=== PATIENT | female | born 1935 | race Caucasian/White ===

== ENCOUNTER 2019-06-14 11:27 | Emergency (ER) | payer MEDICARE, OTHER, SELFPAY ==
[2019-06-14 11:29] VITALS: BMI 30.1
--- NOTE | 2019-06-14 11:35 | ED_ITS ---
HPI - Fall General: Chief Complaint: Fall Stated Complaint: FALL RIGHT FLANK PAIN Time Seen by Provider: 06/14/19 11:34 History of Present Illness: HPI Narrative: Pt presents with daughters for right lateral rib pain that began in earnest this am after shse had laid down and turned over. Patient deneis hemoptyisis or other complaints, states she fell last night and must have landed ontt side. She did not notice significant pain until she rolled over this morning. One of two daughters presents states her mother said she had hit her head but patient deneis head pain or injury. She is on Plavix. No NV, no constipation or heamtochezia. MD complaint: fall Onset (ago): day(s) (1) Fall from: standing Fall witnessed: no Place fall occurred: home Loss of consciousness: None Symptoms prior to fall: none Context: tripped/slipped Location of injury: chest (right lateral ribs) Associated symptoms-after fall: Denies abdominal pain, chest pain, difficulty walking, headache(s) or neck pain Review of Systems Const: Denies: fever, chills, change in appetite or malaise Eyes: Denies: change in vision, blurry vision, eye discharge or eye redness ENMT: Denies: throat pain, uvular edema, painful swallowing, mouth pain, dental pain, nasal congestion or facial/sinus pain Card: Denies: chest pain, irregular heart rhythm, swelling of feet/ankles, shortness of breath on exertion, shortness of breath when lying down or leg pain with exertion Resp: Reports: pain on inspiration; Denies: shortness of breath, productive cough, wheezing or coughing up blood GI: Denies: abdominal pain, nausea, vomiting, diarrhea, constipation or fecal incontinence : Denies: flank pain, difficulty urinating, painful urination, urinary frequency, urinary urgency or urinary hesitancy Musc: Denies: neck pain, extremity pain or extremity swelling Skin/Breast: Denies: rash, itching, redness, yellow skin or dry skin Neuro: Denies: headache, numbness in extremities, weakness in extremities, changes in sensation, lack of coordination or difficulty walking Psych: Denies: anxiety, depression, mood swings, panic attacks, sleeping less, suicidal ideation or homicidal ideation Endo: Denies: excessive urination, excessive thirst or tired all the time Shay/Lymph: Denies: easy bruising, petechiae or enlarged lymph nodes All/Imm: Denies: hives, throat swelling, facial swelling, acute wheezing or seasonal allergies PFSH ED PFSH: Statuses (acute, chronic, etc) shown below reflect problem list status as previously entered and may not be historically accurate Social History Smoking and tobacco status: former smoker Physical Exam Const: COMMON NORMALS: no apparent distress, oriented x3, no limitations, healthy appearing, alert and well nourished GENERAL APPEARANCE: cooperative, comfortable, well kempt and well developed ORIENTATION/CONSCIOUSNESS: Yes awake, Yes oriented to person, Yes oriented to place and Yes oriented to time HENMT: COMMON NORMALS: normocephalic, head/scalp atraumatic, hearing grossly normal bilaterally, external ears normal, EAC's normal, TM's normal bilaterally, external nose normal, nasal mucous membranes and turbinates normal, moist oral mucous membranes, oropharynx normal, dentition normal and gingiva normal HEAD & SCALP: normal to inspection, normocephalic and atraumatic FACE & SINUS: normal facial exam NOSE: external nose normal and nasal mucous membranes and turbinates normal EXTERNAL EAR: Yes external ears normal EXTERNAL AUDITORY CANAL: EAC's normal TYMPANIC MEMBRANE: TM's normal bilaterally MOUTH: oral and palatal mucosa normal, lip normal and tongue normal THROAT: no uvular edema Eye: COMMON NORMALS: PERRL, EOMs intact bilaterally, conjunctivae normal, no scleral icterus and normal visual norman by confrontation GENERAL EYE: normal appearance of both eyes and normal light reflex VISUAL ACUITY: Yes acuity normal ALIGNMENT: Yes alignment normal PERIORBITAL: periorbital findings normal EYELID: eyelids normal CONJUNCTIVA: Yes conjunctivae normal SCLERA: sclerae normal PUPIL: Yes PERRL and Yes accommodation reflex normal DIRECT OPHTHALMOSCOPY: Yes normal light reflex Neck/C-Spine: COMMON NORMALS: full ROM, no lymphadenopathy, supple, no meningeal signs and no JVD GENERAL: Yes normal visual inspection CAROTIDS: Yes normal carotid upstroke CERVICAL SPINE: Yes cervical ROM normal Lymph: LYMPHATIC: no lymphadenopathy noted Chest: COMMONS NORMALS: inspection of chest normal CHEST: No abnormal inspection of the chest, Yes symmetrical chest wall rise, No crepitus and Yes localized rib tenderness with anteroposterior compression Location: 9th rib and 10th rib Resp: COMMON NORMALS: normal respiratory effort, no retractions, no use of accessory muscles and clear to auscultation bilaterally EFFORT & INSPECTION: Yes able to speak in complete sentences and Yes symmetric chest movement AUSCULTATION: clear to auscultation bilaterally Cardio: COMMON NORMALS: no JVD, regular rate, regular rhythm, S1 normal heart sound, S2 normal heart sound, no murmurs and peripheral pulses 2+ throughout RATE: regular rate RHYTHM: regular rhythm HEART SOUNDS: S1 normal and S2 normal PERIPHERAL PULSES: pulses 2+ throughout GI: COMMON NORMALS: normal to inspection, nondistended, normoactive bowel sounds and non-tender : COMMON NORMALS: Yes no CVA tenderness BLADDER/KIDNEY EXAM: Yes no CVA tenderness Back/Pelvis: COMMON NORMALS: no CVA tenderness, thoracic and lumbar spine normal to inspection, no thoracic nor lumbar tenderness and thoraco-lumbar ROM normal Extremity: COMMON NORMALS: normal to inspection, full ROM, normal capillary refill, no calf tenderness and no pedal edema Neuro: COMMON NORMALS: oriented x3, CN's II-XII intact bilaterally, moves all extremities, no focal motor deficits, no sensory deficits noted and gait normal SENSORIUM/ORIENTATION: Yes alert, Yes oriented to person, Yes oriented to place and Yes oriented to time MENINGEAL SIGNS: Yes no meningeal signs SPEECH: speech normal GAIT: Yes normal gait MOTOR EXAM: strength 5/5 throughout, no pronator drift and no tremor noted Psych: COMMON NORMALS: mental status grossly normal, thought process normal, cooperative, affect normal, speech normal and activity/motor behavior normal APPEARANCE: Yes well kempt SPEECH: Yes normal speech THOUGHT PROCESS: normal thought process THOUGHT CONTENT: Yes normal thought content INSIGHT: insight good Skin: COMMON NORMALS: no rashes or lesions noted, no wounds, skin turgor normal and no jaundice GENERAL SKIN EXAM: no rashes or lesions noted and turgor normal Course ED course: Patient resting comfortably in ER. Rad studies neg, labs wnl, will dc home with brief course of pain medication and lidoderm patch. Patient and family agrees. Vital Signs: Vital signs: Vital Signs Temperature 98.2 F 06/14/19 11:38 Pulse Rate 76 06/14/19 11:38 Respiratory Rate 20 H 06/14/19 11:38 Blood Pressure 142/76 06/14/19 11:38 Pulse Oximetry 91 06/14/19 11:38 MDM - Fall Lab Data: Attestation: I reviewed the patient's lab results. Labs: Lab Results 06/14/19 06/14/19 06/14/19 Range/Units 11:40 12:10 12:10 WBC 7.8 (4.0-10.0) 10^3/ uL RBC 4.30 (4.1-5.3) 10^6/u L Hgb 12.0 (11.5-15.3) g/dL Hct 38.0 (37.0-47.0) % MCV 88.4 (81-99) fL MCH 27.9 L (28.0-34.0) pg MCHC 31.6 (30.0-36.0) g/dL RDW 13.4 (12.1-15.1) % Plt Count 180 (130-400) 10^3/c mm MPV 10.7 H (7.4-10.4) fL Neut % (Auto) 73.3 % Lymph % (Auto) 14.6 % [place] % (Auto) 10.1 % Eos % (Auto) 1.2 % Baso % (Auto) 0.4 % Neut # (Auto) 5.7 (1.8-7.7) 10^3/u L Lymph # (Auto) 1.1 (0.8-4.8) 10^3/u L [place] # (Auto) 0.8 (0.2-0.9) 10^3/u L Eos # (Auto) 0.1 (0.0-0.8) 10^3/u L Baso # (Auto) 0.0 (0.0-0.1) 10^3/u L Nucleated RBC % (a uto) 0 % Nucleated RBCs # 0.0 /100WBC Sodium 140 (136-145) mmol/L Potassium 4.0 (3.5-5.1) mmol/L Chloride 103 (98-107) mmol/L Carbon Dioxide 26 (22-29) mmol/L Anion Gap 15.0 (5-19) BUN 21 (8-23) mg/dL Creatinine 0.9 (0.5-0.9) mg/dL Glucose 112 H (74-106) mg/dL Calcium 9.3 (8.8-10.2) mg/Dl Total Bilirubin 0.5 (0.15-1.2) mg/dL AST 16 (0-32) U/L ALT 8 (0-33) U/L Alkaline Phosphata se 135 H (35-105) IU/L Total Protein 7.3 (6.6-8.7) g/dL Albumin 4.2 (3.5-5.2) g/dL Globulin 3.1 (1.3-4.6) g/dL Urine Color Straw (Yellow) Urine Appearance Clear (CLEAR) Urine pH 7 (5-7) Ur Specific Gravit y 1.010 (1.005-1.030) Urine Protein Neg (Negative) Urine Glucose (UA) Norm (Normal) Urine Ketones Negative (Negative) Urine Occult Blood Neg (Negative) Urine Nitrate Negative (Negative) Urine Bilirubin Neg (NEGATIVE) Urine Urobilinogen Norm (Negative) mg/dL Ur Leukocyte Purnima ase Negative (Negative) Discharge Plan Discharge Patient Disposition: Home, Self-Care Clinical Impression: Rib pain on right side Fall as cause of accidental injury at home as place of occurrence Qualifiers: Encounter type: initial encounter Qualified Code(s): W19.XXXA - Unspecified fall, initial encounter Condition: Stable Prescriptions: New hydrocodone-acetaminophen [[place]] 5-325 mg tablet 1 tab PO Q6H Qty: 14 RF: 0 lidocaine [Lidoderm] 5 % adhesive patch,medicated 1 patch TOPICAL Q24H Qty: 15 RF: 0 Referrals: Nicol Hopkins, GRADING MACHINE OPERATOR-C [Primary Care Provider] - Discharge Diet: Advance as tolerated Discharge Activity: Resume usual activity and Use walker/crutches as instructed Patient Instructions: Fall Prevention for Older Adults (ED) Coding Level of Care Code ED Operations Research Analyst for Susanna Hahn Exam Problem Focused
[2019-06-14 11:38] VITALS: BP 142/76; PULSE 76; RESP 20; TEMP 36.8; O2SAT 91
--- NOTE | 2019-06-14 12:00 | XR_ITS ---
WS: [id number] RIBS RIGHT WITH CHEST TECHNIQUE: 3 views of the right ribs with PA chest CLINICAL INFORMATION: fall COMPARISON: FINDINGS: Sternotomy with CABG. Mediastinal clips. Small left pleural effusion with left basilar infiltrate/ate lectasis appears unchanged. Mild pulmonary vascular congestion. Chronic emphysematous change. Bilater al vascular stents. Some images are limited due to artifact. No visualized rib fractures. XR/XR ribs RT mn 3V w CXR1V [id number] IMPRESSION: 1. No visualized right rib fractures. 2. Cardiomegaly with small pleural effusion with left basilar infiltrate or at electasis similar to previous. Recommend correlation for pneumonia. 3. Stable cardiomegaly with sternotomy and CABG. Bilateral vascular stents.
--- NOTE | 2019-06-14 12:00 | CT_ITS ---
WS: [id number] CT HEAD TECHNIQUE: Noncontrast CT of the head obtained from the skullbase to the vertex. CLINICAL INFORMATION: fall unknown head injury on plavix COMPARISON: 6 27,018 DLP: 985.[address] scans at [facility] use at least one of these dose optimization techniques: automat ed exposure control; mA and/or kV adjustment per patient size (includes targeted exams where dose is matched to clinical indication); or iterative reconstruction. FINDINGS: No evidence of intracranial hemorrhage or mass effect. Ventricular system and basal cisterns are barnard nt. Mild small vessel changes with moderate parenchymal volume loss. Benign basal ganglia calcificati ons. No extra-axial fluid collections. No evidence of mass or mass effect. Normal robledo-white differen tiation. Mild mucosal thickening in the ethmoid air cells. Mastoid air cells well aerated. .Normal visualized soft tissues. Notified Chantel Cho DO at 06/14/2019 12:[address]/CT head wo con* [id number] IMPRESSION: 1. No evidence of intracranial hemorrhage or mass effect. 2. Mild small vessel changes. Moderate parenchymal volume loss. 3. No acute intracranial findings.
[2019-06-14 12:15] LABS: Basophils % 0.4 %; Eosinophils # 0.1 10^3/uL (0.0-0.8); Eosinophils % 1.2 %; Lymphocytes # 1.1 10^3/uL (0.8-4.8); Lymphocytes % 14.6 %; Mean Corpuscular HGB Conc 31.6 g/dL (30.0-36.0); Mean Corpuscular Hemoglobin 27.9 pg (28.0-34.0); Mean Corpuscular Volume 88.4 fL (81-99); Mean Platelet Volume 10.7 fL (7.4-10.4); Monocytes # 0.8 10^3/uL (0.2-0.9); Monocytes % 10.1 %; Neutrophils # 5.7 10^3/uL (1.8-7.7); Neutrophils % 73.3 %; Nucleated Red Blood Cells % 0 %; Platelet Count 180 10^3/cmm (130-400); Red Cell Distribution Width 13.4 % (12.1-15.1); White Blood Count 7.8 10^3/uL (4.0-10.0)
[2019-06-14 12:30] LABS: Add Urine Microscopic? NO
[2019-06-14 12:35] LABS: Alanine Aminotransferase 8 U/L (0-33); Albumin Level 4.2 g/dL (3.5-5.2); Alkaline Phosphatase 135 IU/L (35-105); Aspartate Amino Transferase 16 U/L (0-32); Blood Urea Nitrogen 21 mg/dL (8-23); Calcium 9.3 mg/Dl (8.8-10.2); Carbon Dioxide 26 mmol/L (22-29); Chloride 103 mmol/L (98-107); Globulin 3.1 g/dL (1.3-4.6); Glucose 112 mg/dL (74-106); Sodium 140 mmol/L (136-145); Total Bilirubin 0.5 mg/dL (0.15-1.2); Total Protein 7.3 g/dL (6.6-8.7)
[2019-06-14 12:37] LABS: Bilirubin Urine Neg (NEGATIVE); Blood Urine Neg (Negative); Glucose Urine UA Norm (Normal); Ketones Urine Negative (Negative); Leukocyte Esterase Urine Negative (Negative); Nitrate Urine Negative (Negative); Protein Urine Neg (Negative); Urine Appearance Clear (CLEAR); Urine Color Straw (Yellow); Urobilinogen Urine Norm (Negative); pH Urine 7 (5-7)
[2019-06-14 13:52] VITALS: RESP 16
[2019-06-14] MEDS: morphine 4 mg/mL SDV 1 mL IM (13:52)
[2019-06-14] MEDS: lidocaine 5% Patch 1 PATCH TOPICAL (13:52)
[2019-06-14 14:01] VITALS: BP 111/49; PULSE 95; RESP 20; TEMP 36.6; O2SAT 95
== END 2019-06-14 14:02 | disposition home or self-care (01) ==
PROVIDERS: Emergency Provider Emergency Medicine; Family Provider Nurse Practitioner; PCP Nurse Practitioner
DX: R07.81 Pleurodynia (principal); W19.XXXA Unspecified fall, initial encounter; Y92.009 Unspecified place in unspecified non-institutional (private) residence as the place of occurrence of the external cause; Z87.891 Personal history of nicotine dependence
CPT/HCPCS: 36415; 70450; 71101; 80053; 81003; 85025; 96372; 99281; A9270; J2270

== ENCOUNTER 2019-06-19 18:11 | Emergency (ER) | payer MEDICARE, OTHER, SELFPAY ==
[2019-06-19 18:13] VITALS: BP 138/56; PULSE 75; RESP 18; TEMP 36.7; O2SAT 94; BMI 31.8
--- NOTE | 2019-06-19 19:45 | ED_ITS ---
HPI - Fall General: Chief Complaint: Fall Stated Complaint: hip pain Time Seen by Provider: 06/19/19 19:34 History of Present Illness: HPI Narrative: Patient is a 84-year-old female comes into the ED with right rib pain. She had a fall last in her home where she hit the right side of her back and right side of head against a dresser. She denied any loss of consciousness, nausea, vomiting after incident. She then went to the ED the following day and was evaluated. He performed a head CT. Today she feels like the pain has not gotten better and she has not been able to go in and see her primary care doctor yet. Pain is on the back right rib area. Pain is pleuritic. She is all out of her prescribed pain med, given to her after she left the ED. Denies abdominal pain, chest pain, Nausea, vomiting, diarrhea, constipation, dysuria, hematuria, blood in stool, numbness and tingling or weakness to extremities. Review of Systems General: Reports: 10 or more systems reviewed and unremarkable except in HPI and below PFS ED PFSH: Statuses (acute, chronic, etc) shown below reflect problem list status as previously entered and may not be historically accurate Social History Smoking and tobacco status: former smoker Physical Exam Narrative: EXAM NARRATIVE: Patient is an 84-year-old female who is sitting in her wheelchair and experiencing pain on posterior right rib every time she takes a breath. Palpation of the painful area on right side of her back causes pain and I can feel clicking/pop every time she took a breath. Const: COMMON NORMALS: oriented x3 HENMT: COMMON NORMALS: normocephalic HEAD & SCALP: normocephalic MOUTH: oral and palatal mucosa normal THROAT: posterior oropharynx normal and uvula midline Neck/C-Spine: COMMON NORMALS: supple GENERAL: Yes normal visual inspection Resp: COMMON NORMALS: normal respiratory effort, no retractions, no use of accessory muscles and clear to auscultation bilaterally AUSCULTATION: clear to auscultation bilaterally Cardio: COMMON NORMALS: regular rate, regular rhythm, S1 normal heart sound, S2 normal heart sound, no gallops, no clicks, no murmurs and peripheral pulses 2+ throughout RATE: regular rate RHYTHM: regular rhythm HEART SOUNDS: S1 normal and S2 normal PERIPHERAL PULSES: pulses 2+ throughout GI: COMMON NORMALS: normal to inspection, nondistended, normoactive bowel sounds, soft to palpation, non-tender and no masses PALPATION: Yes soft : COMMON NORMALS: Yes no CVA tenderness BLADDER/KIDNEY EXAM: Yes no CVA tenderness Back/Pelvis: COMMON NORMALS: no CVA tenderness Extremity: COMMON NORMALS: normal to inspection Neuro: COMMON NORMALS: oriented x3, CN's II-XII intact bilaterally and moves all extremities Course Vital Signs: Vital signs: Vital Signs Temperature 98.4 F 06/19/19 21:49 Pulse Rate 102 H 06/19/19 21:49 Respiratory Rate 14 06/19/19 21:49 Blood Pressure 140/66 06/19/19 21:49 Pulse Oximetry 98 06/19/19 21:49 MDM - Fall Imaging Data^: Xray Ortho: Attestation: I personally reviewed and interpreted this imaging study as f zeke: My impression: No acute rib fractures. Pleural effusions on left lower lung that appears to be unchanged since chest xray performed in 03/22/2019. Pending radiology report. Radiologist's impression: [address] [address] XRay Report Signed Patient: Denia Price Unit #: [id number] : 1935 Age/Sex: 84 / F ADM Date: 06/19/19 Loc: ER Room/Bed: Attending Dr: Ordering Provider/Ordering MD: Irwin Bearden Date of Service: 06/19/19 Procedure(s): XR ribs RT mn 3V w CXR1V [id number] Accession Number(s): [id number] Report Number: [id number] PROCEDURE INFORMATION: Exam: XR Right Ribs with PA Chest, 3 Views Exam date and time: 06/19/2019 8:52 PM Age: 84 years old Clinical indication: Injury or trauma; Fall; Initial encounter; Rib area; Blunt trauma (contusions or hematomas); Injury date: Last ; Prior surgery; Surgery type: Cabg; Additional info: Back right pleuritic rib pain after fall TECHNIQUE: Imaging protocol: XR Right ribs 3 views with PA chest. COMPARISON: CR XR ribs RT mn 3V w CXR1V [id number] 06/14/2019 12:14 PM FINDINGS: Lungs: Scarring or atelectasis of lower lungs. Likely vessels or calcified granulomata right upper lung. Pleural space: Bilateral pleural effusions persist. Heart/Mediastinum: Similar heart size which is accentuated. Vasculature: Bilateral vascular stents axillary and subclavian levels. The left lung apex is obscured by vascular stents. No dominant pneumothorax. Bones/joints: Postoperative sternotomy. Osteopenia. Bilateral surgical changes of the shoulders. Soft tissue: Densities which overlie the lower lungs near the pleural margin or hemidiaphragms bilaterally are not appreciated on the previous chest and could be external. XR/XR ribs RT mn 3V w CXR1V [id number] IMPRESSION: 1. Persistent bilateral pleural effusions greater on the left. 2. Minor parenchymal opacities of lower lungs favoring atelectasis or scarring. Correlation for any symptoms of pneumonia especially on the left are recommended. No significant interval change. Dictated By: Rufina Tellez DO Signed By: Rufina Tellez DO Signed Date/Time: 06/20/19935 DD/ 4 Discharge Plan Discharge Patient Disposition: Home, Self-Care Clinical Impression: Rib pain on right side Condition: Stable Prescriptions: No Action Lidoderm 5 % adhesive patch,medicated 1 patch TOPICAL Q24H Qty: 15 RF: 0 [place] 5-325 mg tablet 1 tab PO Q6H Qty: 14 RF: 0 Discharge Orders: Discharge Order (Routine); Ordered 06/19/19 Ordered By: Irwin Bearden Referrals: Nicol Hopkins, RESIDENTIAL ENERGY AUDITOR-C [Primary Care Provider] - Discharge Diet: Regular Discharge Activity: Increase activity as tolerated Activity Restrictions/Additional Instructions: Follow-up with her primary care doctor in 7 days for reevaluation. Apply ice and/or warm compress to help with painful area on back. Take ibuprofen or Tylenol as needed for pain. I'm also providing you a written prescription for hydrocodone and you can take as needed for breakthrough pain. Drink plenty of fluids. Discharge Date/Time: 06/19/19 21:50 Coding Level of Care Code ED Stone Mill Operator for [facility] [place]
--- NOTE | 2019-06-19 19:45 | PC.NURSE ---
unable to bear weight on R side since initial fall 06/13/2019
--- NOTE | 2019-06-19 20:26 | XRR_ITS ---
PROCEDURE INFORMATION: Exam: XR Right Ribs with PA Chest, 3 Views Exam date and time: 06/19/2019 8:52 PM Age: 84 years old Clinical indication: Injury or trauma; Fall; Initial encounter; Rib area; Blunt trauma (contusions or hematomas); Injury date: Last ; Prior surgery; Surgery type: Cabg; Additional info: Back right pleuritic rib pain after fall TECHNIQUE: Imaging protocol: XR Right ribs 3 views with PA chest. COMPARISON: CR XR ribs RT mn 3V w CXR1V [id number] 06/14/2019 12:14 PM FINDINGS: Lungs: Scarring or atelectasis of lower lungs. Likely vessels or calcified granulomata right upper lung. Pleural space: Bilateral pleural effusions persist. Heart/Mediastinum: Similar heart size which is accentuated. Vasculature: Bilateral vascular stents axillary and subclavian levels. The left lung apex is obscured by vascular stents. No dominant pneumothorax. Bones/joints: Postoperative sternotomy. Osteopenia. Bilateral surgical changes of the shoulders. Soft tissue: Densities which overlie the lower lungs near the pleural margin or hemidiaphragms bilaterally are not appreciated on the previous chest and could be external. XR/XR ribs RT mn 3V w CXR1V [id number] IMPRESSION: 1. Persistent bilateral pleural effusions greater on the left. 2. Minor parenchymal opacities of lower lungs favoring atelectasis or scarring. Correlation for any symptoms of pneumonia especially on the left are recommended. No significant interval change.
[2019-06-19] MEDS: HYDROcodone-acetaminophen 5-325 mg Tablet 1 TAB PO (21:38)
[2019-06-19 21:49] VITALS: BP 140/66; PULSE 102; RESP 14; TEMP 36.9; O2SAT 98
== END 2019-06-19 21:50 | disposition home or self-care (01) ==
PROVIDERS: Emergency Provider Physician Assistant; Family Provider Nurse Practitioner; PCP Nurse Practitioner
DX: R07.81 Pleurodynia (principal); Z87.891 Personal history of nicotine dependence
CPT/HCPCS: 71101; 99281

== ENCOUNTER 2019-11-01 18:20 | Emergency (ER) | payer MEDICARE, OTHER, SELFPAY ==
--- NOTE | 2019-11-01 18:22 | XRR_ITS ---
PROCEDURE INFORMATION: Exam: XR Right Knee Exam date and time: 11/01/2019 7:26 PM Age: 84 years old Clinical indication: Injury or trauma; Fall; Initial encounter; Blunt trauma; Knee; Right TECHNIQUE: Imaging protocol: XR Right knee. Views: 3 views. COMPARISON: CR Knee 3 views, RIGHT* [id number] 01/31/2017 11:15 AM FINDINGS: Bones/joints: No acute fracture evident. Small joint line osteophytes. Posterior patellar spurring, chronic. Possible small joint effusion. Soft tissues: Normal. XR/XR knee RT 3V* [id number] IMPRESSION: No acute fracture evident. Mild degenerative changes. Possible small joint effusion.
[2019-11-01 18:25] VITALS: BP 149/69; PULSE 70; RESP 18; TEMP 36.6; O2SAT 96; BMI 31.1
[2019-11-01 19:11] VITALS: PULSE 76
--- NOTE | 2019-11-01 19:11 | W.ED.EXTPRO ---
HPI - Extremity Problem General: Chief complaint: Extremity Problem,Nontraumatic Stated complaint: right knee pain Time Seen by Provider: 11/01/19 19:05 Source: patient Mode of arrival: ambulatory Limitations: no limitations History of Present Illness: HPI Narrative: 84-year-old female who states she has had right knee pain for the last 5 days. She states she got up out of bed and felt a pop in her right knee 1 week ago and started having pain since then. States that hurts to bear weight and has had difficulty walking. Denies any fevers. She states she has had difficulty that knee in the past. Complaint: extremity pain and joint pain Onset (ago): day(s) Pain Consistency: constant Location: right Severity scale (1-10): 5 Radiation: none Relieving factors: rest Exacerbating factors: weight bearing Associated symptoms: Deny chest pain, fever(s) or rash Review of Systems Const: Denies: fever(s), chills, body aches or change in appetite Eyes: Denies: blurry vision or eye discomfort ENMT: Denies: throat pain or dental pain Card: Denies: chest pain Resp: Denies: dyspnea GI: Denies: abdominal pain, nausea, vomiting or diarrhea : Denies: dysuria Musc: Reports: joint pain Skin/Breast: Denies: rash Neuro: Denies: headache(s) Psych: Denies: depression Shay/Lymph: Denies: easy bruising All/Imm: Denies: urticaria PFSH ED PFSH: Medical History Asthma 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 COPD (chronic obstructive pulmonary disease) Diabetes GERD (gastroesophageal reflux disease) History of [place] (myocardial infarction) Hyperlipidemia Hypertension PAD (peripheral artery disease) Post-herpetic polyneuropathy SVT (supraventricular tachycardia) Surgical History History of hysterectomy Hx of CABG Family History Other CAD (coronary artery disease) Cancer Hypertension Social History Smoking and tobacco status: never smoked Second hand smoke exposure: No Smoking risk assessment/counseling performed?: No Alcohol intake: never Desire information about alcohol rehabilitation?: No Counseling given: No Desire information about substance/drug rehabilitation?: No Counseling given: No Adopted: No Caregiver/support person: No Lives independently: Yes Household members: family Housing: House Marital status: / Number of children: 4 Current occupational status: retired History of recent travel: No Current gender identity: Female Physical Exam Const: COMMON NORMALS: no acute distress, patient oriented x3 and healthy appearing HENMT: COMMON NORMALS: normocephalic and atraumatic HEAD & SCALP: normocephalic and atraumatic Eye: COMMON NORMALS: Equal, round and reactive pupils present and EOMs intact bilaterally PUPIL: Yes Equal, round and reactive pupils present Neck/C-Spine: COMMON NORMALS: full ROM and supple Chest: COMMONS NORMALS: normal inspection of the chest and normal palpation of entire chest wall Resp: COMMON NORMALS: normal respiratory effort, No retractions, No use of accessory muscles and clear to auscultation bilaterally AUSCULTATION: clear to auscultation bilaterally Cardio: COMMON NORMALS: regular rate, regular rhythm and No murmurs present (Cardio) RATE: regular rate RHYTHM: regular rhythm GI: COMMON NORMALS: Normal to inspection, nondistended, normoactive bowel sounds present, Soft to palpation, non-tender and no masses PALPATION: Yes Soft to palpation Extremity: COMMON NORMALS: normal to inspection NARRATIVE EXTREMITY EXAM: Tenderness over the knee joint and does have pain with range of motion. No warmth to touch or erythema no calf tenderness Neuro: COMMON NORMALS: patient oriented x3, moves all extremities and no focal motor deficits Psych: COMMON NORMALS: mental status grossly normal, Normal thought process present and cooperative THOUGHT PROCESS: Normal thought process present Skin: COMMON NORMALS: no rashes or lesions noted and no wounds GENERAL SKIN EXAM: no rashes or lesions noted Course Vital Signs: Vital signs: Vital Signs Temperature 97.9 F 11/01/19 18:25 Pulse Rate 73 11/01/19 20:25 Respiratory Rate 14 11/01/19 20:25 Blood Pressure 190/77 11/01/19 20:25 Pulse Oximetry 99 11/01/19 20:25 MDM - Extremity (Nontraumatic) MDM Narrative: Medical decision making narrative: Patient presents with knee pain likely knee sprain. X-ray showed no fracture and exam here is benign. CBC and CRP are normal with no signs of septic arthritis. Patient is stable for discharge and is to follow-up with orthopedics. Lab Data: Labs: Lab Results 11/01/19 11/01/19 Range/Units 19:32 19:32 WBC 6.5 (4.0-10.0) 10^3/ uL RBC 4.22 (4.1-5.3) 10^6/u L Hgb 12.0 (11.5-15.3) g/dL Hct 39.4 (37.0-47.0) % MCV 93.4 (81-99) fL MCH 28.4 (28.0-34.0) pg MCHC 30.5 (30.0-36.0) g/dL RDW 13.0 (12.1-15.1) % Plt Count 174 (130-400) 10^3/c mm MPV 11.4 H (7.4-10.4) fL Neut % (Auto) 59.0 % Lymph % (Auto) 25.0 % Frederick % (Auto) 13.0 % Eos % (Auto) 2.2 % Baso % (Auto) 0.5 % Neut # (Auto) 3.8 (1.8-7.7) 10^3/u L Lymph # (Auto) 1.6 (0.8-4.8) 10^3/u L Frederick # (Auto) 0.8 (0.2-0.9) 10^3/u L Eos # (Auto) 0.1 (0.0-0.8) 10^3/u L Baso # (Auto) 0.0 (0.0-0.1) 10^3/u L Nucleated RBC % (a uto) 0 % Nucleated RBCs # 0.0 /100WBC C-Reactive Protein 4.3 (0.0-4.9) mg/L Imaging Data^: xr r knee: Attestation: I personally reviewed and interpreted this imaging study as follows: Radiologist's impression: /Gender: 84Y, F Primary Location: ER Procedure: XR knee RT 3V* 16457 Study Date: 11/01/2019 7:11:00 PM Order #: [id number] Report Status: Finalized Reason: injury [facility] [address] [place] [address] XRay Report Signed Patient: Denia Price Unit #: [id number] : 1935 Age/Sex: 84 / F ADM Date: 11/01/19 Loc: ER Room/Bed: Attending Dr: Ordering Provider/Ordering MD: Seb Pascual MD Date of Service: 11/01/19 Procedure(s): XR knee RT 3V* 20357 Accession Number(s): [id number] Report Number: [id number] PROCEDURE INFORMATION: Exam: XR Right Knee Exam date and time: 11/01/2019 7:26 PM Age: 84 years old Clinical indication: Injury or trauma; Fall; Initial encounter; Blunt trauma; Knee; Right TECHNIQUE: Imaging protocol: XR Right knee. Views: 3 views. COMPARISON: CR Knee 3 views, RIGHT* [id number] 01/31/2017 11:15 AM FINDINGS: Bones/joints: No acute fracture evident. Small joint line osteophytes. Posterior patellar spurring, chronic. Possible small joint effusion. Soft tissues: Normal. XR/XR knee RT 3V* [id number] IMPRESSION: No acute fracture evident. Mild degenerative changes. Possible small joint effusion. Discharge Plan Discharge Patient Disposition: Home, Self-Care Clinical Impression: Knee pain Qualifiers: Chronicity: acute Laterality: right Qualified Code(s): M25.561 - Pain in right knee Condition: Stable Prescriptions: No Action rosuvastatin PO .HS RF: 0 Lidoderm 5 % adhesive patch,medicated 1 patch TOPICAL DAILY Qty: 30 RF: 2 nitroglycerin [Nitrostat] 0.4 mg tablet, sublingual 0.4 mg SUBLINGUAL Q5M PRNRF: 0 Perforomist 20 mcg/2 mL solution for nebulization 2 ml INHALATION BID RF: 0 budesonide [Pulmicort] 0.5 mg/2 mL suspension for nebulization 0.5 mg INHALATION BID RF: 0 famotidine [Pepcid] 40 mg tablet 40 mg PO DAILY Qty: 30 RF: 4 diclofenac sodium [Voltaren] 1 % gel 2 gm TOPICAL QID Qty: 100 RF: 0 rosuvastatin 40 mg tablet 40 mg PO DAILY Qty: 90 RF: 3 clopidogrel 75 mg tablet 75 mg PO DAILY Qty: 90 RF: 3 verapamil 240 mg capsule,ext rel. pellets 24 hr 240 mg PO DAILY Qty: 90 RF: 3 furosemide 40 mg tablet 40 mg PO BID PRN (Reason: edema) Qty: 180 RF: 3 isosorbide mononitrate 30 mg tablet extended release 24 hr 30 mg PO DAILY Qty: 90 RF: 3 potassium chloride 20 mEq tablet extended release 20 meq PO DAILY Qty: 90 RF: 0 montelukast [Singulair] 10 mg tablet 10 mg PO DAILY Qty: 30 RF: 2 duloxetine [Cymbalta] 30 mg capsule,delayed release(DR/EC) 30 mg PO BID Qty: 60 RF: 2 topiramate 25 mg tablet 25 mg PO BID Qty: 60 RF: 2 Entriken 5-325 mg tablet 1 tab PO Q6H Qty: 14 RF: 0 Discharge Orders: Discharge Order (Routine); Ordered 11/01/19 Ordered By: Seb Pascual Referrals: Nicol Hopkins FNP-C [Primary Care Provider] - Jimmy Mata MD [Physician] - 1-3 days Discharge Diet: Advance as tolerated Discharge Activity: Resume usual activity Patient Instructions: Knee Sprain (ED) Discharge Date/Time: 11/01/19 20:27 Coding Level of Care Code ED Unload Associate for Susanna Fwd Exam Comprehensive
--- NOTE | 2019-11-01 19:14 | PC.NURSE ---
patient states she stood up one morning and her right knee went out from under her, patient states this happened a week ago. patient states her knee has not stopped hurting since. patients right knee presents swollen and the front and back of knee are hurting.
[2019-11-01 19:17] VITALS: BP 155/92; PULSE 76; RESP 14; O2SAT 98
[2019-11-01] MEDS: HYDROcodone-acetaminophen 5-325 mg Tablet 1 TAB PO (19:22)
[2019-11-01 19:38] LABS: Basophils % 0.5 %; Eosinophils # 0.1 10^3/uL (0.0-0.8); Eosinophils % 2.2 %; Hematocrit 39.4 % (37.0-47.0); Lymphocytes # 1.6 10^3/uL (0.8-4.8); Mean Corpuscular HGB Conc 30.5 g/dL (30.0-36.0); Mean Corpuscular Hemoglobin 28.4 pg (28.0-34.0); Mean Corpuscular Volume 93.4 fL (81-99); Mean Platelet Volume 11.4 fL (7.4-10.4); Monocytes # 0.8 10^3/uL (0.2-0.9); Neutrophils # 3.8 10^3/uL (1.8-7.7); Nucleated Red Blood Cells % 0 %; Platelet Count 174 10^3/cmm (130-400); Red Blood Count 4.22 10^6/uL (4.1-5.3); White Blood Count 6.5 10^3/uL (4.0-10.0)
[2019-11-01 19:53] VITALS: BP 119/88; PULSE 68; RESP 14; O2SAT 98
[2019-11-01 19:54] LABS: C Reactive Protein 4.3 mg/L (0.0-4.9)
[2019-11-01 20:25] VITALS: BP 190/77; PULSE 73; RESP 14; O2SAT 99
--- NOTE | 2019-11-04 11:54 | DCPLANNER ---
manager dairy had message to schedule a follow up appointment for patient with ortho. manager dairy called the clinic, spoke with Ly, gave clinic patients information. manager dairy was told that patients information would be printed and reviewed. Clinic will call community case manager and patient with appointment information.
--- NOTE | 2019-11-05 10:30 | DCPLANNER ---
[facility] case packer and sealer and informed case packer and sealer that when she called patient to schedule an appointment that patient declined appointment at this time. Patient stated that she has an appointment scheduled with her primary care physician.
== END 2019-11-01 20:27 | disposition home or self-care (01) ==
PROVIDERS: Emergency Provider Emergency Medicine; PCP Nurse Practitioner
DX: M25.561 Pain in right knee (principal); J44.9 Chronic obstructive pulmonary disease, unspecified; E11.9 Type 2 diabetes mellitus without complications; I25.2 Old myocardial infarction; E78.5 Hyperlipidemia, unspecified; I10 Essential (primary) hypertension; Z95.1 Presence of aortocoronary bypass graft
CPT/HCPCS: 12345; 29530; 73562; 85025; 86140; 99281; 99283; E0114

== ENCOUNTER → 2019-11-21 15:51 | Outpatient (BNVA) | payer MEDICARE, OTHER, SELFPAY | PROVIDERS: PCP Nurse Practitioner; Visit Provider Nurse Practitioner | DX: E11.9 Type 2 diabetes mellitus without complications (principal) | CPT/HCPCS: 80053; 80061; 81000; 83036; 84443 ==

== ENCOUNTER 2020-01-22 12:07 | Inpatient (IN) | payer MEDICARE, SELFPAY ==
[2020-01-22] VITALS (14 sets, daily range): BP systolic 108–140; BP diastolic 70–100; PULSE 90–128; RESP 14–24; TEMP 36.5–37.1; O2SAT 94–99; BMI 30.9
--- NOTE | 2020-01-22 12:35 | ECG_ITS ---
[facility] Test Date: 2020-01-22 Pat Name: Denia Price Department: Room: Gender: Female Ditcher: helena : 1935 Requested By: Saima Mckeon Order Number: [id number] Yulia MD: Jah Chong M.D. Measurements Intervals [place] Rate: 123 P: CA: -1 QRS: 16 QRSD: 129 T: 32 QT: 331 QTc: 475 Interpretive Statements ATRIAL FIBRILLATION WITH RAPID VENTRICULAR RESPONSE LEFT BUNDLE BRANCH BLOCK [120+ ms QRS DURATION, 80+ ms Q/S IN V1/V2, 85+ ms R IN I/aVL/V5/V6] Compared to ECG 12/21/2017 18:14:00 Sinus tachycardia no longer present Myocardial infarct finding no longer present Sinus rhythm no longer present First degree AV block no longer present Electronically Signed On 01-22-2020 18:10:29 CDT by Jah Chong M.D. [id number]
--- NOTE | 2020-01-22 12:35 | XRR_ITS ---
PROCEDURE INFORMATION: Exam: XR Chest, 1 View Exam date and time: 01/22/2020 1:11 PM Age: 84 years old Clinical indication: Chest pain; Prior surgery; Surgery type: Open heart TECHNIQUE: Imaging protocol: XR of the chest Views: 1 view. COMPARISON: CR XR ribs RT mn 3V w CXR1V [id number] 06/19/2019 8:43 PM FINDINGS: Lungs: Probable left lung base compressive atelectasis. Pleural space: Moderate-sized left pleural effusion and smaller right pleural effusion, unchanged. Heart/Mediastinum: Prior CABG. Heart size probably upper normal. Vasculature: Bilateral subclavian/axillary region vascular stents in place, unchanged. Bones/joints: Unremarkable. XR/XR chest 1V portable [id number] IMPRESSION: No apparent change from 06/19/2019. Prior surgeries. Pleural effusions, larger on the left.
--- NOTE | 2020-01-22 13:40 | W.ED.ARRPALP ---
HPI - Arrhythmia/Palpitations General: Chief Complaint: Arrhythmia/Palpitations Stated Complaint: abnormal heartrate Time Seen by Provider: 01/22/20 12:51 History of Present Illness: HPI narrative: This is an 84-year-old female who presents today with shortness of breath. Her symptoms have been exertional and present for about 3 weeks. They have been getting worse. She also has had swelling in her legs. She went to her primary care doctor for checkup today and was noted to have new onset atrial fibrillation with RVR. She was sent to the ED for further evaluation. She has had open heart surgery some 20 years ago. She has not had any problems since then she says. She is never had A. fib. It sounds like she may have had CHF in the past but not to this degree. She takes Lasix. complaint: rapid heart beat, heart racing and palpitations Onset (ago): week(s) (2 or 3) Duration: constant Severity: severe Context: occurred during rest and occurred during exertion Associated symptoms: Deny nausea or vomiting Review of Systems General: Reports: 10 or more systems reviewed and unremarkable except in HPI and below Const: Reports: fatigue; Denies: fever(s), chills or malaise Eyes: Denies: change in vision ENMT: Denies: odynophagia Card: Reports: swelling of feet/ankles and dyspnea on exertion; Denies: chest pain Resp: Reports: dyspnea; Denies: productive cough or non-productive cough GI: Denies: abdominal pain, nausea or vomiting : Denies: flank pain or difficulty voiding Musc: Denies: neck pain or back pain Skin/Breast: Denies: rash Neuro: Denies: headache(s), numbness in extremities or weakness in extremities Shay/Lymph: Denies: easy bruising or easy bleeding PFSH ED PFSH: Medical History Asthma 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 COPD (chronic obstructive pulmonary disease) Diabetes GERD (gastroesophageal reflux disease) History of [place] (myocardial infarction) Hyperlipidemia Hypertension PAD (peripheral artery disease) Post-herpetic polyneuropathy SVT (supraventricular tachycardia) Surgical History History of hysterectomy Hx of CABG Family History Other CAD (coronary artery disease) Cancer Hypertension Social History Smoking and tobacco status: never smoked Second hand smoke exposure: No Smoking risk assessment/counseling performed?: No Alcohol intake: never Desire information about alcohol rehabilitation?: No Counseling given: No Desire information about substance/drug rehabilitation?: No Counseling given: No Adopted: No Caregiver/support person: No Lives independently: Yes Household members: family Housing: House Marital status: / Number of children: 4 Current occupational status: retired History of recent travel: No Current gender identity: Female Physical Exam Const: COMMON NORMALS: no acute distress, patient oriented x3, no limitations and alert GENERAL APPEARANCE: cooperative and comfortable HENMT: HEAD & SCALP: normal to inspection FACE & SINUS: normal facial exam Eye: GENERAL EYE: appearance normal, both eyes and all related structures Neck/C-Spine: COMMON NORMALS: supple, no meningeal signs and no JVD Chest: COMMONS NORMALS: normal inspection of the chest Resp: EFFORT & INSPECTION: Yes tachypneic and Yes labored AUSCULTATION: diminished lung sounds bilateral in the lower lung norman Cardio: COMMON NORMALS: no JVD and No murmurs present (Cardio) RATE: tachycardic RHYTHM: abnormal rhythm irregularly irregular GI: COMMON NORMALS: Normal to inspection, nondistended, normoactive bowel sounds present, Soft to palpation and non-tender INSPECTION: Yes normal to inspection AUSCULTATION: Yes normoactive bowel sounds PALPATION: Yes Soft to palpation Back/Pelvis: COMMON NORMALS: thoracic and lumbar spine normal to inspection Extremity: GENERAL: Yes edema (+2) Neuro: COMMON NORMALS: patient oriented x3, moves all extremities, no focal motor deficits and no sensory deficits noted SENSORIUM/ORIENTATION: Yes alert MENINGEAL SIGNS: Yes no meningeal signs Psych: COMMON NORMALS: mental status grossly normal, cooperative and normal affect Skin: COMMON NORMALS: no rashes or lesions noted and turgor normal GENERAL SKIN EXAM: no rashes or lesions noted and turgor normal Course ED course: A. fib with RVR. This was treated with a Cardizem bolus and drip. Initially we thought the patient was having low blood pressures but it turns out she was taking the cuff off because it was getting too tight. She was given a about 100 cc fluid bolus to get her blood pressure up prior to the Cardizem. Her blood pressure has now been in the 120s to 130s consistently. Her heart rate is going anywhere between 101 120 now on the Cardizem. She will be admitted to the hospitalist service for further management. Dr. 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 Vital Signs: Vital signs: Vital Signs Temperature 98.7 F 01/22/20 12:45 Pulse Rate 116 H 01/22/20 15:06 Respiratory Rate 18 01/22/20 15:06 Blood Pressure 137/90 01/22/20 15:06 Pulse Oximetry 94 01/22/20 14:39 MDM - Arrhythmia/Palpitations MDM Narrative: Medical decision making narrative: A. fib, new onset with RVR. CHF likely related to the A. fib. Doubt pneumonia. Doubt COVID. No chest pain but she does have a cardiac history. Lab Data: Labs: Lab Results 01/22/20 01/22/20 01/22/20 Range/Units 13:50 13:50 13:50 WBC 10.3 H (4.0-10.0) 10^3/ uL RBC 4.62 (4.1-5.3) 10^6/u L Hgb 13.0 (11.5-15.3) g/dL Hct 43.0 (37.0-47.0) % MCV 93.1 (81-99) fL MCH 28.1 (28.0-34.0) pg MCHC 30.2 (30.0-36.0) g/dL RDW 13.3 (12.1-15.1) % Plt Count 197 (130-400) 10^3/c mm MPV 10.8 H (7.4-10.4) fL Neut % (Auto) 70.9 % Lymph % (Auto) 13.5 % Woodson % (Auto) 11.4 % Eos % (Auto) 3.6 % Baso % (Auto) 0.2 % Neut # (Auto) 7.28 (1.8-7.7) 10^3/u L Lymph # (Auto) 1.4 (0.8-4.8) 10^3/u L Woodson # (Auto) 1.2 H (0.2-0.9) 10^3/u L Eos # (Auto) 0.4 (0.0-0.8) 10^3/u L Baso # (Auto) 0.0 (0.0-0.1) 10^3/u L Nucleated RBC % (a uto) 0 % Nucleated RBCs # 0.0 /100WBC Sodium 139 (136-145) mmol/L Potassium 3.9 (3.5-5.1) mmol/L Chloride 105 (98-107) mmol/L Carbon Dioxide 24 (22-29) mmol/L Anion Gap 13.9 (5-19) BUN 12 (8-23) mg/dL Creatinine 0.8 (0.5-0.9) mg/dL GFR Calculation Not Reportable Glucose 110 (65-115) mg/dL Calculated Osmolal ity 285 (285-295) mOsm/k g Calcium 9.3 (8.5-10.5) mg/dL Total Bilirubin 0.9 (0.15-1.2) mg/dL AST 15 (0-32) U/L ALT 7 (0-33) U/L Alkaline Phosphata se 109 H (35-105) IU/L Troponin T Baselin e 15 H (0-10) ng/L NT-Pro-B Natriuret Pep (0-450) pg/mL Total Protein 7.3 (6.6-8.7) g/dL Albumin 3.8 (3.5-5.2) g/dL Globulin 3.5 (1.3-4.6) g/dL 01/22/20 Range/Units 13:50 WBC (4.0-10.0) 10^3/ uL RBC (4.1-5.3) 10^6/u L Hgb (11.5-15.3) g/dL Hct (37.0-47.0) % MCV (81-99) fL MCH (28.0-34.0) pg MCHC (30.0-36.0) g/dL RDW (12.1-15.1) % Plt Count (130-400) 10^3/c mm MPV (7.4-10.4) fL Neut % (Auto) % Lymph % (Auto) % Woodson % (Auto) % Eos % (Auto) % Baso % (Auto) % Neut # (Auto) (1.8-7.7) 10^3/u L Lymph # (Auto) (0.8-4.8) 10^3/u L Woodson # (Auto) (0.2-0.9) 10^3/u L Eos # (Auto) (0.0-0.8) 10^3/u L Baso # (Auto) (0.0-0.1) 10^3/u L Nucleated RBC % (a uto) % Nucleated RBCs # /100WBC Sodium (136-145) mmol/L Potassium (3.5-5.1) mmol/L Chloride (98-107) mmol/L Carbon Dioxide (22-29) mmol/L Anion Gap (5-19) BUN (8-23) mg/dL Creatinine (0.5-0.9) mg/dL GFR Calculation Glucose (65-115) mg/dL Calculated Osmolal ity (285-295) mOsm/k g Calcium (8.5-10.5) mg/dL Total Bilirubin (0.15-1.2) mg/dL AST (0-32) U/L ALT (0-33) U/L Alkaline Phosphata se (35-105) IU/L Troponin T Baselin e (0-10) ng/L NT-Pro-B Natriuret Pep 2379 H (0-450) pg/mL Total Protein (6.6-8.7) g/dL Albumin (3.5-5.2) g/dL Globulin (1.3-4.6) g/dL Discharge Plan Discharge Condition: Good Prescriptions: No Action Lidoderm 5 % adhesive patch,medicated 1 patch TOPICAL DAILY Qty: 30 RF: 2 nitroglycerin [Nitrostat] 0.4 mg tablet, sublingual 0.4 mg SUBLINGUAL Q5M PRN (Reason: CHEST PAINS) RF: 0 Perforomist 20 mcg/2 mL solution for nebulization 2 ml INHALATION BID RF: 0 budesonide [Pulmicort] 0.5 mg/2 mL suspension for nebulization 0.5 mg INHALATION BID RF: 0 rosuvastatin 40 mg tablet 40 mg PO DAILY Qty: 90 RF: 3 clopidogrel 75 mg tablet 75 mg PO DAILY Qty: 90 RF: 3 verapamil 240 mg capsule,ext rel. pellets 24 hr 240 mg PO DAILY Qty: 90 RF: 3 furosemide 40 mg tablet 40 mg PO BID PRN (Reason: edema) Qty: 180 RF: 3 isosorbide mononitrate 30 mg tablet extended release 24 hr 30 mg PO DAILY Qty: 90 RF: 3 magnesium L-lactate [Magtab] 84 mg tablet extended release 84 mg PO DAILY Qty: 30 RF: 5 famotidine 40 mg tablet See Rx Instructions .ROUTE .COMPLEX Qty: 30 RF: 2 nitrofurantoin monohyd/m-cryst [Macrobid] 100 mg capsule 100 mg PO Q12H 7 Days Qty: 14 RF: 0 montelukast [Singulair] 10 mg tablet 10 mg PO DAILY Qty: 30 RF: 2 duloxetine [Cymbalta] 30 mg capsule,delayed release(DR/EC) 30 mg PO BID Qty: 60 RF: 2 topiramate 25 mg tablet 25 mg PO BID Qty: 60 RF: 2 potassium chloride 20 mEq tablet extended release 20 meq PO DAILY Qty: 90 RF: 0 Coding Level of Care Code ED Controlled Area Checker for Chg Fwd Exam Comprehensive
[2020-01-22 14:04] LABS: Basophils % 0.2 %; Eosinophils # 0.4 10^3/uL (0.0-0.8); Eosinophils % 3.6 %; Lymphocytes # 1.4 10^3/uL (0.8-4.8); Lymphocytes % 13.5 %; Mean Corpuscular HGB Conc 30.2 g/dL (30.0-36.0); Mean Corpuscular Hemoglobin 28.1 pg (28.0-34.0); Mean Corpuscular Volume 93.1 fL (81-99); Mean Platelet Volume 10.8 fL (7.4-10.4); Monocytes # 1.2 10^3/uL (0.2-0.9); Monocytes % 11.4 %; Neutrophils # 7.28 10^3/uL (1.8-7.7); Neutrophils % 70.9 %; Nucleated Red Blood Cells % 0 %; Platelet Count 197 10^3/cmm (130-400); Red Blood Count 4.62 10^6/uL (4.1-5.3); Red Cell Distribution Width 13.3 % (12.1-15.1); White Blood Count 10.3 10^3/uL (4.0-10.0)
[2020-01-22 14:22] LABS: Alanine Aminotransferase 7 U/L (0-33); Albumin Level 3.8 g/dL (3.5-5.2); Alkaline Phosphatase 109 IU/L (35-105); Anion Gap 13.9 (5-19); Aspartate Amino Transferase 15 U/L (0-32); Blood Urea Nitrogen 12 mg/dL (8-23); Calcium 9.3 mg/dL (8.5-10.5); Carbon Dioxide 24 mmol/L (22-29); Chloride 105 mmol/L (98-107); Globulin 3.5 g/dL (1.3-4.6); Glucose 110 mg/dL (65-115); Osmolality Calculated 285 mOsm/kg (285-295); Potassium 3.9 mmol/L (3.5-5.1); Sodium 139 mmol/L (136-145); Total Bilirubin 0.9 mg/dL (0.15-1.2); Total Protein 7.3 g/dL (6.6-8.7)
[2020-01-22 14:25] LABS: Troponin(5th) Baseline 15 ng/L (0-10)
[2020-01-22] MEDS: sodium chloride 0.9% 500 ML 999 ML IV (14:28)
--- NOTE | 2020-01-22 14:35 | ECG_ITS ---
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 Measurements Intervals [place] Rate: 115 P: LA: -1 QRS: 37 QRSD: 130 T: 29 QT: 349 QTc: 483 Interpretive Statements ATRIAL FIBRILLATION WITH RAPID VENTRICULAR RESPONSE LEFT BUNDLE BRANCH BLOCK [120+ ms QRS DURATION, 80+ ms Q/S IN V1/V2, 85+ ms R IN I/aVL/V5/V6] Compared to ECG 01/22/2020 12:44:01 No significant changes Electronically Signed On 01-22-2020 18:15:28 CDT by Jah Chong M.D. [id number]
[2020-01-22 15:03] LABS: NT Pro B Type Natriuretic Pept 2379 pg/mL (0-450)
--- NOTE | 2020-01-22 16:11 | P.HP_ITS ---
Providers/Chief Complaint Admitting Physician: Wilfredo Aponte MD Primary Care Provider: Nicol Hopkins, [employer] B[employer]KER-C Chief Complaint: abnormal heartrate History of Present Illness Denia Price is a 84 year old female with a past medical history of CAD, three-vessel CABG, CHF, history of atrial fibrillation on verapamil, not on anticoagulation due to history of a splenic hematoma, not sure why she is not on anticoagulation currently, hypertension, hyperlipidemia, GERD, COPD, history of chronic left pleural effusion, history of depression, bilateral lower extremity edema, who presents to [facility] from her primary care physician's office due to concerns for atrial fibrillation. Patient tells me that she has been doing well, she lives in [facility], lives with her daughter, she has been doing well recently, recent fevers, no cough, she recently traveled to [place] to visit her niece who was diagnosed with stage IV cancer, she says that recently her urine had a foul odor to it, so she presented to her primary care physician's office, she was given Bactrim, she was following up with her primary care physician for the results of her urine culture blood work, when her primary care physician was concerned for heart rate, she was found to have atrial fibrillation heart rates in the 120s to 130s. Patient states that she was feeling fine. As far as I can look at patient's records, back in 2018, she had multiple admissions with Malcolm dunham with RVR, was on Cardizem, and digoxin, there was some confusion with her medications, but she was discharged on Cardizem and digoxin, she was not placed back on anticoagulation because at that time she had abdom inal pain secondary to splenic rupture and concerns for splenic bleeding, but that was roughly 2 years ago, I am not sure why she is not on anticoagulation at this point. Also she is only on verapamil. Patient's not sure why she is not on any other medication for atrial fibrillation, why she is not on digoxin, she not sure if she suffered a side effect. In addition she is not sure why she is not on anticoagulation. Denies any hemorrhagic bleed, any GI bleed, any bleed in her brain, she is not even sure about her splenic rupture. Patient tells me that her executive director of marketing is Dr. Vargas will not reach out to him., She does report more bilateral lower extremity edema, more shortness of breath with exertion, but nothing out of the ordinary, no recent exacerbations, no chest pain, no strokelike symptoms Review of Systems Const: Denies: fever(s), chills, fatigue or malaise Eyes: Denies: change in vision or blurry vision ENMT: Denies: nasal congestion Resp: Reports: dyspnea; Denies: productive cough, non-productive cough or wheezing GI: Denies: abdominal pain, nausea, vomiting, hematemesis, diarrhea, constipation, hematochezia or melena : Denies: flank pain, dysuria or urinary frequency Musc: Denies: neck pain or back pain Skin/Breast: Denies: rash Neuro: Denies: headache(s), dizziness or vertigo Psych: Denies: anxiety or depression Endo: Denies: polyuria or polydipsia Medications/Allergies Home Medications Medication Instructions Recorded Confirmed Last Taken Type budesonide 0.5 mg/2 mL suspension 0.5 mg INHALATION BID 07/03/19 01/22/20 01/21/20 History for nebulization formoterol fumarate 20 mcg/2 mL 2 ml INHALATION BID 07/03/19 01/22/20 01/21/20 History solution for nebulization nitroglycerin 0.4 mg sublingual 0.4 mg SUBLINGUAL Q5M PRN 07/03/19 01/22/20 Unknown History tablet lidocaine 5 % topical patch 1 patch TOPICAL DAILY #30 each 08/06/19 01/22/20 Unknown Rx clopidogrel 75 mg tablet 75 mg PO DAILY #90 tab 08/28/19 01/22/20 01/21/20 Rx furosemide 40 mg tablet 40 mg PO BID PRN #180 tab 08/28/19 01/22/20 01/21/20 Rx isosorbide mononitrate 30 mg 30 mg PO DAILY #90 tab 08/28/19 01/22/20 01/21/20 Rx tablet,extended release 24 hr rosuvastatin 40 mg tablet 40 mg PO DAILY #90 tab 08/28/19 01/22/20 01/21/20 Rx verapamil 240 mg 24 hr 240 mg PO DAILY #90 cap 08/28/19 01/22/20 01/21/20 Rx capsule,extended release magnesium L-lactate 84 mg 84 mg PO DAILY #30 tab 11/03/19 01/22/20 01/21/20 Rx tablet,extended release famotidine 40 mg tablet See Rx Instructions .ROUTE 11/27/19 01/22/20 01/21/20 Rx .COMPLEX #30 tab nitrofurantoin 100 mg PO Q12H 7 Days #14 cap 12/08/19 01/22/20 01/21/20 Rx monohydrate/macrocrystals 100 mg capsule montelukast 10 mg tablet 10 mg PO DAILY #30 tab 01/08/20 01/22/20 01/21/20 Rx duloxetine 30 mg capsule,delayed 30 mg PO BID #60 cap 01/14/20 01/22/20 01/21/20 Rx release potassium chloride 20 mEq 20 meq PO DAILY #90 tab 01/14/20 01/22/20 01/21/20 Rx tablet,extended release topiramate 25 mg tablet 25 mg PO BID #60 tab 01/14/20 01/22/20 01/21/20 Rx Allergies Allergy/AdvReac Type Severity Reaction Status Date / Time cetirizine Allergy Unknown Verified 06/19/19 18:18 codeine Allergy Unknown Verified 06/19/19 18:18 hydromorphone [From Dilaudid] Allergy ADR-Confusion Verified 08/06/19 16:23 and mean naproxen Allergy Unknown Verified 06/19/19 18:18 Penicillins Allergy ALGY-Hives Verified 06/19/19 18:18 Sulfa (Sulfonamide Allergy Unknown Verified 06/19/19 18:18 Antibiotics) tramadol Allergy Unknown Verified 06/19/19 18:18 PFSH Acute PFSH: Medical History (Updated 01/22/20 @ 16:26 by Wilfredo Aponte MD) Asthma 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 COPD (chronic obstructive pulmonary disease) Diabetes GERD (gastroesophageal reflux disease) History of ME (myocardial infarction) Hyperlipidemia Hypertension PAD (peripheral artery disease) Post-herpetic polyneuropathy SVT (supraventricular tachycardia) Surgical History (Updated 01/22/20 @ 16:22 by Wilfredo Aponte MD) History of hysterectomy Hx of CABG S/P CABG x 3 Family History Other CAD (coronary artery disease) Cancer Hypertension Social History Smoking and tobacco status: never smoked Second hand smoke exposure: No Smoking risk assessment/counseling performed?: No Alcohol intake: never Desire information about alcohol rehabilitation?: No Counseling given: No Desire information about substance/drug rehabilitation?: No Counseling given: No Adopted: No Caregiver/support person: No Lives independently: Yes Household members: family Housing: House Marital status: / Number of children: 4 Current occupational status: retired History of recent travel: No Current gender identity: Female Vitals/I&O/Wt Last Vital Signs Temp 98.7 F 01/22/20 12:45 Pulse 120 H 01/22/20 16:03 Resp 22 H 01/22/20 16:03 BP 132/90 01/22/20 16:03 Pulse Ox 99 01/22/20 16:03 01/22/20 01/22/20 01/22/20 06:59 14:59 22:59 Intake Total 199.8 / 199.8 20.333 / 220.133 Balance 199.8 / 199.8 20.333 / 220.133 Weight last 48 hrs Weight 79.379 kg Physical Exam Const: COMMON NORMALS: no acute distress and patient oriented x3 GENERAL APPEARANCE: cooperative and comfortable HENMT: COMMON NORMALS: normocephalic HEAD & SCALP: normocephalic Eye: COMMON NORMALS: Equal, round and reactive pupils present, EOMs intact bilaterally and no papilledema GENERAL EYE: appearance normal, both eyes and all related structures PUPIL: Yes Equal, round and reactive pupils present DIRECT OPHTHALMOSCOPY: Yes no papilledema Neck/C-Spine: COMMON NORMALS: full ROM, no lymphadenopathy, no JVD and Thyroid normal THYROID: Thyroid normal Lymph: LYMPHATIC: no lymphadenopathy noted Resp: COMMON NORMALS: normal respiratory effort, No retractions, No use of accessory muscles and clear to auscultation bilaterally AUSCULTATION: clear to auscultation bilaterally Cardio: COMMON NORMALS: no JVD, S1 normal heart sound present, S2 normal heart sound present, No gallops present (Cardio), No clicks present (Cardio) and No murmurs present (Cardio) RATE: tachycardic RHYTHM: regular rhythm and abnormal rhythm HEART SOUNDS: S1 normal heart sound present and S2 normal heart sound present GI: COMMON NORMALS: Normal to inspection, nondistended, normoactive bowel sounds present, Soft to palpation, non-tender and No hepatosplenomegaly present PALPATION: Yes Soft to palpation and Yes No hepatosplenomegaly present Extremity: COMMON NORMALS: normal to inspection, full ROM and no pedal edema Neuro: COMMON NORMALS: patient oriented x3, CN's II-XII intact bilaterally, moves all extremities and no focal motor deficits Psych: COMMON NORMALS: mental status grossly normal, Normal thought process present and cooperative THOUGHT PROCESS: Normal thought process present Data : 01/22/20 13:50 01/22/20 13:50 A&P Assessment and plan (1) Atrial fibrillation with RVR: -Has a history of atrial fibrillation, was on verapamil and digoxin in the past, currently only on digoxin -Has a history of splenic rupture/hematoma, anticoagulation was temporarily withheld, not sure why was not reinstituted, no history of life-threatening bleeding, GI bleed, anemia, falls -Denies any chest pain, no acute exacerbation of shortness of breath, does have bilateral short lower extremity edema -In the ER was found to have A. fib with RVR, heart rates in the 120s to 130s, part put on a Cardizem drip Plan: -We will admit to cardiac stepdown unit -Continue Cardizem -Add amiodarone 400 twice daily -Add Eliquis 5 mg twice daily -Bilateral lower extremity edema, has a large left pleural effusion which is ch ronic for her, will switch to 40 mg of IV Lasix twice daily, fluid restrictions less than 1500 cc, PT OT -Continue to monitor EKGs, serial troponins, monitor telemetry monitoring -Monitor hemoglobin, monitor for bloody stools -Patient is DNR/DNI -Eliquis for DVT prophylaxis Status: Acute (2) CAD (coronary artery disease): Status: Acute (3) Asthma 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: Status: Chronic (4) Post-herpetic polyneuropathy: Status: Chronic (5) Hyperlipidemia: Status: Acute (6) Hypertension: Status: Chronic (7) COPD (chronic obstructive pulmonary disease): Status: Chronic (8) GERD (gastroesophageal reflux disease): Status: Acute (9) SVT (supraventricular tachycardia): Status: Acute (10) Diabetes: Status: Chronic (11) PAD (peripheral artery disease): Status: Acute (12) CHF (congestive heart failure): Status: Acute Attestations Medical Necessity Statement*: Patient requires hospitalization, outpatient with observation, for A. fib RVR, CHF exacerbation Coding Level of Care Code Acute Radiographer Cardiac Catheterization for Chg Fwd Diagnoses Atrial fibrillation with RVR I48.91 CAD (coronary artery disease) I25.10 Asthma 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 J45.909; Z79.51 Post-herpetic polyneuropathy B02.23 Hyperlipidemia E78.5 Hypertension I10 COPD (chronic obstructive pulmonary disease) J44.9 GERD (gastroesophageal reflux disease) K21.9 SVT (supraventricular tachycardia) I47.1 Diabetes E11.9 PAD (peripheral artery disease) I73.9 CHF (congestive heart failure) I50.9
[2020-01-22 16:12] LABS: Troponin 5 2HR 13.39 ng/L (0-10)
[2020-01-22 16:14] LABS: Troponin 5 2HR Delta -1.61 ABS# (0-10)
[2020-01-22 16:58] LABS: Estmated Average Glucose 126
[2020-01-22] MEDS: FUROsemide 10 mg/mL SDV 4mL 40 MG IVP (18:13)
[2020-01-22] MEDS: topiramate 25 mg Tablet PO (18:13)
[2020-01-22] MEDS: amiodarone 200 mg Tablet 400 MG PO (18:14)
[2020-01-22] MEDS: apixaban 5 mg Tablet PO (18:14)
[2020-01-22] MEDS: duloxetine 30 mg Capsule PO (18:14)
[2020-01-22 20:34] LABS: Troponin 5 6HR 16.34 ng/L (0-10)
[2020-01-22 20:46] LABS: Troponin 5 6HR Delta 1.34 ng/L (0-12)
[2020-01-22] MEDS: budesonide 0.5 mg/2 mL Neb INHALATION (21:20)
--- NOTE | 2020-01-22 23:08 | PC.NURSE ---
pt resting in bed, A&OX4, respirations even and unlabored, O2 at 2L NC, cardidem gtt infusing to RAC IV at 15, pt was c/o right side pain after breathing treatment, notified Dr Aburto, ordered toradol X1, not given at this time because pain has subsided, clwr, continue to monitor
[2020-01-23] VITALS (9 sets, daily range): BP systolic 90–146; BP diastolic 57–81; PULSE 78–115; RESP 16–26; TEMP 36.3–36.9; O2SAT 95–98
[2020-01-23 05:07] LABS: Basophils % 0.1 %; Eosinophils # 0.4 10^3/uL (0.0-0.8); Eosinophils % 5.2 %; Hematocrit 38.3 % (37.0-47.0); Hemoglobin 12.1 g/dL (11.5-15.3); Lymphocytes # 1.2 10^3/uL (0.8-4.8); Mean Corpuscular HGB Conc 31.6 g/dL (30.0-36.0); Mean Corpuscular Hemoglobin 29.1 pg (28.0-34.0); Mean Corpuscular Volume 92.1 fL (81-99); Mean Platelet Volume 11.3 fL (7.4-10.4); Monocytes # 1.1 10^3/uL (0.2-0.9); Monocytes % 13.6 %; Neutrophils # 5.49 10^3/uL (1.8-7.7); Neutrophils % 66.7 %; Nucleated Red Blood Cells % 0 %; Platelet Count 178 10^3/cmm (130-400); Red Blood Count 4.16 10^6/uL (4.1-5.3); Red Cell Distribution Width 13.2 % (12.1-15.1); White Blood Count 8.2 10^3/uL (4.0-10.0)
[2020-01-23 05:37] LABS: INR 1.31 (0.8-1.2)
[2020-01-23] MEDS: FUROsemide 10 mg/mL SDV 4mL 40 MG IVP ×2 (05:55→17:39)
[2020-01-23 05:57] LABS: Alanine Aminotransferase 7 U/L (0-33); Albumin Level 3.7 g/dL (3.5-5.2); Alkaline Phosphatase 94 IU/L (35-105); Anion Gap 14.4 (5-19); Aspartate Amino Transferase 12 U/L (0-32); Blood Urea Nitrogen 16 mg/dL (8-23); Calcium 8.6 mg/dL (8.5-10.5); Carbon Dioxide 23 mmol/L (22-29); Chloride 107 mmol/L (98-107); Globulin 3.1 g/dL (1.3-4.6); Glucose 113 mg/dL (65-115); Osmolality Calculated 289 mOsm/kg (285-295); Phosphorus 3.1 mg/dL (2.5-4.5); Potassium 3.4 mmol/L (3.5-5.1); Sodium 141 mmol/L (136-145); Total Bilirubin 0.5 mg/dL (0.15-1.2); Total Protein 6.8 g/dL (6.6-8.7)
[2020-01-23 06:09] LABS: Chol HDL Ratio 3.06 mg/dL (0.0-4.40); Cholesterol 150 mg/dL (0-200); HDL Cholesterol 49 mg/dL (60-100); LDL Cholesterol Calculated 86 mg/dL (50-129); LDL HDL Ratio 1.76 RATIO (0.00-3.22); Triglycerides 74 mg/dL (0-150)
[2020-01-23] MEDS: isosorbide mononitrate ER 30 mg Tablet PO (08:42)
[2020-01-23] MEDS: duloxetine 30 mg Capsule PO ×2 (08:42→17:39)
[2020-01-23] MEDS: potassium chloride ER 10 mEq Tablet 20 MEQ PO (08:42)
[2020-01-23] MEDS: metoprolol tartrate 25 mg Tablet PO ×2 (08:42→09:46)
[2020-01-23] MEDS: amiodarone 200 mg Tablet 400 MG PO ×2 (08:42→17:39)
[2020-01-23] MEDS: montelukast sodium 10 mg Tablet PO (08:42)
[2020-01-23] MEDS: clopidogrel 75 mg Tablet PO (08:42)
[2020-01-23] MEDS: magnesium lactate 84 mg Tablet PO (08:42)
[2020-01-23] MEDS: atorvastatin 40 mg Tablet 80 MG PO (08:43)
[2020-01-23] MEDS: topiramate 25 mg Tablet PO ×2 (08:43→17:38)
[2020-01-23] MEDS: apixaban 5 mg Tablet PO ×2 (08:56→17:38)
[2020-01-23] MEDS: budesonide 0.5 mg/2 mL Neb INHALATION ×2 (09:28→20:44)
--- NOTE | 2020-01-23 09:40 | PC.NURSE ---
DR. JACOBS ORDERED SECOND DOSE OF 25 MG OF METOPROLOL DUE TO PATIENT'S INCREASED HEART RATE.
--- NOTE | 2020-01-23 11:23 | PC.CHAP ---
Pastoral Care Encounter/Spiritual Assessment Type of Contact [] Declined shake table operator visit [] Patient/Family/Request visit [] Outpatient visit [] Follow-up visit [] Physician referral [] Code/Alert [x] Routine visit [] Staff referral [] Actively dying [] Patient sleeping [] Family support [] [] Out of room [] Palliative care [] [] Receiving care in room [] Pre-surgical visit [] Trauma [] Long length of stay [] ICU visit [] Other: Relational/Emotional Strength [x] Patient feels connected with others/family/visitors/staff [] Distress [] Loneliness/isolation [] Abandonment Spirituality of Patient [x] Person of Sandi [] Attends Buddhism of their Sandi [] Believes in Prayer [] Reads Bible or Denominational materials [x] There are Spiritual issues to be addressed Waist Presser Interventions [x] Prayer [x] Active listening [x] Non-anxious presence [x] Spiritual/emotional support [] Crisis/trauma care [x] Spiritual counseling [] Bereavement support [] Provided bereavement packet [] Provided Bible/devotional materials [] Provided toy/stuffed animal, coloring book to patient or family member [] Provided Communion [] Anointing/[place] [] Salvation [x] Completed spiritual assessment [] Other: Impact on Illness or Injury [] Angry [] Fearful [] Anxious [] Often cries [] Exhaustion [] Unable to work [] Unable to attend mandaeism [] Unable to walk/stand [] Unable to read [] Unable to drive [] Unable to eat/drink [] Unable to sleep [] Unable to be with family [] Patient intubated [x] Other: Summary Patient is a professed believer but does not currently attend jew fellowship. Patient expressed unsolicited details involving current conflicts her immediate family have with law enforcement. [employer] [place] was provided. Time spent with patient 15 minutes
--- NOTE | 2020-01-23 13:49 | PM.PN ---
Subjective Subjective: Interval history: Patient has no complaints this morning, states that she has been urinating a lot with Lasix, still is on the Cardizem drip, still in atrial fibrillation Vitals/I&O/Wt Last Vital Signs Temp 97.9 F 01/23/20 11:18 Pulse 79 01/23/20 11:18 Resp 22 H 01/23/20 11:18 BP 90/62 01/23/20 11:18 Pulse Ox 96 01/23/20 11:18 01/22/20 01/23/20 01/23/20 22:59 06:59 14:59 Intake Total 146.516 / 346.316 126.901 / 473.217 637.25 / 637.25 Output Total 950 / 950 500 / 1450 450 / 450 Balance -803.484 / -603.684 -373.099 / -976.783 187.25 / 187.25 Weight last 48 hrs Weight 79.379 kg Physical Exam Const: COMMON NORMALS: no acute distress and patient oriented x3 HENMT: COMMON NORMALS: normocephalic HEAD & SCALP: normocephalic Neck/C-Spine: COMMON NORMALS: no JVD Resp: COMMON NORMALS: normal respiratory effort, No retractions, No use of accessory muscles and clear to auscultation bilaterally AUSCULTATION: clear to auscultation bilaterally Cardio: COMMON NORMALS: no JVD, S1 normal heart sound present and S2 normal heart sound present RATE: tachycardic RHYTHM: abnormal rhythm HEART SOUNDS: S1 normal heart sound present and S2 normal heart sound present GI: COMMON NORMALS: Normal to inspection, nondistended, normoactive bowel sounds present, Soft to palpation, non-tender, No hepatosplenomegaly present, no masses and no bruits PALPATION: Yes Soft to palpation and Yes No hepatosplenomegaly present Extremity: COMMON NORMALS: capillary refill normal, no clubbing, cyanosis or edema, no calf tenderness and no pedal edema Neuro: COMMON NORMALS: patient oriented x3 Psych: COMMON NORMALS: mental status grossly normal Data : 01/23/20 04:00 01/23/20 04:00 A&P Assessment and plan (1) Atrial fibrillation with RVR: -Has a history of atrial fibrillation, was on verapamil and digoxin in the past, currently only on digoxin -Has a history of splenic rupture/hematoma, anticoagulation was temporarily withheld, not sure why was not reinstituted, no history of life-threatening bleeding, GI bleed, anemia, falls -Denies any chest pain, no acute exacerbation of shortness of breath, does have bilateral short lower extremity edema -In the ER was found to have A. fib with RVR, heart rates in the 120s to 130s, part put on a Cardizem drip -On Cardizem overnight Plan: -We will admit to cardiac stepdown unit -Stop Cardizem, start metoprolol 50 twice daily -Add amiodarone 400 twice daily -Add Eliquis 5 mg twice daily -Bilateral lower extremity edema, has a large left pleural effusion which is chronic for her, will switch to 40 mg of IV Lasix twice daily, fluid restrictions less than 1500 cc, PT OT -Continue to monitor EKGs, serial troponins, monitor telemetry monitoring -Monitor hemoglobin, monitor for bloody stools -Patient is DNR/DNI -Eliquis for DVT prophylaxis Status: Acute (2) CAD (coronary artery disease): Status: Acute (3) Asthma 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: Status: Chronic (4) Post-herpetic polyneuropathy: Status: Chronic (5) Hyperlipidemia: Status: Acute (6) Hypertension: Status: Chronic (7) COPD (chronic obstructive pulmonary disease): Status: Chronic (8) GERD (gastroesophageal reflux disease): Status: Acute (9) SVT (supraventricular tachycardia): Status: Acute (10) Diabetes: Status: Chronic (11) PAD (peripheral artery disease): Status: Acute (12) CHF (congestive heart failure): Status: Acute Attestations Medical Necessity Statement*: Patient requires hospitalization for A. fib with RVR, CHF exacerbation Coding Level of Care Code Acute Mold Mechanic for [facility] Fwd Diagnoses Atrial fibrillation with RVR I48.91 CAD (coronary artery disease) I25.10 Asthma 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 J45.909; Z79.51 Post-herpetic polyneuropathy B02.23 Hyperlipidemia E78.5 Hypertension I10 COPD (chronic obstructive pulmonary disease) J44.9 GERD (gastroesophageal reflux disease) K21.9 SVT (supraventricular tachycardia) I47.1 Diabetes E11.9 PAD (peripheral artery disease) I73.9 CHF (congestive heart failure) I50.9
--- NOTE | 2020-01-23 16:35 | USCV_ITS ---
Denia Price Age: 84 Gender: F : 1935 Exam Date: 01/23/2020 06:46 Ordering Phys: Wilfredo Aponte MD Technologist: Amanda Spencer Exam Location: [facility] [place] Indication: CHF CHEST PAIN BP: / HR: 84 Rhythm: Atrial fibrillation Technical Quality: Adequate MEASUREMENTS (Male / Female) Normal Values 2D ECHO LV Diastolic Diameter PLAX 2.9 cm 4.2 - 5.9 / 3.9 - 5.3 cm LV Systolic Diameter PLAX 2.4 cm LV Chamber Size 3.0 cm IVS Diastolic Thickness 0.9 cm 0.6 - 1.0 / 0.6 - 0.9 cm IVS Systolic Thickness 1.1 cm LVPW Diastolic Thickness 1.3 cm 0.6 - 1.0 / 0.6 - 0.9 cm LVPW Systolic Thickness 1.3 cm RV Chamber Size 2.3 cm LVOT Diameter 2.0 cm LV Ejection Fraction 2D Teich 40.5 % LV Ejection Fraction MOD 2C 34.8 % LV Ejection Fraction 2C AL 40.3 % LA Diameter 4.5 cm Aorta at Sinotubular Diameter 2.3 cm M-MODE LV Diastolic Diameter MM 4.4 cm 4.2 - 5.9 / 3.9 - 5.3 cm LV Systolic Diameter MM 3.0 cm LV Ejection Fraction MM Teich 58.6 % IVS Diastolic Thickness MM 1.2 cm 0.6 - 1.0 / 0.6 - 0.9 cm IVS Systolic Thickness MM 1.4 cm LVPW Diastolic Thickness MM 1.4 cm 0.6 - 1.0 / 0.6 - 0.9 cm LVPW Systolic Thickness MM 2.0 cm RV Diastolic Diameter MM 1.6 cm Aortic Annulus Diameter 2.5 cm LA Ao Ratio MM 1.8 DOPPLER AV Peak Velocity 151.0 cm/s LVOT Peak Velocity 90.0 cm/s AV Area Cont Eq vti 1.8 cm squared AV Area Cont Eq pk 1.9 cm squared MV Area PHT 6.9 cm squared MV E' Velocity 9.0 cm/s Mitral E to MV E' Ratio 14.9 Mitral E to LV E' Lateral Ratio 15.6 Mitral E to LV E' Septal Ratio 14.3 TR Peak Velocity 300.8 cm/s TR Peak Gradient 36.2 mmHg TR Mean Velocity 216.6 cm/s TR Mean Gradient 20.9 mmHg TR Velocity Time Integral 87.5 cm TV Peak E Velocity 61.0 cm/s Right Atrial Pressure 3.0 mmHg Pulmonary Artery Systolic Pressu 39.2 mmHg FINDINGS Left Ventricle Normal left ventricular cavity size. Mildly increased left ventricular wall thickness. Moderately decreased left ventricular systolic function. Left ventricular ejection fraction is estimated at 36 %. Moderate global hypokinesis. Abnormal septal motion consistent with conduction abnormality. Right Ventricle Normal right ventricular size and systolic function. Right ventricular systolic pressure 39.2 mmHg. Right Atrium Mildly increased right atrial size. Right atrial pressure estimated at 3 mm Hg. Left Atrium Mildly increased left atrial size. Mitral Valve Structurally normal mitral valve. No mitral valve stenosis. Trace mitral valve regurgitation. Aortic Valve Structurally normal trileaflet aortic valve. No aortic valve stenosis. Mild aortic valve regurgitation. Tricuspid Valve Structurally normal tricuspid valve. Trace tricuspid valve regurgitation. Pulmonic Valve Pulmonic valve not well visualized. Pericardium No pericardial effusion. Aorta Normal size aortic root and proximal ascending aorta. Normal sized inferior vena cava. CONCLUSIONS 1. Normal left ventricular cavity size. Mildly increased left ventricular wall thickness. Moderately decreased left ventricular systolic function. Left ventricular ejection fraction is estimated at 36 %. Moderate global hypokinesis. 2. Mild pulmonary hypertension with pulmonary artery pressure estimated at 39 mm Hg. 3. Mild aortic valve regurgitation. 4. No prior similar studies to compare. Savanna Davis MD (Electronically Signed) Final Date: 24 January 2020 19:52 S
[2020-01-23] MEDS: metoprolol tartrate 50 mg Tablet PO (17:38)
[2020-01-24] VITALS (8 sets, daily range): BP systolic 95–129; BP diastolic 61–90; PULSE 79–103; RESP 16–25; TEMP 36.4–36.8; O2SAT 93–96
[2020-01-24 04:13] LABS: Basophils % 0.4 %; Eosinophils # 0.5 10^3/uL (0.0-0.8); Eosinophils % 6.4 %; Hematocrit 37.6 % (37.0-47.0); Hemoglobin 11.6 g/dL (11.5-15.3); Lymphocytes # 1.7 10^3/uL (0.8-4.8); Lymphocytes % 20.1 %; Mean Corpuscular HGB Conc 30.9 g/dL (30.0-36.0); Mean Corpuscular Hemoglobin 28.3 pg (28.0-34.0); Mean Corpuscular Volume 91.7 fL (81-99); Mean Platelet Volume 11.3 fL (7.4-10.4); Monocytes # 1.2 10^3/uL (0.2-0.9); Monocytes % 14.4 %; Neutrophils % 58.3 %; Nucleated Red Blood Cells % 0 %; Platelet Count 220 10^3/cmm (130-400); Red Cell Distribution Width 13.4 % (12.1-15.1); White Blood Count 8.2 10^3/uL (4.0-10.0)
[2020-01-24 04:31] LABS: INR 1.53 (0.8-1.2)
[2020-01-24 04:48] LABS: Alanine Aminotransferase 6 U/L (0-33); Albumin Level 3.5 g/dL (3.5-5.2); Alkaline Phosphatase 87 IU/L (35-105); Anion Gap 13.9 (5-19); Aspartate Amino Transferase 10 U/L (0-32); Blood Urea Nitrogen 24 mg/dL (8-23); Calcium 8.5 mg/dL (8.5-10.5); Carbon Dioxide 26 mmol/L (22-29); Chloride 107 mmol/L (98-107); Globulin 3.1 g/dL (1.3-4.6); Glucose 125 mg/dL (65-115); Magnesium 2.1 mg/dL (1.7-2.3); Osmolality Calculated 294 mOsm/kg (285-295); Phosphorus 3.6 mg/dL (2.5-4.5); Potassium 3.9 mmol/L (3.5-5.1); Sodium 143 mmol/L (136-145); Total Bilirubin 0.3 mg/dL (0.15-1.2); Total Protein 6.6 g/dL (6.6-8.7)
[2020-01-24] MEDS: FUROsemide 10 mg/mL SDV 4mL 40 MG IVP (05:12)
[2020-01-24] MEDS: montelukast sodium 10 mg Tablet PO (08:58)
[2020-01-24] MEDS: clopidogrel 75 mg Tablet PO (08:58)
[2020-01-24] MEDS: apixaban 5 mg Tablet PO (08:58)
[2020-01-24] MEDS: atorvastatin 40 mg Tablet 80 MG PO (08:58)
[2020-01-24] MEDS: topiramate 25 mg Tablet PO (08:59)
[2020-01-24] MEDS: duloxetine 30 mg Capsule PO (08:59)
[2020-01-24] MEDS: potassium chloride ER 10 mEq Tablet 20 MEQ PO (09:00)
[2020-01-24] MEDS: metoprolol tartrate 50 mg Tablet PO (09:00)
--- NOTE | 2020-01-24 09:00 | PC.NURSE ---
Medication related Called via voalte phone regarding pt's BP is 107/81, pt takes Imdur 30 daily, Amiodarone 400 mg BID and Metoprolol 50 mg. Received telephone order back to decrease Amiodarone to 200 mg daily, hold the Imdur and continue metoprolol.
[2020-01-24] MEDS: magnesium lactate 84 mg Tablet PO (09:04)
[2020-01-24] MEDS: budesonide 0.5 mg/2 mL Neb INHALATION (09:11)
--- NOTE | 2020-01-24 10:00 | PC.RESP ---
PULMONARY REHAB INFORMATION SENT TO PATIENT.
[2020-01-24] MEDS: amiodarone 200 mg Tablet PO (10:35)
--- NOTE | 2020-01-24 12:08 | PC.CHAP ---
Pastoral Care Encounter/Spiritual Assessment Type of Contact [] Declined photography editor visit [] Patient/Family/Request visit [] Outpatient visit [] Follow-up visit [] Physician referral [] Code/Alert [xx] Routine visit [] Staff referral [] Actively dying [] Patient sleeping [] Family support [] [] Out of room [] Palliative care [] [] Receiving care in room [] Pre-surgical visit [] Trauma [] Long length of stay [] ICU visit [] Other: Relational/Emotional Strength [xx] Patient feels connected with others/family/visitors/staff [] Distress [] Loneliness/isolation [] Abandonment Spirituality of Patient [xx] Person of Sandi [xx] Attends Evangelical of their Sandi [xx] Believes in Prayer [] Reads Bible or Orthodoxy materials [] There are Spiritual issues to be addressed Customer Assistant Interventions [xx] Prayer [xx] Active listening [xx] Non-anxious presence [xx] Spiritual/emotional support [] Crisis/trauma care [] Spiritual counseling [] Bereavement support [] Provided bereavement packet [] Provided Bible/devotional materials [] Provided toy/stuffed animal, coloring book to patient or family member [] Provided Communion [] Anointing/[place] [] Salvation [xx] Completed spiritual assessment [] Other: Impact on Illness or Injury [] Angry [] Fearful [] Anxious [] Often cries [] Exhaustion [] Unable to work [] Unable to attend mormon [] Unable to walk/stand [] Unable to read [] Unable to drive [] Unable to eat/drink [] Unable to sleep [] Unable to be with family [] Patient intubated [xx] Other: Older person with limited mobility. Summary Pt lives with daughter. Great-granddaughter (teenager) has recently been located and will soon be moving in with grandmother and great-grandmother (patient) as child's mother is . Patient is very anxious to have them living together so they can take care of each other and get to know each other better as there has been some relational distancing for several years. Patient wanted to discuss these arrangements in some detail so Customer Assistant listened carefully and provided encouragement and hope to patient. Time spent with patient 12 minutes. Customer Assistantro Mays
--- NOTE | 2020-01-24 14:37 | PM.DCS ---
Discharge Providers Date of Admission: 01/23/20 14:38 Date of Discharge: January 24, 2020 Attending Provider at Admission: Wilfredo Aponte MD Attending Provider at Discharge: Wilfredo Aponte MD Primary Care Provider: JIL Izaguirre Diagnoses at Discharge Discharge Diagnosis (1) Atrial fibrillation with RVR: Status: Acute (2) CAD (coronary artery disease): Status: Acute (3) Asthma 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: Status: Chronic (4) Post-herpetic polyneuropathy: Status: Chronic (5) Hyperlipidemia: Status: Acute (6) Hypertension: Status: Chronic (7) COPD (chronic obstructive pulmonary disease): Status: Chronic (8) GERD (gastroesophageal reflux disease): Status: Acute (9) SVT (supraventricular tachycardia): Status: Acute (10) Diabetes: Status: Chronic (11) PAD (peripheral artery disease): Status: Acute (12) CHF (congestive heart failure): Status: Acute Reason for Visit Reason for Visit: abnormal heartrate Hospital Course Discharge Summary: Denia Price is a 84 year old female with a past medical history of CAD, three-vessel CABG, CHF, history of atrial fibrillation on verapamil, not on anticoagulation due to history of a splenic hematoma, not sure why she is not on anticoagulation currently, hypertension, hyperlipidemia, GERD, COPD, history of chronic left pleural effusion, history of depression, bilateral lower extremity edema, who presents to [facility] from her primary care physician's office due to concerns for atrial fibrillation. Patient was admitted to [facility] for atrial fibrillation with RVR, admitted to the cardiac stepdown unit on a Cardizem drip, patient was eventually weaned off the Cardizem drip, onto metoprolol 50 twice daily, and amiodarone 400 twice daily, here she remained in atrial fibrillation, but rate controlled heart rates 100-110's, ambulating without significant symptomatology. I have discharged the patient on amiodarone 200 mg daily, metoprolol 50 twice daily, Eliquis 5 mg twice daily, with a follow with primary care provider in 1 week. Patient has a history of atrial fibrillation, was only on verapamil as outpatient, not sure exactly why she was not on anticoagulation, patient was unsure why not, denies a history of GI bleeds, denies a history of intracranial hemorrhage, denies any significant history of anemia, denies any history of blood transfusion. I advised patient that if she were to feel lightheaded, or dizzy please come back to the emergency room. Patient was advised that she would have bloody or black stools please come back to emergency room. Follow-up with cardiology 1 week. Physical Exam Const: COMMON NORMALS: no acute distress and patient oriented x3 HENMT: COMMON NORMALS: normocephalic HEAD & SCALP: normocephalic Neck/C-Spine: COMMON NORMALS: no JVD Resp: COMMON NORMALS: normal respiratory effort, No retractions, No use of accessory muscles and clear to auscultation bilaterally AUSCULTATION: clear to auscultation bilaterally Cardio: COMMON NORMALS: no JVD, regular rhythm, S1 normal heart sound present and S2 normal heart sound present RHYTHM: regular rhythm and abnormal rhythm HEART SOUNDS: S1 normal heart sound present and S2 normal heart sound present GI: COMMON NORMALS: Normal to inspection, nondistended, normoactive bowel sounds present, Soft to palpation, non-tender, No hepatosplenomegaly present, no masses and no bruits PALPATION: Yes Soft to palpation and Yes No hepatosplenomegaly present Extremity: COMMON NORMALS: capillary refill normal, no clubbing, cyanosis or edema, no calf tenderness and no pedal edema Neuro: COMMON NORMALS: patient oriented x3 Psych: COMMON NORMALS: mental status grossly normal Discharge Data Data Completed and Pending: Completed Studies During Hospitalization Category Date Time Status XR chest 1V anitha ble [id number] Urgent Exams 01/22/20 12:35 Completed Pending at discharge Category Date Time Status Complete Blood Co unt w/Auto AM LABS Lab 01/25/20 04:00 Ordered Comprehensive Met abolic Panel AM LA BS Lab 01/25/20 04:00 Ordered Magnesium AM LABS Lab 01/25/20 04:00 Ordered Phosphorus AM LAB S Lab 01/25/20 04:00 Ordered Prothrombin Time INR AM LABS Lab 01/25/20 04:00 Ordered CV echo complete* [id number] Routine Ultrasound 01/23/20 16:35 Taken Labs from last 24 hours 01/24/20 01/24/20 01/24/20 03:23 03:23 03:23 WBC 8.2 RBC 4.10 Hgb 11.6 Hct 37.6 MCV 91.7 MCH 28.3 MCHC 30.9 RDW 13.4 Plt Count 220 MPV 11.3 H Neut % (Auto) 58.3 Lymph % (Auto) 20.1 Riley % (Auto) 14.4 Eos % (Auto) 6.4 Baso % (Auto) 0.4 Neut # (Auto) 4.80 Lymph # (Auto) 1.7 Riley # (Auto) 1.2 H Eos # (Auto) 0.5 Baso # (Auto) 0.0 Nucleated RBC % (a uto) 0 Nucleated RBCs # 0.0 PT 18.90 H INR 1.53 H Sodium 143 Potassium 3.9 Chloride 107 Carbon Dioxide 26 Anion Gap 13.9 BUN 24 H Creatinine 1.1 H GFR Calculation Not Reportable Glucose 125 H Calculated Osmolal ity 294 Calcium 8.5 Phosphorus 3.6 Magnesium 2.1 Total Bilirubin 0.3 AST 10 ALT 6 Alkaline Phosphata se 87 Total Protein 6.6 Albumin 3.5 Globulin 3.1 Vitals: Last Vital Signs Temp 97.5 F L 01/24/20 11:37 Pulse 103 H 01/24/20 11:37 Resp 19 H 01/24/20 11:37 BP 114/85 01/24/20 11:37 Pulse Ox 96 01/24/20 11:37 Discharge Plan Discharge Patient Disposition: Home Condition: Stable Prescriptions: New Pacerone 200 mg Tablet 200 mg PO DAILY 30 Days Qty: 30 RF: 0 metoprolol tartrate 50 mg Tablet 50 mg PO BID 30 Days Qty: 60 RF: 0 Eliquis 5 mg Tablet 5 mg PO BID 30 Days Qty: 60 RF: 0 Continued Lidoderm 5 % adhesive patch,medicated 1 patch TOPICAL DAILY Qty: 30 RF: 2 nitroglycerin [Nitrostat] 0.4 mg tablet, sublingual 0.4 mg SUBLINGUAL Q5M PRN (Reason: CHEST PAINS) RF: 0 Perforomist 20 mcg/2 mL solution for nebulization 2 ml INHALATION BID RF: 0 budesonide [Pulmicort] 0.5 mg/2 mL suspension for nebulization 0.5 mg INHALATION BID RF: 0 rosuvastatin 40 mg tablet 40 mg PO DAILY Qty: 90 RF: 3 clopidogrel 75 mg tablet 75 mg PO DAILY Qty: 90 RF: 3 verapamil 240 mg capsule,ext rel. pellets 24 hr 240 mg PO DAILY Qty: 90 RF: 3 isosorbide mononitrate 30 mg tablet extended release 24 hr 30 mg PO DAILY Qty: 90 RF: 3 magnesium L-lactate [Magtab] 84 mg tablet extended release 84 mg PO DAILY Qty: 30 RF: 5 famotidine 40 mg tablet See Rx Instructions .ROUTE .COMPLEX Qty: 30 RF: 2 montelukast [Singulair] 10 mg tablet 10 mg PO DAILY Qty: 30 RF: 2 duloxetine [Cymbalta] 30 mg capsule,delayed release(DR/EC) 30 mg PO BID Qty: 60 RF: 2 topiramate 25 mg tablet 25 mg PO BID Qty: 60 RF: 2 potassium chloride 20 mEq tablet extended release 20 meq PO DAILY Qty: 90 RF: 0 Changed furosemide 40 mg tablet 40 mg PO DAILY Qty: 180 RF: 3 Discontinued nitrofurantoin monohyd/m-cryst [Macrobid] 100 mg capsule 100 mg PO Q12H 7 Days Qty: 14 RF: 0 Discharge Orders: Discharge Order (Routine); Ordered 01/24/20 Ordered By: Wilfredo Aponte Other Ambulatory Orders: Complete Blood Count w/Auto (Routine) Timeframe: 1 Week Location: Determined by Patient Ordered By: Wilfredo Aponte Comprehensive Metabolic Panel (Routine) Timeframe: 1 Week Facility: [facility] - Location: Lab - Main Lab Ordered By: Wilfredo Aponte Referrals: Watson Vargas MD [Physician] - 4-7 days (You have a hospital follow up with Gypsy Ortiz on Monday, January 30, at 10:30am. If you have any questions or concerns please call the office. ) Discharge Diet: Cardiac Discharge Activity: Resume usual activity Patient Instructions: Metoprolol (By mouth), Amiodarone (By mouth), Apixaban (By mouth), Coronary Artery Disease (DC), Atrial Fibrillation (DC), CHF Stoplight Discharge Attestations Time Spent in Discharge Care*: less than 30 min Quality Metrics Clinical Quality Measures During this hospital stay, did patient experience: None Coding Level of Care Code Acute Clerk Of [address] [facility] for g Fwd Diagnoses Atrial fibrillation with RVR I48.91 CAD (coronary artery disease) I25.10 Asthma 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 J45.909; Z79.51 Post-herpetic polyneuropathy B02.23 Hyperlipidemia E78.5 Hypertension I10 COPD (chronic obstructive pulmonary disease) J44.9 GERD (gastroesophageal reflux disease) K21.9 SVT (supraventricular tachycardia) I47.1 Diabetes E11.9 PAD (peripheral artery disease) I73.9 CHF (congestive heart failure) I50.9
--- NOTE | 2020-01-24 17:30 | PC.NURSE ---
Discharge meds Called pt via her contact #. Informed her that the doctor has new changes to her continued home medications. Pt preffered me to discuss it to her dgtr Lilliana. Talked to Lilliana via phone and informed her that Verapamil has been stopped and Imdur has been decrease from 30 mg to 15 mg daily. Instructed dgtr to look at her discharge med list that was given and marked the changes mentioned. Dgtr verbalizes she found the medication names and is aware of the changes.
== END 2020-01-24 16:45 | disposition home or self-care (01) | DRG 309 ==
LOC: ER 12:51 → CSU 16:04
PROVIDERS: Emergency Medicine; Physician Assistant; Admitting Provider Family Medicine; PCP Nurse Practitioner; Visit Provider Family Medicine
DX: I48.91 Unspecified atrial fibrillation (principal); B02.23 Postherpetic polyneuropathy; I50.22 Chronic systolic (congestive) heart failure; I25.10 Atherosclerotic heart disease of native coronary artery without angina pectoris; Z95.1 Presence of aortocoronary bypass graft; I11.0 Hypertensive heart disease with heart failure; E78.5 Hyperlipidemia, unspecified; K21.9 Gastro-esophageal reflux disease without esophagitis; F32.9 Major depressive disorder, single episode, unspecified; J44.9 Chronic obstructive pulmonary disease, unspecified; Z79.51 Long term (current) use of inhaled steroids; E11.51 Type 2 diabetes mellitus with diabetic peripheral angiopathy without gangrene; I47.1 Supraventricular tachycardia; Z79.02 Long term (current) use of antithrombotics/antiplatelets
CPT/HCPCS: 12345; 36415; 71045; 80053; 80061; 81003; 83036; 83735; 83880; 84100; 84443; 84484; 85025; 85610; 93005; 93306; 94640; 94664; 96375; 97116; 97161; 97165; 99284; G0378; J1940; J3490; J7040; J7626

== ENCOUNTER 2020-01-28 20:40 | Observation (INO) | payer MEDICARE, SELFPAY ==
[2020-01-28] VITALS (26 sets, daily range): BP systolic 107–157; BP diastolic 50–88; PULSE 47–74; RESP 14–30; TEMP 36.3; O2SAT 65–98; BMI 30.2
--- NOTE | 2020-01-28 20:59 | ECG_ITS ---
[facility] Test Date: 2020-01-28 Pat Name: Denia Price Department: Room: Gender: Female Stock Associate: : 1935 Requested By: Angeles Vee Order Number: [id number] Yulia MD: Yesenia Smith M.D. Measurements Intervals [place] Rate: 48 P: NV: -1 QRS: 29 QRSD: 136 T: 58 QT: 545 QTc: 489 Interpretive Statements ATRIAL FIBRILLATION WITH SLOW VENTRICULAR RESPONSE INTRAVENTRICULAR CONDUCTION DELAY [130+ ms QRS DURATION] ANTEROSEPTAL MYOCARDIAL INFARCTION , OF INDETERMINATE AGE [40+ ms Q WAVE IN V1-V4] Compared to ECG 01/22/2020 15:04:52 Intraventricular conduction delay now present Myocardial infarct finding now present Left bundle-branch block no longer present Electronically Signed On 01-29-2020 18:49:59 CDT by Yesenia Smith M.D. [id number]
[2020-01-28] MEDS: atropine 0.1 mg/mL Syr 10 mL 1 MG IVP (21:20)
[2020-01-28 21:34] LABS: Basophils # 0.1 10^3/uL (0.0-0.1); Basophils % 0.8 %; Eosinophils # 0.1 10^3/uL (0.0-0.8); Hematocrit 40.8 % (37.0-47.0); Hemoglobin 12.6 g/dL (11.5-15.3); Lymphocytes # 1.9 10^3/uL (0.8-4.8); Lymphocytes % 13.3 %; Mean Corpuscular HGB Conc 30.9 g/dL (30.0-36.0); Mean Corpuscular Volume 93.8 fL (81-99); Mean Platelet Volume 10.6 fL (7.4-10.4); Monocytes % 6.8 %; Neutrophils # 10.32 10^3/uL (1.8-7.7); Neutrophils % 72.5 %; Nucleated Red Blood Cells % 0 %; Platelet Count 271 10^3/cmm (130-400); Red Blood Count 4.35 10^6/uL (4.1-5.3); Red Cell Distribution Width 13.2 % (12.1-15.1); White Blood Count 14.2 10^3/uL (4.0-10.0)
--- NOTE | 2020-01-28 21:46 | ED_ITS ---
HPI - Weakness General: Chief complaint: Weakness Stated complaint: WEAKNESS Time Seen by Provider: 01/28/20 20:49 Source: patient Mode of arrival: ambulatory Limitations: no limitations History of Present Illness: HPI Narrative: Mrs. Mercer is a very nice 84-year-old female who comes in complaining of generalized weakness, shortness of breath since awakening from a nap this afternoon. Patient states that all day today she is felt tired and slept more than normal. She denies any chest pain but does get short of breath when she exerts herself. She denies cough, fever, nausea or vomiting. Patient states that she is had some diarrhea for several days now but denies any blood in her stools or black tarry stools. This been states that when she woke up she just felt profoundly weak and all the symptoms she fell earlier today were much worse than before. Of note the patient was recently in the hospital for A. fib with RVR and had medication changes in which she stopped her verapamil but is taking Pacerone and metoprolol both of which are new prescriptions. Patient arrives here bradycardic in the 30-40 range but with a stable blood pressure. Associated symptoms: Denies chest pain, chills, confusion, melena, diaphoresis, dysuria, easy bruising, fever(s), headache(s), nausea, syncope or vomiting Review of Systems Const: Denies: fever(s), chills, body aches, fatigue, malaise or diaphoresis Eyes: Denies: change in vision, blurry vision, photophobia, eye discomfort, eye discharge or eye redness ENMT: Denies: throat pain, odynophagia, hoarseness, swelling of lips/tongue, ear or mastoid pain, ear discharge, change in hearing or nasal discharge Card: Denies: chest pain, palpitations, irregular heart rhythm, edema, syncope, pre-syncope, dyspnea on exertion or orthopnea Resp: Reports: dyspnea; Denies: productive cough, non-productive cough, wheezing, hemoptysis or chest congestion GI: Denies: abdominal pain, nausea, vomiting, hematemesis, coffee ground emesis, heartburn, diarrhea, constipation, GI cramping, hematochezia or melena : Denies: flank pain, dysuria, urinary frequency, urinary urgency or hematuria Musc: Denies: neck pain, back pain, extremity pain, extremity swelling, joint pain, joint swelling, joint redness, joint warmth or joint stiffness Skin/Breast: Denies: rash, pruritus, erythema or skin tenderness Neuro: Denies: headache(s), numbness in extremities, weakness in extremities, sensory changes, lack of coordination, difficulty walking, dizziness, vertigo, confusion, Slurred speech present or seizure-like activity Shay/Lymph: Denies: easy bruising, easy bleeding, petechiae, purpura or enlarged lymph nodes All/Imm: Denies: urticaria, throat swelling, tongue swelling, facial swelling or acute wheezing PFSH ED PFSH: Medical History Asthma 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 COPD (chronic obstructive pulmonary disease) Diabetes GERD (gastroesophageal reflux disease) History of [place] (myocardial infarction) Hyperlipidemia Hypertension PAD (peripheral artery disease) Post-herpetic polyneuropathy SVT (supraventricular tachycardia) Surgical History History of hysterectomy Hx of CABG S/P CABG x 3 Family History Other CAD (coronary artery disease) Cancer Hypertension Social History Smoking and tobacco status: never smoked Second hand smoke exposure: No Smoking risk assessment/counseling performed?: No Alcohol intake: never Desire information about alcohol rehabilitation?: No Counseling given: No Desire information about substance/drug rehabilitation?: No Counseling given: No Adopted: No Caregiver/support person: No Lives independently: Yes Household members: family Housing: House Marital status: / Number of children: 4 Current occupational status: retired History of recent travel: No Current gender identity: Female Physical Exam Const: COMMON NORMALS: no acute distress, patient oriented x3, no limitations, healthy appearing and well nourished GENERAL APPEARANCE: cooperative, well kempt and well developed HENMT: COMMON NORMALS: normocephalic, atraumatic, external ears normal, EAC's normal and Normal external nose present HEAD & SCALP: normal to inspection, normocephalic and atraumatic FACE & SINUS: normal facial exam and face symmetric NOSE: Normal external nose present and Normal nares present EXTERNAL EAR: Yes external ears normal EXTERNAL AUDITORY CANAL: EAC's normal MOUTH: Normal oral and palatal mucosa present, lip normal and tongue normal Eye: COMMON NORMALS: Equal, round and reactive pupils present and conjunctivae normal GENERAL EYE: appearance normal, both eyes and all related structures ALIGNMENT: Yes alignment normal PERIORBITAL: periorbital findings normal EYELID: eyelids normal CONJUNCTIVA: Yes conjunctivae normal SCLERA: sclerae normal PUPIL: Yes Equal, round and reactive pupils present Neck/C-Spine: COMMON NORMALS: full ROM, no lymphadenopathy, supple, no meningeal signs and no JVD GENERAL: Yes normal visual inspection and Yes trachea midline Chest: COMMONS NORMALS: normal inspection of the chest and normal palpation of entire chest wall Resp: COMMON NORMALS: normal respiratory effort, No retractions, No use of accessory muscles and clear to auscultation bilaterally EFFORT & INSPECTION: Yes able to speak in complete sentences and Yes symmetric chest movement AUSCULTATION: clear to auscultation bilaterally, no crackles, no rales, no rhonchi and no wheezes Cardio: COMMON NORMALS: no JVD, regular rhythm, S1 normal heart sound present and S2 normal heart sound present RATE: bradycardic RHYTHM: regular rhythm HEART SOUNDS: S1 normal heart sound present, S2 normal heart sound present, no click, no gallops, no murmurs, no rubs and abnormal split S2 GI: COMMON NORMALS: Soft to palpation and No hepatosplenomegaly present PALPATION: Yes Soft to palpation, No Tenderness to palpation present (GI), No Guarding due to palpation present (GI), No Rigid due to palpation, Yes No hepatosplenomegaly present, No Hernia present, No Palpable mass present and No Pulsatile mass present : COMMON NORMALS: Yes no CVA tenderness BLADDER/KIDNEY EXAM: Yes no CVA tenderness EXTERNAL FEMALE EXAM: No Hernia present Back/Pelvis: COMMON NORMALS: no CVA tenderness, thoracic and lumbar spine normal to inspection, no thoracic nor lumbar tenderness and thoraco-lumbar ROM normal Extremity: COMMON NORMALS: normal to inspection, full ROM, capillary refill normal, no joint enlargement, no clubbing, cyanosis or edema and no calf tenderness Neuro: COMMON NORMALS: patient oriented x3, CN's II-XII intact bilaterally, moves all extremities, no focal motor deficits and no sensory deficits noted MENINGEAL SIGNS: Yes no meningeal signs SPEECH: speech normal Psych: COMMON NORMALS: mental status grossly normal, Normal thought process present, cooperative, normal affect, speech normal and activity/motor behavior normal APPEARANCE: Yes well kempt SPEECH: Yes normal speech THOUGHT PROCESS: Normal thought process present Skin: COMMON NORMALS: no rashes or lesions noted, turgor normal, no jaundice, no petechiae and no mottling GENERAL SKIN EXAM: no rashes or lesions noted and turgor normal Course Vital Signs: Vital signs: Vital Signs Temperature 97.4 F L 01/28/20 20:42 Pulse Rate 70 01/28/20 22:05 Respiratory Rate 19 H 01/28/20 22:05 Blood Pressure 130/80 01/28/20 22:05 Pulse Oximetry 98 01/28/20 22:05 MDM - Weakness MDM Narrative: Medical decision making narrative: Patient was recently mated to the hospital and got aggressive diuresis along with Pacerone and metoprolol added. Believe likely this is a medication effect. She has responded to 0.5 of atropine and for over an hour and a half has remained a heart rate in the 60s. Blood pressure is now stable as she had some hypotensive episodes when she first arrived. Dr. Myers is available should the patient need any type of cardiac intervention but at this time will admit to the stepdown unit and Dr. Regan will admit. Patient's care was reviewed with him and he will see the patient. Lab Data: Labs: Lab Results 01/28/20 01/28/20 01/28/20 Range/Units 21:26 21:26 21:26 WBC 14.2 H (4.0-10.0) 10^3/ uL RBC 4.35 (4.1-5.3) 10^6/u L Hgb 12.6 (11.5-15.3) g/dL Hct 40.8 (37.0-47.0) % MCV 93.8 (81-99) fL MCH 29.0 (28.0-34.0) pg MCHC 30.9 (30.0-36.0) g/dL RDW 13.2 (12.1-15.1) % Plt Count 271 (130-400) 10^3/c mm MPV 10.6 H (7.4-10.4) fL Neut % (Auto) 72.5 % Lymph % (Auto) 13.3 % Johnston % (Auto) 6.8 % Eos % (Auto) 1.0 % Baso % (Auto) 0.8 % Neut # (Auto) 10.32 H (1.8-7.7) 10^3/u L Lymph # (Auto) 1.9 (0.8-4.8) 10^3/u L Johnston # (Auto) 1.0 H (0.2-0.9) 10^3/u L Eos # (Auto) 0.1 (0.0-0.8) 10^3/u L Baso # (Auto) 0.1 (0.0-0.1) 10^3/u L Nucleated RBC % (a uto) 0 % Nucleated RBCs # 0.0 /100WBC PT 22.30 H (12.1-14.9) SECO NDS INR 1.89 H (0.8-1.2) Sodium 137 (136-145) mmol/L Potassium 5.8 H (3.5-5.1) mmol/L Chloride 103 (98-107) mmol/L Carbon Dioxide 22 (22-29) mmol/L Anion Gap 17.8 (5-19) BUN 24 H (8-23) mg/dL Creatinine 2.3 H (0.5-0.9) mg/dL GFR Calculation Not Reportable Glucose 155 H (65-115) mg/dL Calculated Osmolal ity 284 L (285-295) mOsm/k g Calcium 8.8 (8.5-10.5) mg/dL Magnesium 2.4 H (1.7-2.3) mg/dL Total Bilirubin 0.4 (0.15-1.2) mg/dL AST 30 (0-32) U/L ALT 20 (0-33) U/L Alkaline Phosphata se 137 H (35-105) IU/L Creatine Kinase 35 (26-192) U/L Troponin T Baselin e (0-10) ng/L NT-Pro-B Natriuret Pep 3630 H (0-450) pg/mL Total Protein 6.8 (6.6-8.7) g/dL Albumin 3.9 (3.5-5.2) g/dL Globulin 2.9 (1.3-4.6) g/dL Free T4 1.85 H (0.82-1.77) ng/d L 01/28/20 Range/Units 21:26 WBC (4.0-10.0) 10^3/ uL RBC (4.1-5.3) 10^6/u L Hgb (11.5-15.3) g/dL Hct (37.0-47.0) % MCV (81-99) fL MCH (28.0-34.0) pg MCHC (30.0-36.0) g/dL RDW (12.1-15.1) % Plt Count (130-400) 10^3/c mm MPV (7.4-10.4) fL Neut % (Auto) % Lymph % (Auto) % Johnston % (Auto) % Eos % (Auto) % Baso % (Auto) % Neut # (Auto) (1.8-7.7) 10^3/u L Lymph # (Auto) (0.8-4.8) 10^3/u L Johnston # (Auto) (0.2-0.9) 10^3/u L Eos # (Auto) (0.0-0.8) 10^3/u L Baso # (Auto) (0.0-0.1) 10^3/u L Nucleated RBC % (a uto) % Nucleated RBCs # /100WBC PT (12.1-14.9) SECO NDS INR (0.8-1.2) Sodium (136-145) mmol/L Potassium (3.5-5.1) mmol/L Chloride (98-107) mmol/L Carbon Dioxide (22-29) mmol/L Anion Gap (5-19) BUN (8-23) mg/dL Creatinine (0.5-0.9) mg/dL GFR Calculation Glucose (65-115) mg/dL Calculated Osmolal ity (285-295) mOsm/k g Calcium (8.5-10.5) mg/dL Magnesium (1.7-2.3) mg/dL Total Bilirubin (0.15-1.2) mg/dL AST (0-32) U/L ALT (0-33) U/L Alkaline Phosphata se (35-105) IU/L Creatine Kinase (26-192) U/L Troponin T Baselin e 21 H (0-10) ng/L NT-Pro-B Natriuret Pep (0-450) pg/mL Total Protein (6.6-8.7) g/dL Albumin (3.5-5.2) g/dL Globulin (1.3-4.6) g/dL Free T4 (0.82-1.77) ng/d L EKG Data^: EKG 1: Attestation: I personally reviewed and interpreted this EKG as follows: EKG interpretation date: 01/28/20 EKG interpretation time: 20:58 Interpretation: Atrial fibrillation with slow ventricular response, left bundle branch block, nonspecific ST-T wave changes. Left bundle branch block is old, atrial fibrillation is old slow ventricular response new is a new finding. Prolonged QTC. Discharge Plan Discharge Patient Disposition: Placed in Observation Clinical Impression: Bradycardia, Generalized weakness, Dyspnea on minimal exertion Condition: Stable Referrals: Nicol Hopkins, [employer] [Primary Care Provider] - Coding Level of Care Code ED Marketing Planning Manager for Chg Fwd Exam Comprehensive
[2020-01-28 21:54] LABS: INR 1.89 (0.8-1.2)
[2020-01-28 22:03] LABS: Troponin(5th) Baseline 21 ng/L (0-10)
--- NOTE | 2020-01-28 22:09 | PC.NURSE ---
PATIENT CLEANED AND REPOSITIONED FOR COMFORT BY NURSE
[2020-01-28 22:14] LABS: Alanine Aminotransferase 20 U/L (0-33); Albumin Level 3.9 g/dL (3.5-5.2); Alkaline Phosphatase 137 IU/L (35-105); Anion Gap 17.8 (5-19); Aspartate Amino Transferase 30 U/L (0-32); Blood Urea Nitrogen 24 mg/dL (8-23); Calcium 8.8 mg/dL (8.5-10.5); Carbon Dioxide 22 mmol/L (22-29); Chloride 103 mmol/L (98-107); Creatine Phosphokinase 35 U/L (26-192); Free T4 Free Thyroxine 1.85 ng/dL (0.82-1.77); Globulin 2.9 g/dL (1.3-4.6); Glucose 155 mg/dL (65-115); Magnesium 2.4 mg/dL (1.7-2.3); NT Pro B Type Natriuretic Pept 3630 pg/mL (0-450); Osmolality Calculated 284 mOsm/kg (285-295); Potassium 5.8 mmol/L (3.5-5.1); Slide Review Slide Review Perform; Sodium 137 mmol/L (136-145); Total Bilirubin 0.4 mg/dL (0.15-1.2); Total Protein 6.8 g/dL (6.6-8.7)
--- NOTE | 2020-01-28 22:23 | XRR_ITS ---
PROCEDURE INFORMATION: Exam: XR Chest, 1 View Exam date and time: 01/28/2020 10:31 PM Age: 84 years old Clinical indication: Prior surgery; Surgery date: 6+ months; Surgery type: Cabg; Patient HX: C/O shortness of breath and weakness TECHNIQUE: Imaging protocol: XR of the chest Views: 1 view. COMPARISON: CR XR chest 1V portable [id number] 01/22/2020 1:18 PM FINDINGS: Lungs: Alveolar airspace consolidation within the left lower lobe. Moderate pleural effusion. Pleural space: See Lungs finding. Heart/Mediastinum: cardiac silhouette is enlarged. Prior sternotomy. Vasculature: Numerous vascular stents on the left greater than right including the axillary subclavian and innominate regions Bones/joints: See Heart/Mediastinum finding. XR/XR chest 1V portable [id number] IMPRESSION: Alveolar airspace consolidation within the left lower lobe. Moderate pleural effusion. Subtle airspace disease right lung base. Small subpulmonic effusion.
[2020-01-28] MEDS: sodium chloride 0.9% 1,000 ML 100 ML IV (23:18)
--- NOTE | 2020-01-28 23:20 | P.HP_ITS ---
Providers/Chief Complaint Primary Care Provider: SEEMA IzaguirreC Chief Complaint: WEAKNESS History of Present Illness Denia Price is a 84 year old female who presented to the hospital with complaints of weakness. She reports it is only been going on today. She has felt some shortness of breath with activity. She has had decreased p.o. intake. She has been taking her medicine as prescribed. She has had no fever, di zziness, cough, exposure to COVID or personal history of COVID. She has had no vomiting or diarrhea. She may have received some antibiotics lately for UTI but this is not clear in her EMR that I can access and patient cannot remember the name of the medication received. She was recently discharged from the hospital on January 23, secondary to atrial fibrillation with rapid ventricular rate. At that time she was prescribed amiodarone, a new medication along with metoprolol 50 mg twice daily and new medication. Her Lasix dose was changed to 40 mg daily. When she arrived to the emergency department heart rate was significantly low and she received a dose of atropine. Review of Systems General: Reports: 10 or more systems reviewed and unremarkable except in HPI and below Const: Reports: fatigue; Denies: fever(s) or chills Eyes: Denies: change in vision ENMT: Denies: throat pain Card: Denies: chest pain Resp: Reports: dyspnea; Denies: productive cough GI: Denies: abdominal pain, nausea or vomiting : Denies: flank pain Musc: Denies: neck pain Skin/Breast: Denies: rash Neuro: Denies: headache(s) Psych: Denies: anxiety Endo: Denies: polyuria Shay/Lymph: Denies: easy bruising All/Imm: Denies: urticaria Medications/Allergies Home Medications Medication Instructions Recorded Confirmed Last Taken Type budesonide 0.5 mg/2 mL suspension 0.5 mg INHALATION BID 07/03/19 01/28/20 01/27/20 History for nebulization formoterol fumarate 20 mcg/2 mL 2 ml INHALATION BID 07/03/19 01/28/20 01/27/20 History solution for nebulization nitroglycerin 0.4 mg sublingual 0.4 mg SUBLINGUAL Q5M PRN 07/03/19 01/28/20 Unknown History tablet lidocaine 5 % topical patch 1 patch TOPICAL DAILY #30 each 08/06/19 01/28/20 Unknown Rx clopidogrel 75 mg tablet 75 mg PO DAILY #90 tab 08/28/19 01/28/20 01/28/20 Rx rosuvastatin 40 mg tablet 40 mg PO DAILY #90 tab 08/28/19 01/28/20 01/28/20 Rx magnesium L-lactate 84 mg 84 mg PO DAILY #30 tab 11/03/19 01/28/20 01/28/20 Rx tablet,extended release montelukast 10 mg tablet 10 mg PO DAILY #30 tab 01/08/20 01/28/20 01/28/20 Rx duloxetine 30 mg capsule,delayed 30 mg PO BID #60 cap 01/14/20 01/28/20 01/28/20 Rx release potassium chloride 20 mEq 20 meq PO DAILY #90 tab 01/14/20 01/28/20 01/28/20 Rx tablet,extended release topiramate 25 mg tablet 25 mg PO BID #60 tab 01/14/20 01/28/20 01/28/20 Rx amiodarone [Pacerone] 200 mg PO DAILY 30 Days #30 tab 01/24/20 01/28/20 01/28/20 Rx apixaban [Eliquis] 5 mg PO BID 30 Days #60 tab 01/24/20 01/28/20 01/28/20 Rx isosorbide mononitrate 15 mg PO DAILY #90 tab 01/24/20 01/28/20 01/28/20 Rx metoprolol tartrate 50 mg PO BID 30 Days #60 tab 01/24/20 01/28/20 01/28/20 Rx famotidine 40 mg PO DAILY 01/28/20 01/28/20 01/28/20 History Allergies Allergy/AdvReac Type Severity Reaction Status Date / Time cetirizine Allergy Unknown Verified 06/19/19 18:18 codeine Allergy Unknown Verified 06/19/19 18:18 hydromorphone [From Dilaudid] Allergy ADR-Confusion Verified 08/06/19 16:23 and mean naproxen Allergy Unknown Verified 06/19/19 18:18 Penicillins Allergy ALGY-Hives Verified 06/19/19 18:18 Sulfa (Sulfonamide Allergy Unknown Verified 06/19/19 18:18 Antibiotics) tramadol Allergy Unknown Verified 01/22/20 18:18 PFSH Acute PFSH: Medical History (Updated 01/29/20 @ 01:10 by Jt Vanegas MD) Asthma 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 Atrial fibrillation Chronic anticoagulation COPD (chronic obstructive pulmonary disease) Diabetes GERD (gastroesophageal reflux disease) History of ME (myocardial infarction) Hyperlipidemia Hypertension PAD (peripheral artery disease) Post-herpetic polyneuropathy SVT (supraventricular tachycardia) Surgical History History of hysterectomy Hx of CABG S/P CABG x 3 Family History Other CAD (coronary artery disease) Cancer Hypertension Social History Smoking and tobacco status: never smoked Second hand smoke exposure: No Smoking risk assessment/counseling performed?: No Alcohol intake: never Desire information about alcohol rehabilitation?: No Counseling given: No Desire information about substance/drug rehabilitation?: No Counseling given: No Adopted: No Caregiver/support person: No Lives independently: Yes Household members: family Housing: House Marital status: / Number of children: 4 Current occupational status: retired History of recent travel: No Current gender identity: Female Vitals/I&O/Wt Last Vital Signs Temp 97.4 F L 01/28/20 20:42 Pulse 60 01/28/20 23:10 Resp 23 H 01/28/20 23:10 BP 133/66 01/28/20 23:10 Pulse Ox 96 01/28/20 23:10 Weight last 48 hrs Weight 77.564 kg Physical Exam Narrative: EXAM NARRATIVE: General exam is a white female in no apparent distress. Heart rate initially on arrival to the ER was approximately 40 but is now 65 HEENT: Pupils equally round. Oropharynx clear. Neck is supple no lymphadenopathy or thyromegaly Cardiovascular irregular, irregular with a 2/6 systolic murmur Lungs clear Abdomen is soft nontender with positive bowel sounds. No obvious organomegaly was deferred Extremities no cyanosis clubbing or edema, cap refill brisk Skin no rash Neuro no focal deficits Data : 01/28/20 21:26 01/28/20 21:26 Other data: INR 1.89 Magnesium 2.4 Troponin XX 1 BNP 3630 Recent TSH normal Liver function tests normal Echocardiogram January 22 with EF of 36%, global hypokinesis, pulmonary hypertension mild and mild aortic valve regurgitation Chest x-ray per my read demonstrates probable left pleural effusion, unchanged from previous x-rays as well as post bypass surgery. EKG demonstrated atrial fibrillation, normal axis, left bundle with a rate of 48 A&P Assessment and plan (1) Bradycardia: Received atropine in the emergency department Hold any further amiodarone or metoprolol CSU observation Atropine if needed, repeat dose. If not effective consider dopamine Cardiology consultation Hold anticoagulation, Plavix currently as pacemaker might be needed. This will need to be revisited tomorrow morning if the medications can be restarted. Status: Acute (2) Hyperkalemia: In the emergency department will be given Kayexalate, insulin plus glucose, calcium secondary to cardiac rhythm abnormality Telemetry Repeat BMP with a.m. labs Hydration Status: Acute (3) Acute kidney injury: Hydration cautiously secondary to reduced EF Avoid anti-inflammatories Check urinalysis If does not improve consider renal ultrasound Status: Acute (4) Leukocytosis: Check urinalysis Status: Acute (5) CHF (congestive heart failure): No evidence of exacerbation currently Status: Acute Additional A&P Information History of type 2 diabetes. Not on any medications. Presumed diet controlled. Last A1c normal. Consistent carb diet. COPD, no evidence of exacerbation Atrial fibrillation, currently with slow rate. Hold rate control medication. Cardiology consultation History of GERD Coronary artery disease Hypertension Hyperlipidemia Multiple other medical problems as outlined in past medical history Allow natural SCDs for DVT prophylaxis. Holding anticoagulation in case temporary or permanent pacemaker might be needed. Attestations Medical Necessity Statement*: Will need less than 2 midnight stay, for evaluation and treatment of bradycardia Time Spent in Patient Care: Greater than 35 minutes Coding Level of Care Code Acute P[employer]cher for [facility] Fwd Diagnoses Bradycardia R00.1 Hyperkalemia E87.5 Acute kidney injury N17.9 Leukocytosis D72.829 CHF (congestive heart failure) I50.9
[2020-01-28] MEDS: calcium gluconate 0.1 gm/mL 10% SDV 10mL 1 GM IVP (23:39)
[2020-01-28] MEDS: sodium polystyrene sulfonate 15 gm/60 mL Btl 30 GM PO (23:39)
[2020-01-28] MEDS: dextrose 50% syringe 50 mL IVP (23:39)
[2020-01-28] MEDS: insulin regular-human 100 units/1 mL 10 UNIT IVP (23:42)
[2020-01-29] VITALS (14 sets, daily range): BP systolic 101–137; BP diastolic 63–89; PULSE 63–103; RESP 17–28; TEMP 36.3–36.8; O2SAT 93–97
[2020-01-29] MEDS: sodium chloride 0.9% 1,000 ML 100 ML IV ×2 (00:29→09:52)
[2020-01-29 01:28] LABS: Troponin 5 2HR 19.79 ng/L (0-10)
[2020-01-29 01:36] LABS: Troponin 5 2HR Delta -1.21 ABS# (0-10)
--- NOTE | 2020-01-29 02:59 | ECG_ITS ---
[facility] Test Date: 2020-01-29 Pat Name: Denia Price Department: Room: 104 Gender: Female Tableau Analyst: : 1935 Requested By: Angeles Vee Order Number: [id number] Yulia MD: Yesenia Smith M.D. Measurements Intervals [place] Rate: 106 P: NV: -1 QRS: -24 QRSD: 150 T: 83 QT: 391 QTc: 521 Interpretive Statements ATRIAL FIBRILLATION WITH RAPID VENTRICULAR RESPONSE LEFT BUNDLE BRANCH BLOCK [120+ ms QRS DURATION, 80+ ms Q/S IN V1/V2, 85+ ms R IN I/aVL/V5/V6] Compared to ECG 01/28/2020 20:58:31 Left bundle-branch block now present Intraventricular conduction delay no longer present Myocardial infarct finding no longer present Electronically Signed On 01-29-2020 18:51:32 CDT by Yesenia Smith M.D. [id number]
[2020-01-29] MEDS: ipratropium-albuterol 3 mL Neb INHALATION ×3 (03:31→21:43)
[2020-01-29 04:07] LABS: Basophils # 0.1 10^3/uL (0.0-0.1); Basophils % 0.7 %; Eosinophils # 0.1 10^3/uL (0.0-0.8); Eosinophils % 0.4 %; Hematocrit 38.6 % (37.0-47.0); Lymphocytes % 15.8 %; Mean Corpuscular HGB Conc 31.1 g/dL (30.0-36.0); Mean Corpuscular Volume 93.2 fL (81-99); Mean Platelet Volume 11.6 fL (7.4-10.4); Monocytes # 1.2 10^3/uL (0.2-0.9); Monocytes % 9.4 %; Neutrophils # 8.92 10^3/uL (1.8-7.7); Neutrophils % 69.9 %; Nucleated Red Blood Cells % 0 %; Platelet Count 242 10^3/cmm (130-400); Red Blood Count 4.14 10^6/uL (4.1-5.3); Red Cell Distribution Width 13.4 % (12.1-15.1); White Blood Count 12.8 10^3/uL (4.0-10.0)
[2020-01-29 04:39] LABS: Anion Gap 20.9 (5-19); Blood Urea Nitrogen 29 mg/dL (8-23); Calcium 8.9 mg/dL (8.5-10.5); Carbon Dioxide 20 mmol/L (22-29); Chloride 105 mmol/L (98-107); Glucose 104 mg/dL (65-115); Osmolality Calculated 289 mOsm/kg (285-295); Potassium 4.9 mmol/L (3.5-5.1); Sodium 141 mmol/L (136-145)
[2020-01-29 04:41] LABS: Troponin 5 6HR 16.63 ng/L (0-10)
[2020-01-29 04:44] LABS: Troponin 5 6HR Delta -4.37 ng/L (0-12)
[2020-01-29] MEDS: atorvastatin 40 mg Tablet 80 MG PO (08:23)
[2020-01-29] MEDS: duloxetine 30 mg Capsule PO ×2 (08:23→17:40)
[2020-01-29] MEDS: topiramate 25 mg Tablet PO ×2 (08:23→17:40)
[2020-01-29] MEDS: isosorbide mononitrate ER 30 mg Tablet 15 MG PO (08:24)
--- NOTE | 2020-01-29 10:37 | PC.RESP ---
Therapist busy in er, then pt resting and did not awaken for late treatment.
--- NOTE | 2020-01-29 12:44 | P.PN_ITS ---
Subjective Subjective: Interval history: Chart reviewed, noted decreased leukocytosis, normotensive, afebrile, on room air. Renal function improving. Hyperkalemia resolved. Pending cardiology evaluation. Later in the afternoon complained of shortness of breath, IV fluids discontinued and given nebulizer treatment. Breathing improved thereafter. Case discussed with Dr. Smith. Will continue telemetry monitoring and may consider giving Lasix later today due to concern for fluid overload. Medications: Reviewed: Yes Medication Review Details: Active Medications Generic Name Dose Route Start Last Admin Trade Name Freq PRN Reason Stop Dose Admin Acetaminophen 650 mg 01/28/20 23:35 Tylenol PO Q6H PRN Mild/Mod Pain Or Temp >/= 101 Albuterol/Ipratrop ium 3 ml 01/29/20 01:15 01/29/20 03:31 Duoneb INHALATION 3 ml Q6H.RESPIRATORY P RN Administration SHORTNESS OF DONOVAN TH Atorvastatin Calci um 80 mg 01/29/20 09:00 01/29/20 08:23 Lipitor PO 80 mg DAILY MICHELLE Administration Budesonide 0.5 mg 01/29/20 09:00 01/29/20 10:37 Pulmicort INHALATION Not Given BID.RESPIRATORY S CH Duloxetine HCl 30 mg 01/29/20 09:00 01/29/20 08:23 Cymbalta PO 30 mg BID MICHELLE Administration Sodium Chloride 1,000 mls @ 100 m ls/hr 01/28/20 23:35 01/29/20 09:52 Sodium Chloride 0.9% IV 100 mls/hr .Q10H MICHELLE Administration Isosorbide Mononit rate 15 mg 01/29/20 09:00 01/29/20 08:24 Imdur PO 15 mg DAILY MICHELLE Administration Non-Formulary Medi cation 2 ml 01/29/20 09:00 Formoterol Fumar ate [Perforomist] INHALATION BID MICHELLE Topiramate 25 mg 01/29/20 09:00 01/29/20 08:23 Topamax PO 25 mg BID MICHELLE Administration cetirizine Allergy (Verified 06/19/19 18:18) Unknown codeine Allergy (Verified 06/19/19 18:18) Unknown hydromorphone [From Dilaudid] Allergy (Verified 08/06/19 16:23) ADR-Confusion and mean naproxen Allergy (Verified 06/19/19 18:18) Unknown Penicillins Allergy (Verified 06/19/19 18:18) ALGY-Hives Sulfa (Sulfonamide Antibiotics) Allergy (Verified 06/19/19 18:18) Unknown tramadol Allergy (Verified 06/19/19 18:18) Unknown Vitals/I&O/Wt Last Vital Signs Temp 97.8 F 01/29/20 10:46 Pulse 75 01/29/20 10:46 Resp 28 H 01/29/20 10:46 BP 111/63 01/29/20 10:46 Pulse Ox 97 01/29/20 10:46 01/28/20 01/29/20 01/29/20 22:59 06:59 14:59 Intake Total 500 / 500 1418.333 / 1418.333 Output Total 200 / 200 Balance 500 / 500 1218.333 / 1218.333 Weight last 48 hrs Weight 80.456 kg Weight 77.564 kg Physical Exam Const: COMMON NORMALS: no acute distress, patient oriented x3 and alert GENERAL APPEARANCE: cooperative and comfortable ORIENTATION/CONSCIOUSNESS: Yes awake OTHER: -Looks younger than stated age HENMT: COMMON NORMALS: normocephalic, atraumatic, hearing grossly normal bilaterally and moist oral mucous membranes HEAD & SCALP: normocephalic and atraumatic Eye: COMMON NORMALS: Equal, round and reactive pupils present, EOMs intact bilaterally and conjunctivae normal CONJUNCTIVA: Yes conjunctivae normal PUPIL: Yes Equal, round and reactive pupils present Neck/C-Spine: COMMON NORMALS: full ROM GENERAL: Yes normal visual inspection and Yes trachea midline Resp: COMMON NORMALS: normal respiratory effort, No retractions, No use of accessory muscles and clear to auscultation bilaterally EFFORT & INSPECTION: Yes able to speak in complete sentences, Yes symmetric chest movement and No tachypneic AUSCULTATION: clear to auscultation bilaterally Cardio: COMMON NORMALS: regular rate, S1 normal heart sound present, S2 normal heart sound present and No murmurs present (Cardio) RATE: regular rate RHYTHM: abnormal rhythm irregularly irregular HEART SOUNDS: S1 normal heart sound present and S2 normal heart sound present GI: COMMON NORMALS: Normal to inspection, nondistended, normoactive bowel sounds present, Soft to palpation and non-tender PALPATION: Yes Soft to palpation Extremity: COMMON NORMALS: normal to inspection, full ROM and no clubbing, cyanosis or edema; negative for no pedal edema Neuro: COMMON NORMALS: patient oriented x3, moves all extremities, no focal motor deficits, no sensory deficits noted and gait normal SENSORIUM/ORIENTATION: Yes alert Psych: COMMON NORMALS: mental status grossly normal, Normal thought process present, cooperative, normal affect and speech normal SPEECH: Yes normal speech THOUGHT PROCESS: Normal thought process present Skin: COMMON NORMALS: no rashes or lesions noted, no jaundice, no petechiae and no mottling GENERAL SKIN EXAM: no rashes or lesions noted Data : 01/29/20 03:00 01/29/20 03:00 A&P Assessment and plan (1) Bradycardia: -Received a dose of atropine in the ER; no further doses required overnight -Heart rate within normal limits with some intermittent tachycardia overnight -Telemetry monitoring -Vital signs stable, continue to monitor -could be medication induced given recent initiation of metoprolol and amiodarone during last hospital stay due to atrial fibrillation; continue to hold -Cardiology evaluation by Dr. Smith appreciated -Echo: EF=36%, moderate global hypokinesis, mild AR, trace MR, trace TR, pulmonary HTN -troponins noted, no significant delta -CXR unchanged -TSH wnl Status: Acute (2) CHF (congestive heart failure): -no acute exacerbation currently -Echo as noted above Status: Chronic Qualifiers: Heart failure chronicity: chronic Heart failure type: systolic Qu alified Code(s): I50.22 - Chronic systolic (congestive) heart failure (3) Acute kidney injury: -on gentle IVF hydration; monitor closely for fluid overload due to underlying CHF; will d/c -baseline Cr is < 1 -continue to monitor renal function, avoid nephrotoxins, renally dose meds Status: Acute (4) CAD (coronary artery disease): -antiplatelets on hold for now in case of need for procedure -BB on hold due to bradycardia; on statin Status: Chronic Qualifiers: Associated angina: angina presence unspecified Coronary Disease- Associated Artery/Lesion type: augustine artery [place] vs. transplanted heart: augustine heart Qualified Code(s): I25.10 - Atherosclerotic heart disease of augustine coronary artery without angina pectoris (5) Hyperlipidemia: -on statin Status: Chronic Qualifiers: Hyperlipidemia type: unspecified Qualified Code(s): E78.5 - Hyperli pidemia, unspecified (6) Hypertension: -normotensive; continue to monitor vitals Status: Chronic Qualifiers: Hypertension type: essential hypertension Qualified Code(s): I10 - Essential (primary) hypertension (7) COPD (chronic obstructive pulmonary disease): -no acute exacerbation -CXR noted -supplemental oxygen as needed; uses 3 L O2 qhs Status: Chronic Qualifiers: COPD type: unspecified COPD Qualified Code(s): J44.9 - Chronic obstructive pulmonary disease, unspecified (8) GERD (gastroesophageal reflux disease): Status: Chronic Qualifiers: Esophagitis presence: esophagitis presence not specified Qualified Code(s): K21.9 - Gastro-esophageal reflux disease without esophagitis (9) Diabetes: -A1c at goal-6.0 -hypoglycemia precautions -consistent carb diet as tolerated Status: Chronic Qualifiers: Chronic kidney disease stage: stage 2 (mild) Diabetes mellitus complication detail: with chronic kidney disease Diabetes mellitus complication status: with kidney complications Diabetes mellitus terminal make up operator insulin use: without custodial use Diabetes mellitus type: type 2 Qualified Code(s): E11.22 - Type 2 diabetes mellitus with diabetic chronic kidney disease; N18.2 - Chronic kidney disease, stage 2 (mild) Additional A&P Information -PVD -Advanced age -noted leukocytosis; improving, UA indicative of infection; will start on oral ciprofloxacin (has PCN and sulfa allergies) -atrial fibrillation, recently diagnosed; slow ventricular response -hx of splenic hematoma -DVT ppx with SCDs -Dispo: home, lives with daughter -Code status: DNR/DNI Attestations Medical Necessity Statement*: Patient requires hospitalization for continued telemetry monitoring and management of symptomatic bradycardia; pending ca rdiology evaluation. Time Spent in Patient Care: 16 - 35 minutes (>than 50% of time spent in counselling and/or direct pt care on unit) . Coding Level of Care Code Acute Tin Flopper for g Fwd Exam Comprehensive Diagnoses Bradycardia R00.1 CHF (congestive heart failure) I50.22 Heart failure chronicity: chronic Heart failure type: systolic Acute kidney injury N17.9 CAD (coronary artery disease) I25.10 Associated angina: angina presence unspecified Coronary Disease-Associated Artery/Lesion type: augustine artery [place] vs. transplanted heart: augustine heart Hyperlipidemia E78.5 Hyperlipidemia type: unspecified Hypertension I10 Hypertension type: essential hypertension COPD (chronic obstructive pulmonary disease) J44.9 COPD type: unspecified COPD GERD (gastroesophageal reflux disease) K21.9 Esophagitis presence: esophagitis presence not specified Diabetes E11.22; N18.2 Chronic kidney disease stage: stage 2 (mild) Diabetes mellitus complication detail: with chronic kidney disease Diabetes mellitus complication status: with kidney complications Diabetes mellitus custodial insulin use: without terminal make up operator use Diabetes mellitus type: type 2
[2020-01-29 15:26] LABS: Bilirubin Urine Neg (NEGATIVE); Blood Urine Neg (Negative); Glucose Urine UA Norm (Normal); Ketones Urine Negative (Negative); Leukocyte Esterase Urine Negative (Negative); Nitrate Urine Positive (Negative); Protein Urine Neg (Negative); Urine Appearance SL Hazy (CLEAR); Urine Color Yellow (Yellow); Urobilinogen Urine Norm (Negative); pH Urine 5 (5-7)
[2020-01-29 15:37] LABS: Add Urine Culture? Yes; Bacteria Urine 4+; RBC Urine 0-4 /hpf (0-2); Squamous Epithelial Cell Urine 0-4 (0-5)
--- NOTE | 2020-01-29 17:37 | PC.NURSE ---
Patient reports she needs air meaning oxygen patient is in no distress however is breathing harder than last rounding patient reports she uses a puffer at home respiratory notified to see if patient has a PRN breathing treatment Dr. Jaeger notified of changes at this time
[2020-01-29] MEDS: ciprofloxacin 500 mg Tablet PO (17:47)
--- NOTE | 2020-01-29 17:56 | PC.NURSE ---
Respiratory at bedside for breathing treatment. patient reports she feels better Dr. Jaeger notified no new instructions given at this time; will await further orders or instructions.
--- NOTE | 2020-01-29 18:09 | PC.NURSE ---
Dr. bolanos at bedside for assessment and consultation
--- NOTE | 2020-01-29 18:12 | PC.NURSE ---
Verbal Instructions to stop iv fluids at this time from Dr. Smith during bedside assessment
--- NOTE | 2020-01-29 18:13 | P.CONIM_ITS ---
Providers/Reason For Consult Consulting Physican/Specialty*: Cardiology Reason for Consult*: Bradycardia, atrial fibrillation, acute on chronic renal failure Attending Physician: Jaja Jaeger MD Primary Care Provider: JIL Izaguirre History of Present Illness History of Present Illness Denia Price is a 84 year old female past medical history significant for coronary artery disease severely depressed ejection fraction 36%, COPD, CHF systolic type and atrial fibrillation presented with A. fib with slow ventricular response heart rate into 30s but stable vital bettencourt. She was given atropine and started on dopamine drip which increase the heart rate. Patient was admitted to the [facility] as she was also noted to have UTI and acute renal failure with creatinine of more than 2. Baseline creatinine around 1.1. She was also started on IV fluid and antibiotics. Recently patient's atrial fibrillation medicine were optimized for rapid ventricle response. She was sent home on 200 mg of daily amiodarone and 50 twice daily of metoprolol. Both medicines were held yesterday. Today I saw the patient her heart rate is into 60s and 70s but she is short of breath she has IV fluids going on she has crackles more on left than right. She appears to be slightly volume overloaded. She also has pleural effusion on the left side as per x-ray. She denies any chest pain. She admits to PND orthopnea. She would like to have her inhaler back. She cannot talks in sentences due to shortness of breath. Review of Systems General: Reports: 10 or more systems reviewed and unremarkable except in HPI and below Const: Reports: fatigue; Denies: fever(s), chills, body aches, malaise or diaphoresis Eyes: Denies: change in vision, blurry vision, photophobia, eye discomfort, eye discharge or eye redness ENMT: Denies: throat pain, odynophagia, hoarseness, swelling of lips/tongue, ear or mastoid pain, ear discharge, change in hearing or nasal discharge Card: Denies: chest pain, palpitations, irregular heart rhythm, edema, syncope, pre-syncope, dyspnea on exertion or orthopnea Resp: Reports: dyspnea; Denies: productive cough, non-productive cough, wheezing, hemoptysis or chest congestion GI: Denies: abdominal pain, nausea, vomiting, hematemesis, coffee ground emesis, heartburn, diarrhea, constipation, GI cramping, hematochezia or melena : Denies: flank pain, dysuria, urinary frequency, urinary urgency or hematuria Musc: Denies: neck pain, back pain, extremity pain, extremity swelling, joint pain, joint swelling, joint redness, joint warmth or joint stiffness Skin/Breast: Denies: rash, pruritus, erythema or skin tenderness Neuro: Denies: headache(s), numbness in extremities, weakness in extremities, sensory changes, lack of coordination, difficulty walking, dizziness, vertigo, confusion, Slurred speech present or seizure-like activity Psych: Denies: anxiety Endo: Denies: polyuria Shay/Lymph: Denies: easy bruising, easy bleeding, petechiae, purpura or enlarged lymph nodes All/Imm: Denies: urticaria, throat swelling, tongue swelling, facial swelling or acute wheezing Meds/Allergies Home Medications and Allergies Home Medications Medication Instructions Recorded Confirmed Last Taken Type budesonide 0.5 mg/2 mL suspension 0.5 mg INHALATION BID 07/03/19 01/28/20 01/27/20 History for nebulization formoterol fumarate 20 mcg/2 mL 2 ml INHALATION BID 07/03/19 01/28/20 01/27/20 History solution for nebulization nitroglycerin 0.4 mg sublingual 0.4 mg SUBLINGUAL Q5M PRN 07/03/19 01/28/20 Unknown History tablet lidocaine 5 % topical patch 1 patch TOPICAL DAILY #30 each 08/06/19 01/28/20 Unknown Rx clopidogrel 75 mg tablet 75 mg PO DAILY #90 tab 08/28/19 01/28/20 01/28/20 Rx rosuvastatin 40 mg tablet 40 mg PO DAILY #90 tab 08/28/19 01/28/20 01/28/20 Rx magnesium L-lactate 84 mg 84 mg PO DAILY #30 tab 11/03/19 01/28/20 01/28/20 Rx tablet,extended release montelukast 10 mg tablet 10 mg PO DAILY #30 tab 01/08/20 01/28/20 01/28/20 Rx duloxetine 30 mg capsule,delayed 30 mg PO BID #60 cap 01/14/20 01/28/20 01/28/20 Rx release potassium chloride 20 mEq 20 meq PO DAILY #90 tab 01/14/20 01/28/20 01/28/20 Rx tablet,extended release topiramate 25 mg tablet 25 mg PO BID #60 tab 01/14/20 01/28/20 01/28/20 Rx amiodarone [Pacerone] 200 mg PO DAILY 30 Days #30 tab 01/24/20 01/28/20 01/28/20 Rx apixaban [Eliquis] 5 mg PO BID 30 Days #60 tab 01/24/20 01/28/20 01/28/20 Rx isosorbide mononitrate 15 mg PO DAILY #90 tab 01/24/20 01/28/20 01/28/20 Rx metoprolol tartrate 50 mg PO BID 30 Days #60 tab 01/24/20 01/28/20 01/28/20 Rx famotidine 40 mg PO DAILY 01/28/20 01/28/20 01/28/20 History Allergies Allergy/AdvReac Type Severity Reaction Status Date / Time cetirizine Allergy Unknown Verified 06/19/19 18:18 codeine Allergy Unknown Verified 06/19/19 18:18 hydromorphone [From Dilaudid] Allergy ADR-Confusion Verified 08/06/19 16:23 and mean naproxen Allergy Unknown Verified 06/19/19 18:18 Penicillins Allergy ALGY-Hives Verified 06/19/19 18:18 Sulfa (Sulfonamide Allergy Unknown Verified 06/19/19 18:18 Antibiotics) tramadol Allergy Unknown Verified 06/19/19 18:18 Current Medications Current Medications Generic Name Dose Route Start Last Admin Trade Name Freq PRN Reason Stop Dose Admin Albuterol/Ipratropium 3 ml 01/29/20 01:15 01/29/20 17:45 Duoneb INHALATION 3 ml Q6H.RESPIRATORY PRN Administration SHORTNESS OF BREATH Atorvastatin Calcium 80 mg 01/29/20 09:00 01/29/20 08:23 Lipitor PO 80 mg DAILY MICHELLE Administration Budesonide 0.5 mg 01/29/20 09:00 01/29/20 10:37 Pulmicort INHALATION Not Given BID.RESPIRATORY MICHELLE Ciprofloxacin HCl 500 mg 01/29/20 18:00 01/29/20 17:47 Cipro PO 500 mg BID MICHELLE Administration Protocol Duloxetine HCl 30 mg 01/29/20 09:00 01/29/20 17:40 Cymbalta PO 30 mg BID MICHELLE Administration Sodium Chloride 1,000 mls @ 75 mls/hr 01/28/20 23:35 01/29/20 12:15 Sodium Chloride 0.9% IV 75 mls/hr .[id number] MICHELLE Infusion Isosorbide Mononitrate 15 mg 01/29/20 09:00 01/29/20 08:24 Imdur PO 15 mg DAILY MICHELLE Administration Topiramate 25 mg 01/29/20 09:00 01/29/20 17:40 Topamax PO 25 mg BID MICHELLE Administration Additional Medication Information Active Medications Generic Name Dose Route Start Last Admin Trade Name Freq PRN Reason Stop Dose Admin Acetaminophen 650 mg 01/28/20 23:35 Tylenol PO Q6H PRN Mild/Mod Pain Or Temp >/= 101 Albuterol/Ipratropium 3 ml 01/29/20 01:15 01/29/20 03:31 Duoneb INHALATION 3 ml Q6H.RESPIRATORY PRN Administration SHORTNESS OF BREATH Atorvastatin Calcium 80 mg 01/29/20 09:00 01/29/20 08:23 Lipitor PO 80 mg DAILY MICHELLE Administration Budesonide 0.5 mg 01/29/20 09:00 01/29/20 10:37 Pulmicort INHALATION Not Given BID.RESPIRATORY MICHELLE Duloxetine HCl 30 mg 01/29/20 09:00 01/29/20 08:23 Cymbalta PO 30 mg BID MICHELLE Administration Sodium Chloride 1,000 mls @ 100 mls/hr 01/28/20 23:35 01/29/20 09:52 Sodium Chloride 0.9% IV 100 mls/hr .Q10H MICHELLE Administration Isosorbide Mononitrate 15 mg 01/29/20 09:00 01/29/20 08:24 Imdur PO 15 mg DAILY MICHELLE Administration Non-Formulary Medication 2 ml 01/29/20 09:00 Formoterol Fumarate [Perforomist] INHALATION BID MICHELLE Topiramate 25 mg 01/29/20 09:00 01/29/20 08:23 Topamax PO 25 mg BID MICHELLE Administration cetirizine Allergy (Verified 06/19/19 18:18) Unknown codeine Allergy (Verified 06/19/19 18:18) Unknown hydromorphone [From Dilaudid] Allergy (Verified 08/06/19 16:23) ADR-Confusion and mean naproxen Allergy (Verified 06/19/19 18:18) Unknown Penicillins Allergy (Verified 06/19/19 18:18) ALGY-Hives Sulfa (Sulfonamide Antibiotics) Allergy (Verified 06/19/19 18:18) Unknown tramadol Allergy (Verified 06/19/19 18:18) Unknown PFSH Acute PFSH: Medical History (Updated 01/29/20 @ 18:26 by Yesenia Smith MD) Asthma 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 Atrial fibrillation Chronic anticoagulation COPD (chronic obstructive pulmonary disease) Diabetes GERD (gastroesophageal reflux disease) History of ND (myocardial infarction) Hyperlipidemia Hypertension PAD (peripheral artery disease) Post-herpetic polyneuropathy SVT (supraventricular tachycardia) Surgical History History of hysterectomy Hx of CABG S/P CABG x 3 Family History Other CAD (coronary artery disease) Cancer Hypertension Social History Smoking and tobacco status: never smoked Second hand smoke exposure: No Smoking risk assessment/counseling performed?: No Alcohol intake: never Desire information about alcohol rehabilitation?: No Counseling given: No Desire information about substance/drug rehabilitation?: No Counseling given: No Adopted: No Caregiver/support person: No Lives independently: Yes Household members: family Housing: House Marital status: / Number of children: 4 Current occupational status: retired History of recent travel: No Current gender identity: Female Dietary Habits: Current diet type/program: diabetic Caffeine: Yes Safety: Seatbelt use: always Helmet use: No Drive intoxicated or 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 NECK: No jugular vein distension. HEENT: No cyanosis. No icterus. No pallor. HEART: Irregularly irregular S1 and S2. No murmur, rub or gallop. LUNGS: Left lower lobe inspiratory crackles, decreased breathing bilaterally ABDOMEN: Soft, nontender and nondistended. Positive bowel sounds. No guarding, rebound or tenderness. CENTRAL NERVOUS SYSTEM: Grossly nonfocal. EXTREMITIES: Lower extremities with 1+ edema bilaterally. A&P Assessment and plan (1) Bradycardia: Patient bradycardia is improved continue holding amiodarone and beta- otto tonight. From tomorrow we will switch her to Coreg 3.125 mg twice a day and amiodarone 200 mg once a day. Patient is not on anticoagulation due to history of bleed and splenic hematoma Status: Acute (2) Acute kidney injury: States continues to improve. 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
--- NOTE | 2020-01-29 18:28 | PC.NURSE ---
Dr Jaeger on unit to speak with cardiology to discuss POC and check on patient new orders to follow
[2020-01-29] MEDS: budesonide 0.5 mg/2 mL Neb INHALATION (21:43)
[2020-01-30] VITALS (12 sets, daily range): BP systolic 80–174; BP diastolic 50–93; PULSE 74–92; RESP 18–27; TEMP 36.5–37; O2SAT 90–97
[2020-01-30 04:14] LABS: Basophils # 0.1 10^3/uL (0.0-0.1); Basophils % 0.6 %; Eosinophils # 0.2 10^3/uL (0.0-0.8); Hematocrit 34.6 % (37.0-47.0); Hemoglobin 10.4 g/dL (11.5-15.3); Lymphocytes # 1.5 10^3/uL (0.8-4.8); Lymphocytes % 16.6 %; Mean Corpuscular HGB Conc 30.1 g/dL (30.0-36.0); Mean Corpuscular Hemoglobin 28.7 pg (28.0-34.0); Mean Corpuscular Volume 95.6 fL (81-99); Mean Platelet Volume 11.4 fL (7.4-10.4); Monocytes # 1.1 10^3/uL (0.2-0.9); Neutrophils # 5.94 10^3/uL (1.8-7.7); Neutrophils % 67.3 %; Nucleated Red Blood Cells % 0 %; Platelet Count 209 10^3/cmm (130-400); Red Blood Count 3.62 10^6/uL (4.1-5.3); Red Cell Distribution Width 13.4 % (12.1-15.1); White Blood Count 8.8 10^3/uL (4.0-10.0)
[2020-01-30 04:51] LABS: Anion Gap 14.7 (5-19); Blood Urea Nitrogen 20 mg/dL (8-23); Calcium 8.1 mg/dL (8.5-10.5); Carbon Dioxide 23 mmol/L (22-29); Chloride 108 mmol/L (98-107); Glucose 148 mg/dL (65-115); Osmolality Calculated 293 mOsm/kg (285-295); Potassium 3.7 mmol/L (3.5-5.1); Sodium 142 mmol/L (136-145)
[2020-01-30] MEDS: ipratropium-albuterol 3 mL Neb INHALATION ×2 (08:22→19:58)
[2020-01-30] MEDS: budesonide 0.5 mg/2 mL Neb INHALATION ×2 (08:22→19:58)
[2020-01-30] MEDS: duloxetine 30 mg Capsule PO ×2 (08:57→17:26)
[2020-01-30] MEDS: ciprofloxacin 500 mg Tablet PO ×2 (08:57→17:26)
[2020-01-30] MEDS: topiramate 25 mg Tablet PO ×2 (08:57→17:26)
[2020-01-30] MEDS: atorvastatin 40 mg Tablet 80 MG PO (08:57)
[2020-01-30] MEDS: isosorbide mononitrate ER 30 mg Tablet 15 MG PO (08:57)
--- NOTE | 2020-01-30 09:24 | P.PN_ITS ---
Subjective Subjective: Interval history: Resting quietly in bed, no apparent distress, on RA, no reported overnight issues. Had 550 mL urine output overnight. Given low dose Coreg this AM and noted to be hypotensive though BP quickly improved without intervention (SBP-80->103). Discussed with Dr. Smith and recommended rechecking BP around 1400 and if appropriate can proceed with giving Amiodarone 200 mg. Patient asymptomatic despite low BP read. Noted resolved leukocytosis, slight drop in hemoglobin to 10.8, improved creatinine to 1.1. Blood pressure improved in the afternoon and able to give amiodarone dose. Medications: Reviewed: Yes Medication Review Details: Active Medications Generic Name Dose Route Start Last Admin Trade Name Freq PRN Reason Stop Dose Admin Acetaminophen 650 mg 01/28/20 23:35 Tylenol PO Q6H PRN Mild/Mod Pain Or Temp >/= 101 Albuterol/Ipratrop ium 3 ml 01/29/20 01:15 01/30/20 08:22 Duoneb INHALATION 3 ml Q6H.RESPIRATORY P RN Administration SHORTNESS OF DONOVAN TH Atorvastatin Calci um 80 mg 01/29/20 09:00 01/30/20 08:57 Lipitor PO 80 mg DAILY MICHELLE Administration Budesonide 0.5 mg 01/29/20 09:00 01/30/20 08:22 Pulmicort INHALATION 0.5 mg BID.RESPIRATORY S CH Administration Ciprofloxacin HCl 500 mg 01/29/20 18:00 01/30/20 08:57 Cipro PO 500 mg BID MICHELLE Administration Protocol Duloxetine HCl 30 mg 01/29/20 09:00 01/30/20 08:57 Cymbalta PO 30 mg BID MICHELLE Administration Isosorbide Mononit rate 15 mg 01/29/20 09:00 01/30/20 08:57 Imdur PO 15 mg DAILY MICHELLE Administration Non-Formulary Medi cation 2 ml 01/29/20 09:00 Formoterol Fumar ate [Perforomist] INHALATION BID MICHELLE Topiramate 25 mg 01/29/20 09:00 01/30/20 08:57 Topamax PO 25 mg BID MICHELLE Administration cetirizine Allergy (Verified 06/19/19 18:18) Unknown codeine Allergy (Verified 06/19/19 18:18) Unknown hydromorphone [From Dilaudid] Allergy (Verified 08/06/19 16:23) ADR-Confusion and mean naproxen Allergy (Verified 06/19/19 18:18) Unknown Penicillins Allergy (Verified 06/19/19 18:18) ALGY-Hives Sulfa (Sulfonamide Antibiotics) Allergy (Verified 06/19/19 18:18) Unknown tramadol Allergy (Verified 06/19/19 18:18) Unknown Vitals/I&O/Wt Last Vital Signs Temp 98.1 F 01/30/20 07:15 Pulse 92 01/30/20 08:29 Resp 20 H 01/30/20 08:29 BP 112/76 01/30/20 07:15 Pulse Ox 95 01/30/20 08:29 01/29/20 01/30/20 01/30/20 22:59 06:59 14:59 Intake Total 240 / 1896.666 110 / 2006.666 240 / 240 Output Total 250 / 450 300 / 300 Balance -10 / 1446.666 110 / 1556.666 -60 / -60 Weight last 48 hrs Weight 82.645 kg Weight 80.456 kg Weight 77.564 kg Physical Exam Const: COMMON NORMALS: no acute distress, patient oriented x3 and alert GENERAL APPEARANCE: cooperative and comfortable ORIENTATION/CONSCIOUSNESS: Yes awake OTHER: -Looks younger than stated age HENMT: COMMON NORMALS: normocephalic, atraumatic, hearing grossly normal bilaterally and moist oral mucous membranes HEAD & SCALP: normocephalic and atraumatic Eye: COMMON NORMALS: Equal, round and reactive pupils present, EOMs intact bilaterally and conjunctivae normal CONJUNCTIVA: Yes conjunctivae normal PUPIL: Yes Equal, round and reactive pupils present Neck/C-Spine: COMMON NORMALS: full ROM GENERAL: Yes normal visual inspection and Yes trachea midline Resp: COMMON NORMALS: normal respiratory effort, No retractions, No use of accessory muscles and clear to auscultation bilaterally EFFORT & INSPECTION: Yes able to speak in complete sentences, Yes symmetric chest movement and No tachypneic AUSCULTATION: clear to auscultation bilaterally Cardio: COMMON NORMALS: regular rate, S1 normal heart sound present, S2 normal heart sound present and No murmurs present (Cardio) RATE: regular rate RHYTHM: abnormal rhythm irregularly irregular HEART SOUNDS: S1 normal heart sound present and S2 normal heart sound present GI: COMMON NORMALS: Normal to inspection, nondistended, normoactive bowel sounds present, Soft to palpation and non-tender PALPATION: Yes Soft to palpation Extremity: COMMON NORMALS: normal to inspection, full ROM and no clubbing, cyanosis or edema; negative for no pedal edema Neuro: COMMON NORMALS: patient oriented x3, moves all extremities, no focal motor deficits, no sensory deficits noted and gait normal SENSORIUM/ORIENTATION: Yes alert Psych: COMMON NORMALS: mental status grossly normal, Normal thought process present, cooperative, normal affect and speech normal SPEECH: Yes normal speech THOUGHT PROCESS: Normal thought process present Skin: COMMON NORMALS: no rashes or lesions noted, no jaundice, no petechiae an d no mottling GENERAL SKIN EXAM: no rashes or lesions noted Data : 01/30/20 03:05 01/30/20 03:05 Micro: Microbiology 01/29/20 15:00 Urine Culture - Preliminary Urine,Clean Catch Gram Negative Rods A&P Assessment and plan (1) Bradycardia: -Received a dose of atropine in the ER; no further doses required overnigh t -Heart rate within normal limits with some intermittent tachycardia though none overnight -Telemetry monitoring -Vital signs stable, continue to monitor -could be medication induced given recent initiation of metoprolol and amiodarone during last hospital stay due to atrial fibrillation; continue to hold -Cardiology evaluation by Dr. Smith appreciated -Echo: EF=36%, moderate global hypokinesis, mild AR, trace MR, trace TR, pulmonary HTN -troponins noted, no significant delta -CXR unchanged -TSH wnl -per cardiology recommendations, will start on Coreg 3.125 mg BID and Amiodarone 200 mg daily if blood pressure tolerates Status: Acute (2) CHF (congestive heart failure): -no acute exacerbation currently -Echo as noted above Status: Chronic Qualifiers: Heart failure chronicity: chronic Heart failure type: systolic Qualified Code(s): I50.22 - Chronic systolic (congestive) heart failure (3) Acute kidney injury: -off gentle IVF hydration due to fluid overload, has underlying CHF -baseline Cr is < 1 -continue to monitor renal function, avoid nephrotoxins, renally dose meds -improved renal function Status: Acute (4) CAD (coronary artery disease): -antiplatelets on hold for now in case of need for procedure -BB on hold due to bradycardia; on statin Status: Chronic Qualifiers: Associated angina: angina presence unspecified Coronary Disease- Associated Artery/Lesion type: [place] artery [place] vs. transplanted heart: galena heart Qualified Code(s): I25.10 - Atherosclerotic heart disease of [place] coronary artery without angina pectoris (5) Hyperlipidemia: -on statin Status: Chronic Qualifiers: Hyperlipidemia type: unspecified Qualified Code(s): E78.5 - Hyperlipidemia, unspecified (6) Hypertension: -normotensive; continue to monitor vitals Status: Chronic Qualifiers: Hypertension type: essential hypertension Qualified Code(s): I10 - Essential (primary) hypertension (7) COPD (chronic obstructive pulmonary disease): -no acute exacerbation -CXR noted -supplemental oxygen as needed; uses 3 L O2 qhs Status: Chronic Qualifiers: COPD type: unspecified COPD Qualified Code(s): J44.9 - Chronic obstructive pulmonary disease, unspecified (8) GERD (gastroesophageal reflux disease): Status: Chronic Qualifiers: Esophagitis presence: esophagitis presence not specified Qualified Code(s): K21.9 - Gastro-esophageal reflux disease without esophagitis (9) Diabetes: -A1c at goal-6.0 -hypoglycemia precautions -consistent carb diet as tolerated Status: Chronic Qualifiers: Chronic kidney disease stage: stage 2 (mild) Diabetes mellitus com plication detail: with chronic kidney disease Diabetes mellitus complication status: with kidney complications Diabetes mellitus intermediate card tender insulin use: without halfway use Diabetes mellitus type: type 2 Qualified Code(s): E11.22 - Type 2 diabetes mellitus with diabetic chronic kidney disease; N18.2 - Chronic kidney disease, stage 2 (mild) Additional A&P Information -PVD -Advanced age -noted leukocytosis; improving, UA indicative of infection; on oral ciprofloxacin (has PCN and sulfa allergies); urine cx-GNRs, pending ID & sensitivity -atrial fibrillation, recently diagnosed; slow ventricular response -hx of splenic hematoma -DVT ppx with SCDs -Dispo: home, lives with daughter -Code status: DNR/DNI Attestations Medical Necessity Statement*: Patient requires hospitalization for continued telemetry monitoring, adjustment of medications for appropriate HR control. Time Spent in Patient Care: 16 - 35 minutes (>than 50% of time spent in counselling and/or direct pt care on unit) . Coding Level of Care Code Acute Acid Dumper for Chg Fwd Exam Comprehensive Diagnoses Bradycardia R00.1 CHF (congestive heart failure) I50.22 Heart failure chronicity: chronic Heart failure type: systolic Acute kidney injury N17.9 CAD (coronary artery disease) I25.10 Associated angina: angina presence unspecified Coronary Disease-Associated Artery/Lesion type: [place] artery [place] vs. transplanted heart: [place] heart Hyperlipidemia E78.5 Hyperlipidemia type: unspecified Hypertension I10 Hypertension type: essential hypertension COPD (chronic obstructive pulmonary disease) J44.9 COPD type: unspecified COPD GERD (gastroesophageal reflux disease) K21.9 Esophagitis presence: esophagitis presence not specified Diabetes E11.22; N18.2 Chronic kidney disease stage: stage 2 (mild) Diabetes mellitus complication detail: with chronic kidney disease Diabetes mellitus complication status: with kidney complications Diabetes mellitus intermediate card tender insulin use: without halfway use Diabetes mellitus type: type 2
[2020-01-30] MEDS: carvedilol 3.125 mg Tablet PO (09:58)
--- NOTE | 2020-01-30 10:45 | PC.NURSE ---
patient mildly hypotensive at this time bp 80/50 map remains greater than 60; patient denies any s/s of low blood pressure. Dr Jaeger notified instructions given to monitor patients blood pressure and hold amioderone at this time.
--- NOTE | 2020-01-30 11:10 | PC.NURSE ---
Dr bolanos at bedside for assessment verbal instructions given to monitor blood pressure and check at 1400 if sys blood pressure 105 or greater give 200mg amioderone PO
--- NOTE | 2020-01-30 11:14 | PC.CHAP ---
Pastoral Care Encounter/Spiritual Assessment Type of Contact [] Declined mail technician visit [] Patient/Family/Request visit [] Outpatient visit [] Follow-up visit [] Physician referral [] Code/Alert [x] Routine visit [] Staff referral [] Actively dying [] Patient sleeping [] Family support [] [] Out of room [] Palliative care [] [x] Receiving care in room [] Pre-surgical visit [] Trauma [] Long length of stay [] ICU visit [] Other: Relational/Emotional Strength [x] Patient feels connected with others/family/visitors/staff [] Distress [] Loneliness/isolation [] Abandonment Spirituality of Patient [x] Person of Sandi [] Attends Confucianism of their Sandi [x] Believes in Prayer [] Reads Bible or Presybeterian materials [] There are Spiritual issues to be addressed Overhauler Interventions [x] Prayer [x] Active listening [x] Non-anxious presence [x] Spiritual/emotional support [] Crisis/trauma care [x] Spiritual counseling [] Bereavement support [] Provided bereavement packet [] Provided Bible/devotional materials [] Provided toy/stuffed animal, coloring book to patient or family member [] Provided Communion [] Anointing/[place] [] Salvation [x] Completed spiritual assessment [] Other: Impact on Illness or Injury [] Angry [] Fearful [] Anxious [] Often cries [] Exhaustion [] Unable to work [] Unable to attend evangelical [] Unable to walk/stand [] Unable to read [] Unable to drive [] Unable to eat/drink [] Unable to sleep [] Unable to be with family [] Patient intubated [] Other: Summary Changing meds doesn't know why? Some confussion has a negitive attitude, was able, she was able to communicate her feelings. Time spent with patient 10 mins
--- NOTE | 2020-01-30 11:58 | P.PN_ITS ---
Subjective Subjective: Interval history: Heart rate remained stable however she dropped her blood pressure after Coreg 3.125 mg. With systolic blood pressure is in 80s. She is asymptomatic though. Medications: Reviewed: Yes Medication Review Details: Active Medications Generic Name Dose Route Start Last Admin Trade Name Freq PRN Reason Stop Dose Admin Acetaminophen 650 mg 01/28/20 23:35 Tylenol PO Q6H PRN Mild/Mod Pain Or Temp >/= 101 Albuterol/Ipratrop ium 3 ml 01/29/20 01:15 01/30/20 08:22 Duoneb INHALATION 3 ml Q6H.RESPIRATORY P RN Administration SHORTNESS OF DONOVAN TH Atorvastatin Calci um 80 mg 01/29/20 09:00 01/30/20 08:57 Lipitor PO 80 mg DAILY MICHELLE Administration Budesonide 0.5 mg 01/29/20 09:00 01/30/20 08:22 Pulmicort INHALATION 0.5 mg BID.RESPIRATORY S CH Administration Ciprofloxacin HCl 500 mg 01/29/20 18:00 01/30/20 08:57 Cipro PO 500 mg BID MICHELLE Administration Protocol Duloxetine HCl 30 mg 01/29/20 09:00 01/30/20 08:57 Cymbalta PO 30 mg BID MICHELLE Administration Isosorbide Mononit rate 15 mg 01/29/20 09:00 01/30/20 08:57 Imdur PO 15 mg DAILY MICHELLE Administration Non-Formulary Medi cation 2 ml 01/29/20 09:00 Formoterol Fumar ate [Perforomist] INHALATION BID [facility] Topiramate 25 mg 01/29/20 09:00 01/30/20 08:57 Topamax PO 25 mg BID MICHELLE Administration cetirizine Allergy (Verified 06/19/19 18:18) Unknown codeine Allergy (Verified 06/19/19 18:18) Unknown hydromorphone [From Dilaudid] Allergy (Verified 08/06/19 16:23) ADR-Confusion and mean naproxen Allergy (Verified 06/19/19 18:18) Unknown Penicillins Allergy (Verified 06/19/19 18:18) ALGY-Hives Sulfa (Sulfonamide Antibiotics) Allergy (Verified 06/19/19 18:18) Unknown tramadol Allergy (Verified 06/19/19 18:18) Unknown Vitals/I&O/Wt Last Vital Signs Temp 97.8 F 01/30/20 10:37 Pulse 92 01/30/20 10:37 Resp 23 H 01/30/20 10:37 BP 80/50 01/30/20 10:37 Pulse Ox 95 01/30/20 10:37 01/29/20 01/30/20 01/30/20 22:59 06:59 14:59 Intake Total 240 / 1896.666 110 / 2006.666 240 / 240 Output Total 250 / 450 300 / 300 Balance -10 / 1446.666 110 / 1556.666 -60 / -60 Weight last 48 hrs Weight 182 lb 3.2 oz Weight 177 lb 6 oz Weight 171 lb Physical Exam Narrative: EXAM NARRATIVE: GENERAL: Patient is alert, awake and oriented x3. NECK: No jugular vein distension. HEENT: No cyanosis. No icterus. No pallor. HEART: Irregularly irregular S1 and S2. No murmur, rub or gallop. LUNGS: Left lower lobe inspiratory crackles, decreased breathing bilaterally ABDOMEN: Soft, nontender and nondistended. Positive bowel sounds. No guarding, rebound or tenderness. CENTRAL NERVOUS SYSTEM: Grossly nonfocal. EXTREMITIES: Lower extremities without edema bilaterally. Data : 01/30/20 03:05 01/30/20 03:05 Micro: Microbiology 01/29/20 15:00 Urine Culture - Preliminary Urine,Clean Catch Gram Negative Rods A&P Assessment and plan (1) Bradycardia: Patient heart rate has improved into 60s to 70s still underlying rhythm is atrial fibrillation. I will resume amiodarone 200 mg from today. Continue holding metoprolol. Discontinue Coreg for now Status: Acute (2) Acute kidney injury: Improved now. Fluid was discontinued last night as patient was getting volume overloaded. Status: Acute (3) CHF (congestive heart failure): Compensated now. Status: Chronic Qualifiers: Heart failure type: systolic Heart failure chronicity: chronic Qualified Code(s): I50.22 - Chronic systolic (congestive) heart failure (4) Atrial fibrillation: Heart rate well controlled in 60s and 70s. Resume amiodarone 200 mg once a day discontinue metoprolol. Status: Acute (5) Hypotension: Blood pressure is in the 80s after Coreg 3.125 mg patient has not tolerated. For now hold it Status: Acute Attestations Medical Necessity Statement*: Patient require continuation hospitalization for above defined care Coding Level of Care Code Established Pt Acute Commissioner Of Conciliation for Chg Fwd Patient Type Established History Expanded Problem Focused Exam Expanded Problem Focused Medical Decision Making Moderate Complexity Diagnoses Bradycardia R00.1 Acute kidney injury N17.9 CHF (congestive heart failure) I50.22 Heart failure type: systolic Heart failure chronicity: chronic Atrial fibrillation I48.91 Hypotension I95.9
[2020-01-30] MEDS: amiodarone 200 mg Tablet PO (14:45)
--- NOTE | 2020-01-30 19:30 | PC.NURSE ---
Pt up to BSC and became short of breath. Audible wheezes noted. Pulse ox 93% on room air. Raised pt's head of bed up and relieved some. RT called for breathing treatment. Will continue to monitor.
[2020-01-31] VITALS (10 sets, daily range): BP systolic 120–153; BP diastolic 64–95; PULSE 79–94; RESP 18–23; TEMP 36.2–36.9; O2SAT 92–95
[2020-01-31 03:59] LABS: Basophils % 0.5 %; Eosinophils # 0.2 10^3/uL (0.0-0.8); Eosinophils % 2.9 %; Hematocrit 33.6 % (37.0-47.0); Hemoglobin 10.4 g/dL (11.5-15.3); Lymphocytes # 1.5 10^3/uL (0.8-4.8); Lymphocytes % 19.5 %; Mean Corpuscular Hemoglobin 28.7 pg (28.0-34.0); Mean Corpuscular Volume 92.6 fL (81-99); Mean Platelet Volume 11.1 fL (7.4-10.4); Monocytes % 12.8 %; Neutrophils # 4.82 10^3/uL (1.8-7.7); Neutrophils % 63.3 %; Nucleated Red Blood Cells % 0 %; Platelet Count 235 10^3/cmm (130-400); Red Blood Count 3.63 10^6/uL (4.1-5.3); Red Cell Distribution Width 13.6 % (12.1-15.1); White Blood Count 7.6 10^3/uL (4.0-10.0)
--- NOTE | 2020-01-31 04:17 | PC.NURSE ---
Pt has had no other problems this shift. Denies any pain or shortness of breath. No apparent distress noted. Will continue to monitor.
[2020-01-31 04:34] LABS: Anion Gap 11.7 (5-19); Blood Urea Nitrogen 13 mg/dL (8-23); Calcium 8.6 mg/dL (8.5-10.5); Carbon Dioxide 23 mmol/L (22-29); Chloride 110 mmol/L (98-107); Glucose 106 mg/dL (65-115); Osmolality Calculated 289 mOsm/kg (285-295); Potassium 3.7 mmol/L (3.5-5.1); Sodium 141 mmol/L (136-145)
[2020-01-31] MEDS: budesonide 0.5 mg/2 mL Neb INHALATION (08:09)
[2020-01-31] MEDS: ipratropium-albuterol 3 mL Neb INHALATION (08:09)
[2020-01-31] MEDS: ciprofloxacin 500 mg Tablet PO (08:22)
[2020-01-31] MEDS: amiodarone 200 mg Tablet PO (08:22)
[2020-01-31] MEDS: atorvastatin 40 mg Tablet 80 MG PO (08:22)
[2020-01-31] MEDS: duloxetine 30 mg Capsule PO (08:23)
[2020-01-31] MEDS: topiramate 25 mg Tablet PO (08:23)
[2020-01-31] MEDS: isosorbide mononitrate ER 30 mg Tablet 15 MG PO (08:23)
--- NOTE | 2020-01-31 13:00 | PC.NURSE ---
patient ambulated to rest room with min assistance patient tolerated well no chest pain dizziness or palpitations V/s WNL patient was also assisted to shower only requiring moderate assist with bathing and dressing patient tolerated activities very well patient denies any increase in sob or other symptoms of discomfort. Vital signs WNL after activity Patient is now sitting up in chair reports feeling well. will continue nursing cares.
--- NOTE | 2020-01-31 13:59 | PC.RESP ---
PULMONARY REHAB INFORMATION SENT TO PATIENT.
--- NOTE | 2020-01-31 14:38 | PM.DCS ---
Discharge Providers Date of Admission: 01/29/20 19:05 Date of Discharge: January 31, 2020 Attending Provider at Admission: Jt Vanegas MD Attending Provider at Discharge: Jaja Jaeger MD Consults: Cardiology, Dr. Smith Primary Care Provider: JIL Izaguirre Diagnoses at Discharge Discharge Diagnosis (1) Bradycardia: Status: Acute Problem details: -Received a dose of atropine in the ER; no further doses required overnight -Heart rate within normal limits with some intermittent tachycardia though none overnight -Telemetry monitoring -Vital signs stable, continue to monitor -could be medication induced given recent initiation of metoprolol and amiodarone during last hospital stay due to atrial fibrillation; continue to hold -Cardiology evaluation by Dr. Smith appreciated; restarted on amiodarone 200 mg daily -Echo: EF=36%, moderate global hypokinesis, mild AR, trace MR, trace TR, pulmonary HTN -troponins noted, no significant delta -CXR unchanged -TSH wnl -BP unable to tolerate BB use including low dose Coreg (2) CHF (congestive heart failure): Status: Chronic Problem details: -no acute exacerbation currently -Echo as noted above Qualifiers: Heart failure type: systolic Heart failure chronicity: chronic Qualified Code(s): I50.22 - Chronic systolic (congestive) heart failure (3) Acute kidney injury: Status: Acute Problem details: -off gentle IVF hydration due to fluid overload, has underlying CHF -baseline Cr is < 1 -continue to monitor renal function, avoid nephrotoxins, renally dose meds -improved renal function (4) CAD (coronary artery disease): Status: Chronic Problem details: -antiplatelets on hold for now in case of need for procedure -BB on hold due to bradycardia; on statin Qualifiers: Coronary Disease-Associated Artery/Lesion type: [place] artery [place] vs. transplanted heart: [place] heart Associated angina: angina presence unspecified Qualified Code(s): I25.10 - Atherosclerotic heart disease of [place] coronary artery without angina pectoris (5) Hyperlipidemia: Status: Chronic Problem details: -on statin Qualifiers: Hyperlipidemia type: unspecified Qualified Code(s): E78.5 - Hyperlipidemia, unspecified (6) Hypertension: Status: Chronic Problem details: -normotensive; continue to monitor vitals Qualifiers: Hypertension type: essential hypertension Qualified Code(s): I10 - Essential (primary) hypertension (7) COPD (chronic obstructive pulmonary disease): Status: Chronic Problem details: -no acute exacerbation -CXR noted -supplemental oxygen as needed; uses 3 L O2 qhs Qualifiers: COPD type: unspecified COPD Qualified Code(s): J44.9 - Chronic obstructive pulmonary disease, unspecified (8) GERD (gastroesophageal reflux disease): Status: Chronic Qualifiers: Esophagitis presence: esophagitis presence not specified Qualified Code(s): K21.9 - Gastro-esophageal reflux disease without esophagitis (9) Diabetes: Status: Chronic Problem details: -A1c at goal-6.0 -hypoglycemia precautions -consistent carb diet as tolerated Qualifiers: Diabetes mellitus type: type 2 Diabetes mellitus tank terminal gauger insulin use: without tank terminal gauger use Diabetes mellitus complication status: with kidney complications Diabetes mellitus complication detail: with chronic kidney disease Chronic kidney disease stage: stage 2 (mild) Qualified Code(s): E11.22 - Type 2 diabetes mellitus with diabetic chronic kidney disease; N18.2 - Chronic kidney disease, stage 2 (mild) Other Information Additional DC diagnoses/information: -PVD -Advanced age -noted leukocytosis; improving, UA indicative of infection; on oral ciprofloxacin (has PCN and sulfa allergies); urine cx-E.coli, sensitivity noted -atrial fibrillation, recently diagnosed; slow ventricular response -hx of splenic hematoma Reason for Visit Reason for Visit: WEAKNESS Hospital Course Hospital Course: Patient was admitted to the cardiac stepdown unit secondary to noted symptomatic bradycardia. She did receive a dose of atropine in the ER due to the degree of bradycardia on her arrival. This is likely medication induced as she was recently started on amiodarone and metoprolol due to atrial fibrillation having been admitted several days prior with rapid ventricular rate. She has been started on anticoagulation with Eliquis which has been continued during her hospital stay. Cardiology was consulted and recommended initially holding the antiarrhythmic and beta-otto which allowed normalization in her hemodynamic status and symptomatic improvement. She was then gradually resumed on low-dose amiodarone 200 mg daily. We did try an alternative beta-otto with low-dose Coreg but unfortunately patient became hypotensive, though asymptomatic so we will discontinue beta-otto completely moving forward per recommendations from Dr. Smith. Patient has a history of splenic hematoma and with initiation of anticoagulation with Eliquis we will go ahead and discontinue Plavix to minimize bleeding risk. She was found to have urinalysis indicative of infection with urine cultures growing E. coli. She has been on treatment with ciprofloxacin which she will need a few more doses of to complete a short treatment course. There is potential for QTC prolongation with dual treatment with amiodarone and ciprofloxacin but given the short course of treatment with the antibiotic would continue treatment as is. She will require close follow-up at heart care services in 1 week as well as follow-up with her primary care provider. She is cautioned to seek medical attention immediately should any of her symptoms recur. I reiterated medication changes and need for close monitoring of vital signs to patient's daughter Lilliana whom she lives with. Discharge Summary: -Patient to follow-up with her primary care provider within 1 week -Patient to follow-up with Gypsy Ortiz at heart care services within 1 week. Physical Exam Const: COMMON NORMALS: no acute distress, patient oriented x3 and alert GENERAL APPEARANCE: cooperative and comfortable ORIENTATION/CONSCIOUSNESS: Yes awake OTHER: -Looks younger than stated age HENMT: COMMON NORMALS: normocephalic, atraumatic, hearing grossly normal bilaterally and moist oral mucous membranes HEAD & SCALP: normocephalic and atraumatic Eye: COMMON NORMALS: Equal, round and reactive pupils present, EOMs intact bilaterally and conjunctivae normal CONJUNCTIVA: Yes conjunctivae normal PUPIL: Yes Equal, round and reactive pupils present Neck/C-Spine: COMMON NORMALS: full ROM GENERAL: Yes normal visual inspection and Yes trachea midline Resp: COMMON NORMALS: normal respiratory effort, No retractions, No use of accessory muscles and clear to auscultation bilaterally EFFORT & INSPECTION: Yes able to speak in complete sentences, Yes symmetric chest movement and No tachypneic AUSCULTATION: clear to auscultation bilaterally Cardio: COMMON NORMALS: regular rate, S1 normal heart sound present, S2 normal heart sound present and No murmurs present (Cardio) RATE: regular rate RHYTHM: abnormal rhythm irregularly irregular HEART SOUNDS: S1 normal heart sound present and S2 normal heart sound present GI: COMMON NORMALS: Normal to inspection, nondistended, normoactive bowel sounds present, Soft to palpation and non-tender PALPATION: Yes Soft to palpation Extremity: COMMON NORMALS: normal to inspection, full ROM and no clubbing, cyanosis or edema; negative for no pedal edema Neuro: COMMON NORMALS: patient oriented x3, moves all extremities, no focal motor deficits, no sensory deficits noted and gait normal SENSORIUM/ORIENTATION: Yes alert Psych: COMMON NORMALS: mental status grossly normal, Normal thought process present, cooperative, normal affect and speech normal SPEECH: Yes normal speech THOUGHT PROCESS: Normal thought process present Skin: COMMON NORMALS: no rashes or lesions noted, no jaundice, no petechiae and no mottling GENERAL SKIN EXAM: no rashes or lesions noted Discharge Data Data Completed and Pending: Completed Studies During Hospitalization Category Date Time Status XR chest 1V anitha ble [id number] Stat Exams 01/28/20 22:23 Completed Labs from last 24 hours 01/31/20 01/31/20 01/31/20 03:23 03:23 03:23 WBC 7.6 RBC 3.63 L Hgb 10.4 L Hct 33.6 L MCV 92.6 MCH 28.7 MCHC 31.0 RDW 13.6 Plt Count 235 MPV 11.1 H Neut % (Auto) 63.3 Lymph % (Auto) 19.5 [place] % (Auto) 12.8 Eos % (Auto) 2.9 Baso % (Auto) 0.5 Neut # (Auto) 4.82 Lymph # (Auto) 1.5 [place] # (Auto) 1.0 H Eos # (Auto) 0.2 Baso # (Auto) 0.0 Nucleated RBC % (a uto) 0 Nucleated RBCs # 0.0 Sodium 141 Potassium 3.7 Chloride 110 H Carbon Dioxide 23 Anion Gap 11.7 BUN 13 Creatinine 0.9 GFR Calculation Not Reportable Glucose 106 Calculated Osmolal ity 289 Calcium 8.6 Magnesium 2.0 Vitals: Last Vital Signs Temp 98.1 F 01/31/20 11:38 Pulse 80 01/31/20 12:48 Resp 23 H 01/31/20 11:38 BP 153/77 01/31/20 12:48 Pulse Ox 92 01/31/20 12:20 Discharge Plan Discharge Patient Disposition: Home Condition: Stable Prescriptions: New ciprofloxacin HCl 500 mg Tablet 500 mg PO BID 2 Days Qty: 4 RF: 0 Continued Lidoderm 5 % adhesive patch,medicated 1 patch TOPICAL DAILY Qty: 30 RF: 2 nitroglycerin [Nitrostat] 0.4 mg tablet, sublingual 0.4 mg SUBLINGUAL Q5M PRN (Reason: CHEST PAINS) RF: 0 Perforomist 20 mcg/2 mL solution for nebulization 2 ml INHALATION BID RF: 0 budesonide [Pulmicort] 0.5 mg/2 mL suspension for nebulization 0.5 mg INHALATION BID RF: 0 rosuvastatin 40 mg tablet 40 mg PO DAILY Qty: 90 RF: 3 magnesium L-lactate [Magtab] 84 mg tablet extended release 84 mg PO DAILY Qty: 30 RF: 5 montelukast [Singulair] 10 mg tablet 10 mg PO DAILY Qty: 30 RF: 2 duloxetine [Cymbalta] 30 mg capsule,delayed release(DR/EC) 30 mg PO BID Qty: 60 RF: 2 topiramate 25 mg tablet 25 mg PO BID Qty: 60 RF: 2 potassium chloride 20 mEq tablet extended release 20 meq PO DAILY Qty: 90 RF: 0 amiodarone [Pacerone] 200 mg Tablet 200 mg PO DAILY 30 Days Qty: 30 RF: 0 Eliquis 5 mg Tablet 5 mg PO BID 30 Days Qty: 60 RF: 0 isosorbide mononitrate 30 mg tablet extended release 24 hr 15 mg PO DAILY Qty: 90 RF: 3 famotidine 40 mg tablet 40 mg PO DAILY RF: 0 Discontinued clopidogrel 75 mg tablet 75 mg PO DAILY Qty: 90 RF: 3 metoprolol tartrate 50 mg Tablet 50 mg PO BID 30 Days Qty: 60 RF: 0 Discharge Orders: Discharge Order (Routine); Ordered 01/31/20 Ordered By: Jaja Jaeger Referrals: Nicol Hopkins FNP-C [Primary Care Provider] - 4-7 days (Post hospital discharge follow up) Gypsy Ortiz FNP [Nurse Practitioner] - 4-7 days (Post hospital discharge follow up. Needs ECG, labs ) Discharge Diet: Cardiac Discharge Activity: Increase activity as tolerated and Oxygen as instructed Discharge Attestations Time Spent in Discharge Care*: less than 30 min Specific Discharge Activities: Specific discharge activities: educating patient, educating and/or supporting family/caregiver (updated daughter Lilliana), discussing with clinical case manager/social workers/dc planners, documenting/other paperwork and evaluating patient/reviewing data Status at Discharge: Behavioral status at discharge: cooperative, Overall status at discharge: patient is progressing back to baseline Quality Metrics Clinical Quality Measures During this hospital stay, did patient experience: None Coding Level of Care Code Acute Installer Inspector Final for Chg Fwd Diagnoses Bradycardia R00.1 CHF (congestive heart failure) I50.22 Heart failure type: systolic Heart failure chronicity: chronic Acute kidney injury N17.9 CAD (coronary artery disease) I25.10 Coronary Disease-Associated Artery/Lesion type: [place] artery [place] vs. transplanted heart: [place] heart Associated angina: angina presence unspecified Hyperlipidemia E78.5 Hyperlipidemia type: unspecified Hypertension I10 Hypertension type: essential hypertension COPD (chronic obstructive pulmonary disease) J44.9 COPD type: unspecified COPD GERD (gastroesophageal reflux disease) K21.9 Esophagitis presence: esophagitis presence not specified Diabetes E11.22; N18.2 Diabetes mellitus type: type 2 Diabetes mellitus tank terminal gauger insulin use: without tank terminal gauger use Diabetes mellitus complication status: with kidney complications Diabetes mellitus complication detail: with chronic kidney disease Chronic kidney disease stage: stage 2 (mild)
--- NOTE | 2020-01-31 15:58 | PM.PN ---
Subjective Subjective: Interval history: Denies any complaint. Heart rate running around into 80s. Blood pressure is also under control. Breathing better Medications: Reviewed: Yes Medication Review Details: Active Medications Generic Name Dose Route Start Last Admin Trade Name Freq PRN Reason Stop Dose Admin Acetaminophen 650 mg 01/28/20 23:35 Tylenol PO Q6H PRN Mild/Mod Pain Or Temp >/= 101 Albuterol/Ipratrop ium 3 ml 01/29/20 01:15 01/30/20 08:22 Duoneb INHALATION 3 ml Q6H.RESPIRATORY P RN Administration SHORTNESS OF DONOVAN TH Atorvastatin Calci um 80 mg 01/29/20 09:00 01/30/20 08:57 Lipitor PO 80 mg DAILY MICHELLE Administration Budesonide 0.5 mg 01/29/20 09:00 01/30/20 08:22 Pulmicort INHALATION 0.5 mg BID.RESPIRATORY S CH Administration Ciprofloxacin HCl 500 mg 01/29/20 18:00 01/30/20 08:57 Cipro PO 500 mg BID MICHELLE Administration Protocol Duloxetine HCl 30 mg 01/29/20 09:00 01/30/20 08:57 Cymbalta PO 30 mg BID MICHELLE Administration Isosorbide Mononit rate 15 mg 01/29/20 09:00 01/30/20 08:57 Imdur PO 15 mg DAILY MICHELLE Administration Non-Formulary Medi cation 2 ml 01/29/20 09:00 Formoterol Fumar ate [Perforomist] INHALATION BID [facility] Topiramate 25 mg 01/29/20 09:00 01/30/20 08:57 Topamax PO 25 mg BID MICHELLE Administration cetirizine Allergy (Verified 06/19/19 18:18) Unknown codeine Allergy (Verified 06/19/19 18:18) Unknown hydromorphone [From Dilaudid] Allergy (Verified 08/06/19 16:23) ADR-Confusion and mean naproxen Allergy (Verified 06/19/19 18:18) Unknown Penicillins Allergy (Verified 06/19/19 18:18) ALGY-Hives Sulfa (Sulfonamide Antibiotics) Allergy (Verified 06/19/19 18:18) Unknown tramadol Allergy (Verified 06/19/19 18:18) Unknown Vitals/I&O/Wt Last Vital Signs Temp 98.1 F 01/31/20 11:38 Pulse 80 01/31/20 12:48 Resp 23 H 01/31/20 11:38 BP 153/77 01/31/20 12:48 Pulse Ox 92 01/31/20 12:20 01/31/20 01/31/20 01/31/20 06:59 14:59 22:59 Intake Total 120 / 780 480 / 480 Output Total 200 / 950 300 / 300 Balance -80 / -170 180 / 180 Weight last 48 hrs Weight 184 lb 9.6 oz Weight 182 lb 3.2 oz Physical Exam Narrative: EXAM NARRATIVE: GENERAL: Patient is alert, awake and oriented x3. NECK: No jugular vein distension. HEENT: No cyanosis. No icterus. No pallor. HEART: Irregularly irregular S1 and S2. No murmur, rub or gallop. LUNGS: Left lower lobe inspiratory crackles, decreased breathing bilaterally ABDOMEN: Soft, nontender and nondistended. Positive bowel sounds. No guarding, rebound or tenderness. CENTRAL NERVOUS SYSTEM: Grossly nonfocal. EXTREMITIES: Lower extremities without edema bilaterally. Data : 01/31/20 03:23 01/31/20 03:23 Micro: Microbiology 01/29/20 15:00 Urine Culture - Final Urine,Clean Catch Escherichia coli A&P Assessment and plan (1) Bradycardia: Improved. Continue 200 mg of amiodarone and discontinue metoprolol Status: Acute (2) Acute kidney injury: Improved. Status: Acute (3) CHF (congestive heart failure): Compensated now. Status: Chronic Qualifiers: Heart failure type: systolic Heart failure chronicity: chronic Qualified Code(s): I50.22 - Chronic systolic (congestive) heart failure (4) Atrial fibrillation: Rate controlled on anticoagulation we will continue. Status: Acute (5) Hypotension: Improved. Status: Acute (6) Systolic heart failure: Currently compensated. We will put her back on 20 mg of p.o. diuretics Lasix. Follow-up with Dr. Vargas as an outpatient Status: Acute Attestations Medical Necessity Statement*: Patient can be discharged home she can follow-up with Dr. Vargas as an outpatient Coding Level of Care Code Established Pt Acute Food Safety Technician for g Fwd Patient Type Established History Expanded Problem Focused Exam Expanded Problem Focused Medical Decision Making Moderate Complexity Diagnoses Bradycardia R00.1 Acute kidney injury N17.9 CHF (congestive heart failure) I50.22 Heart failure type: systolic Heart failure chronicity: chronic Atrial fibrillation I48.91 Hypotension I95.9 Systolic heart failure I50.20
--- NOTE | 2020-01-31 16:22 | PC.NURSE ---
Patient discharged home at this time in care of daughter and self. Discharge instructions given and explained new medications delivered to patient at bedside. All belongings in hand as well as discharge instructions. Patient assisted to wheel chair and accompanied to private vehicle by staff. Patient alert oriented and in stable condition.
== END 2020-01-31 16:26 | disposition home or self-care (01) ==
LOC: ER 22:30 → CSU 23:23
PROVIDERS: Emergency Medicine; Admitting Provider Internal Medicine; PCP Nurse Practitioner; Visit Provider Family Medicine
DX: R00.1 Bradycardia, unspecified (principal); E87.5 Hyperkalemia; N17.9 Acute kidney failure, unspecified; D72.829 Elevated white blood cell count, unspecified; I25.10 Atherosclerotic heart disease of native coronary artery without angina pectoris; R53.1 Weakness; R06.00 Dyspnea, unspecified; J44.9 Chronic obstructive pulmonary disease, unspecified; E78.5 Hyperlipidemia, unspecified; E11.51 Type 2 diabetes mellitus with diabetic peripheral angiopathy without gangrene; Z95.1 Presence of aortocoronary bypass graft; I48.91 Unspecified atrial fibrillation; Z79.01 Long term (current) use of anticoagulants; I25.2 Old myocardial infarction; Z82.49 Family history of ischemic heart disease and other diseases of the circulatory system; Z88.5 Allergy status to narcotic agent; I50.22 Chronic systolic (congestive) heart failure; I95.9 Hypotension, unspecified; K21.9 Gastro-esophageal reflux disease without esophagitis; N18.2 Chronic kidney disease, stage 2 (mild); E11.22 Type 2 diabetes mellitus with diabetic chronic kidney disease; I13.0 Hypertensive heart and chronic kidney disease with heart failure and stage 1 through stage 4 chronic kidney disease, or unspecified chronic kidney disease
CPT/HCPCS: 12345; 36415; 71045; 80048; 80053; 81001; 82550; 83735; 83880; 84439; 84484; 85025; 85610; 87077; 87086; 87186; 93005; 94640; 96360; 96361; 96375; 99284; G0378; J0461; J0610; J1815; J7030; J7626

== ENCOUNTER → 2020-02-13 16:26 | Outpatient (BNVA) | payer MEDICARE, SELFPAY | PROVIDERS: PCP Nurse Practitioner; Visit Provider Nurse Practitioner Family | DX: I48.91 Unspecified atrial fibrillation (principal); I50.20 Unspecified systolic (congestive) heart failure; I48.19 Other persistent atrial fibrillation; I50.23 Acute on chronic systolic (congestive) heart failure | CPT/HCPCS: 80048 ==

== ENCOUNTER 2020-03-07 19:38 | Observation (INO) | payer MEDICARE, SELFPAY ==
[2020-03-07] VITALS (13 sets, daily range): BP systolic 112–124; BP diastolic 55–77; PULSE 33–51; RESP 16–19; TEMP 36.3; O2SAT 94–100; BMI 30.1
--- NOTE | 2020-03-07 19:53 | ECG_ITS ---
[facility] Test Date: 2020-03-07 Pat Name: Denia Price Department: Room: Gender: Female Infrastructure Design Engineer: : [id number] Requested By: Naty Martinez Order Number: [id number] Yulia MD: Savanna Davis M.D. Measurements Intervals [employer] Rate: 35 P: LA: -1 QRS: -22 QRSD: 134 T: 39 QT: 583 QTc: 451 Interpretive Statements ATRIAL FIBRILLATION WITH SLOW VENTRICULAR RESPONSE LEFT BUNDLE BRANCH BLOCK [120+ ms QRS DURATION, 80+ ms Q/S IN V1/V2, 85+ ms R IN I/aVL/V5/V6] Compared to ECG 01/29/2020 03:20:32 No significant changes Electronically Signed On 03-08-2020 18:16:51 CDT by Savanna Davis M.D. [email or web address]
--- NOTE | 2020-03-07 19:54 | ED_ITS ---
HPI - Dizziness General: Chief Complaint: Dizziness Stated Complaint: BRADYCARDIA Time Seen by Provider: 03/07/20 19:43 History of Present Illness: HPI Narrative: This patient is an 85-year-old female who presents today with episodes of feeling very lightheaded. She was noted to be bradycardic in the 30s by EMS. She was given a dose of atropine which has improved her heart rate into the 40s. She has been here a couple of times recently with rhythm issues. She was recently diagnosed with A. fib and was here with RVR. She was started on amiodarone and metoprolol. She then came back after that with bradycardia. Those medications were held initially. The amiodarone was restarted at 100 mg daily and they tried her on carvedilol but that dropped her blood pressure. She was eventually sent home with amiodarone at 100 mg daily. The patient's daughter came in shortly after EMS arrived and brought all the patient's home medications. It is notable that there is verapamil XL and her medications and her daughter says she has been taking that daily. It is not listed on her medications noted in the hospital. MD elicited complaint: dizziness, lightheadedness and near syncope Onset (ago): hour(s) (2) Timing: gradual onset Severity: similar to previous episodes Context: change in medication Exacerbating factors: movement/ambulation, change in body position and standing Associated symptoms: Denies chest pain, chills, headache(s), malaise, nausea or vomiting Associated neuro symptoms: Deny numbness in extremities Review of Systems General: Reports: 10 or more systems reviewed and unremarkable except in HPI and below Const: Denies: fever(s), chills, fatigue or malaise Eyes: Denies: change in vision ENMT: Denies: odynophagia Card: Denies: chest pain or swelling of feet/ankles Resp: Denies: dyspnea, productive cough or non-productive cough GI: Denies: abdominal pain, nausea or vomiting : Denies: flank pain or difficulty voiding Musc: Denies: neck pain or back pain Skin/Breast: Denies: rash Neuro: Denies: headache(s) or numbness in extremities Shay/Lymph: Denies: easy bruising or easy bleeding PFS ED PFSH: Medical History Asthma 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 Atrial fibrillation Atrial fibrillation CAD (coronary artery disease) -antiplatelets on hold for now in case of need for procedure -BB on hold due to bradycardia; on statin CHF (congestive heart failure) -no acute exacerbation currently -Echo as noted above Chronic anticoagulation COPD (chronic obstructive pulmonary disease) -no acute exacerbation -CXR noted -supplemental oxygen as needed; uses 3 L O2 qhs Diabetes GERD (gastroesophageal reflux disease) History of [place] (myocardial infarction) Hyperlipidemia -on statin Hypertension -normotensive; continue to monitor vitals PAD (peripheral artery disease) Post-herpetic polyneuropathy (~05/2019) SVT (supraventricular tachycardia) Systolic heart failure Surgical History History of hysterectomy Hx of CABG S/P CABG x 3 Family History Other CAD (coronary artery disease) Cancer Hypertension Social History Smoking and tobacco status: never smoked Second hand smoke exposure: No Smoking risk assessment/counseling performed?: No Alcohol intake: never Desire information about alcohol rehabilitation?: No Counseling given: No Desire information about substance/drug rehabilitation?: No Counseling given: No Adopted: No Caregiver/support person: No Lives independently: Yes Household members: family Housing: House Marital status: / Number of children: 4 Current occupational status: retired History of recent travel: No Current gender identity: Female Physical Exam Const: COMMON NORMALS: no acute distress, patient oriented x3, no limitations and alert GENERAL APPEARANCE: cooperative and comfortable HENMT: HEAD & SCALP: normal to inspection FACE & SINUS: normal facial exam Eye: GENERAL EYE: appearance normal, both eyes and all related structures Neck/C-Spine: COMMON NORMALS: supple, no meningeal signs and no JVD Chest: COMMONS NORMALS: normal inspection of the chest Resp: COMMON NORMALS: normal respiratory effort, No use of accessory muscles and clear to auscultation bilaterally AUSCULTATION: clear to auscultation bilaterally Cardio: COMMON NORMALS: no JVD, regular rhythm and No murmurs present (Cardio) RATE: bradycardic RHYTHM: regular rhythm GI: COMMON NORMALS: Normal to inspection, nondistended, normoactive bowel sounds present, Soft to palpation and non-tender INSPECTION: Yes normal to inspection AUSCULTATION: Yes normoactive bowel sounds PALPATION: Yes Soft to palpation Back/Pelvis: COMMON NORMALS: thoracic and lumbar spine normal to inspection Extremity: COMMON NORMALS: normal to inspection Neuro: COMMON NORMALS: patient oriented x3, moves all extremities, no focal motor deficits and no sensory deficits noted SENSORIUM/ORIENTATION: Yes alert MENINGEAL SIGNS: Yes no meningeal signs Psych: COMMON NORMALS: mental status grossly normal, cooperative and normal affect Skin: COMMON NORMALS: no rashes or lesions noted and turgor normal GENERAL SKIN EXAM: no rashes or lesions noted and turgor normal Course ED course: Patient continued to be bradycardic in the 30s and 40s during her stay in the ER. She had no symptoms related to that unless she tried to get up in which case she felt lightheaded. Her labs are unremarkable. EKG showed A. fib with a very slow ventricular response. She will be admitted to the hospitalist to the CSU for monitoring. I feel that if she is actually taking that verapamil that is in her medicine box that the most likely cause of her bradycardia is interaction between that and the other rate controlling medications. I also consulted cardiology and they will see her in the morning. Vital Signs: Vital signs: Vital Signs Temperature 97.4 F L 03/07/20 21:00 Pulse Rate 44 L 03/07/20 21:30 Respiratory Rate 18 03/07/20 21:30 Blood Pressure 116/55 03/07/20 21:30 Pulse Oximetry 98 03/07/20 21:30 MDM - Dizziness Lab Data: Labs: Lab Results 03/07/20 03/07/20 03/07/20 Range/Units 20:06 20:06 20:06 WBC 10.8 H (4.0-10.0) 10^3/ uL RBC 4.34 (4.1-5.3) 10^6/u L Hgb 12.4 (11.5-15.3) g/dL Hct 40.9 (37.0-47.0) % MCV 94.2 (81-99) fL MCH 28.6 (28.0-34.0) pg MCHC 30.3 (30.0-36.0) g/dL RDW 13.8 (12.1-15.1) % Plt Count 183 (130-400) 10^3/c mm MPV 11.7 H (7.4-10.4) fL Neut % (Auto) 77.9 % Lymph % (Auto) 10.6 % Branch % (Auto) 9.0 % Eos % (Auto) 0.4 % Baso % (Auto) 0.5 % Neut # (Auto) 8.45 H (1.8-7.7) 10^3/u L Lymph # (Auto) 1.2 (0.8-4.8) 10^3/u L Branch # (Auto) 1.0 H (0.2-0.9) 10^3/u L Eos # (Auto) 0.0 (0.0-0.8) 10^3/u L Baso # (Auto) 0.1 (0.0-0.1) 10^3/u L Nucleated RBC % (a uto) 0 % Nucleated RBCs # 0.0 /100WBC Sodium 138 (136-145) mmol/L Potassium 5.3 H (3.5-5.1) mmol/L Chloride 105 (98-107) mmol/L Carbon Dioxide 23 (22-29) mmol/L Anion Gap 15.3 (5-19) BUN 21 (8-23) mg/dL Creatinine 1.6 H (0.5-0.9) mg/dL GFR Calculation Not Reportable Glucose 161 H (65-115) mg/dL Calculated Osmolal ity 292 (285-295) mOsm/k g Calcium 8.5 (8.5-10.5) mg/dL Total Bilirubin 0.3 (0.15-1.2) mg/dL AST 17 (0-32) U/L ALT 9 (0-33) U/L Alkaline Phosphata se 108 H (35-105) IU/L Troponin T Baselin e 25 H (0-10) ng/L Total Protein 6.8 (6.6-8.7) g/dL Albumin 4.1 (3.5-5.2) g/dL Globulin 2.7 (1.3-4.6) g/dL Discharge Plan Discharge Prescriptions: No Action Lidoderm 5 % adhesive patch,medicated 1 patch TOPICAL DAILY Qty: 30 RF: 2 amiodarone 100 mg tablet 100 mg PO DAILY Qty: 90 RF: 2 nitroglycerin [Nitrostat] 0.4 mg tablet, sublingual 0.4 mg SUBLINGUAL Q5M PRN (Reason: CHEST PAINS) RF: 0 Perforomist 20 mcg/2 mL solution for nebulization 2 ml INHALATION BID RF: 0 budesonide [Pulmicort] 0.5 mg/2 mL suspension for nebulization 0.5 mg INHALATION BID RF: 0 rosuvastatin 40 mg tablet 40 mg PO DAILY Qty: 90 RF: 3 magnesium L-lactate [Magtab] 84 mg tablet extended release 84 mg PO DAILY Qty: 30 RF: 5 montelukast [Singulair] 10 mg tablet 10 mg PO DAILY Qty: 30 RF: 2 duloxetine [Cymbalta] 30 mg capsule,delayed release(DR/EC) 30 mg PO BID Qty: 60 RF: 2 topiramate 25 mg tablet 25 mg PO BID Qty: 60 RF: 2 potassium chloride 20 mEq tablet extended release 20 meq PO DAILY Qty: 90 RF: 0 isosorbide mononitrate 30 mg tablet extended release 24 hr 15 mg PO DAILY Qty: 90 RF: 3 famotidine 40 mg tablet 40 mg PO DAILY RF: 0 furosemide [Lasix] 20 mg tablet 20 mg PO DAILY Qty: 30 RF: 4 Plavix 75 mg Tablet 75 mg PO DAILY RF: 0 Lopressor 50 mg Tablet 50 mg PO BID RF: 0 Eliquis 5 mg Tablet 5 mg PO DAILY RF: 0 Coding Level of Care Code ED Purchasing Engineer for Chg Fwd Exam Comprehensive
[2020-03-07 20:17] LABS: Basophils # 0.1 10^3/uL (0.0-0.1); Basophils % 0.5 %; Eosinophils % 0.4 %; Hematocrit 40.9 % (37.0-47.0); Hemoglobin 12.4 g/dL (11.5-15.3); Lymphocytes # 1.2 10^3/uL (0.8-4.8); Lymphocytes % 10.6 %; Mean Corpuscular HGB Conc 30.3 g/dL (30.0-36.0); Mean Corpuscular Hemoglobin 28.6 pg (28.0-34.0); Mean Corpuscular Volume 94.2 fL (81-99); Mean Platelet Volume 11.7 fL (7.4-10.4); Neutrophils # 8.45 10^3/uL (1.8-7.7); Neutrophils % 77.9 %; Nucleated Red Blood Cells % 0 %; Platelet Count 183 10^3/cmm (130-400); Red Blood Count 4.34 10^6/uL (4.1-5.3); Red Cell Distribution Width 13.8 % (12.1-15.1); White Blood Count 10.8 10^3/uL (4.0-10.0)
[2020-03-07 20:33] LABS: Alanine Aminotransferase 9 U/L (0-33); Albumin Level 4.1 g/dL (3.5-5.2); Alkaline Phosphatase 108 IU/L (35-105); Anion Gap 15.3 (5-19); Aspartate Amino Transferase 17 U/L (0-32); Blood Urea Nitrogen 21 mg/dL (8-23); Calcium 8.5 mg/dL (8.5-10.5); Carbon Dioxide 23 mmol/L (22-29); Chloride 105 mmol/L (98-107); Globulin 2.7 g/dL (1.3-4.6); Glucose 161 mg/dL (65-115); Osmolality Calculated 292 mOsm/kg (285-295); Potassium 5.3 mmol/L (3.5-5.1); Sodium 138 mmol/L (136-145); Total Bilirubin 0.3 mg/dL (0.15-1.2); Total Protein 6.8 g/dL (6.6-8.7)
[2020-03-07 20:36] LABS: Troponin(5th) Baseline 25 ng/L (0-10)
--- NOTE | 2020-03-07 21:35 | PC.NURSE ---
Dr Bell aware of pt pulse rate down to 31. Pt is alert, oriented, no acute distress. No new orders
--- NOTE | 2020-03-07 21:53 | ECG_ITS ---
[facility] Test Date: 2020-03-07 Pat Name: Denia Price Department: Room: 112 Gender: Female Dietetics Director: CHRISTINA : 1935 Requested By: Naty Martinez Order Number: [id number] Yulia MD: Savanna Davis M.D. Measurements Intervals [place] Rate: 41 P: NE: -1 QRS: -23 QRSD: 137 T: 7 QT: 574 QTc: 478 Interpretive Statements ATRIAL FIBRILLATION WITH SLOW VENTRICULAR RESPONSE LEFT BUNDLE BRANCH BLOCK [120+ ms QRS DURATION, 80+ ms Q/S IN V1/V2, 85+ ms R IN I/aVL/V5/V6] Compared to ECG 01/29/2020 03:20:32 No significant changes Electronically Signed On 03-09-2020 20:53:30 CDT by Savanna Davis M.D. [id number] f
[2020-03-07 22:39] LABS: Troponin 5 2HR 24.25 ng/L (0-10)
[2020-03-07 22:40] LABS: Troponin 5 2HR Delta -0.75 ABS# (0-10)
--- NOTE | 2020-03-07 23:22 | PM.HP ---
Providers/Chief Complaint Admitting Physician: Wilfredo Aponte MD Primary Care Provider: Nicol Hopkins, ELECTROPLATING SALES REPRESENTATIVE-C Chief Complaint: BRADYCARDIA History of Present Illness Denia Price is a 85 year old female with a past medical history of CAD with severely depressed ejection fraction of 36%, COPD, CHF systolic type, atrial fibrillation on Eliquis and amiodarone 100 mg daily, diabetes, hyperlipidemia, hypertension, PAD, who presents to [facility] due to complaints of lightheadedness, dizziness, and feeling deathly ill. Patient tells me that this evening, she was getting ready to climb the stairs, she took about a step, and felt lightheaded and dizzy, she then stopped, was able to make it to the living room and sat down, and she suddenly felt deathly ill, lightheaded, dizzy, no chest pain, no palpitations. She called her daughter, who advised her to come to the emergency room. In the emergency room, patient was found to have sinus bradycardia heart rate in the 30s. Review of patient's exact care PACS show that she is still taking verapamil 240 mg daily. I called her daughter, and confirmed with the exact care packs that she has at home. Review of Systems Const: Denies: fever(s), chills, fatigue or malaise Eyes: Denies: change in vision or blurry vision ENMT: Denies: nasal congestion Card: Reports: lightheadedness and pre-syncope; Denies: chest pain or palpitations Resp: Denies: dyspnea, productive cough, non-productive cough or wheezing GI: Denies: abdominal pain, nausea, vomiting, hematemesis, diarrhea, constipation, hematochezia or melena : Denies: flank pain, dysuria or urinary frequency Musc: Denies: neck pain or back pain Skin/Breast: Denies: rash Neuro: Denies: headache(s), dizziness or vertigo Psych: Denies: anxiety or depression Endo: Denies: polyuria or polydipsia Medications/Allergies Home Medications Medication Instructions Recorded Confirmed Last Taken Type budesonide 0.5 mg/2 mL suspension 0.5 mg INHALATION BID 07/03/19 03/07/20 03/07/20 12:00 History for nebulization formoterol fumarate 20 mcg/2 mL 2 ml INHALATION BID 07/03/19 03/07/20 03/07/20 12:00 History solution for nebulization nitroglycerin 0.4 mg sublingual 0.4 mg SUBLINGUAL Q5M PRN 07/03/19 03/07/20 Unknown History tablet lidocaine 5 % topical patch 1 patch TOPICAL DAILY #30 each 08/06/19 03/07/20 Unknown Rx rosuvastatin 40 mg tablet 40 mg PO DAILY #90 tab 08/28/19 03/07/20 03/06/20 20:00 Rx magnesium L-lactate 84 mg 84 mg PO DAILY #30 tab 11/03/19 03/07/20 03/06/20 08:00 Rx tablet,extended release montelukast 10 mg tablet 10 mg PO DAILY #30 tab 01/08/20 03/07/20 03/07/20 08:00 Rx duloxetine 30 mg capsule,delayed 30 mg PO BID #60 cap 01/14/20 03/07/20 03/07/20 08:00 Rx release potassium chloride 20 mEq 20 meq PO DAILY #90 tab 01/14/20 03/07/20 03/07/20 08:00 Rx tablet,extended release topiramate 25 mg tablet 25 mg PO BID #60 tab 01/14/20 03/07/20 03/07/20 09:00 Rx isosorbide mononitrate 15 mg PO DAILY #90 tab 01/24/20 03/07/20 03/07/20 08:00 Rx famotidine 40 mg PO DAILY 01/28/20 03/07/20 03/07/20 08:00 History furosemide [Lasix] 20 mg PO DAILY #30 tab 01/31/20 03/07/20 03/07/20 08:00 Rx amiodarone 100 mg tablet 100 mg PO DAILY #90 tab 02/13/20 03/07/20 03/07/20 08:00 Rx apixaban [Eliquis] 5 mg PO DAILY 03/07/20 03/07/20 03/07/20 08:00 History clopidogrel [Plavix] 75 mg PO DAILY 03/07/20 03/07/20 03/07/20 08:00 History metoprolol tartrate [Lopressor] 50 mg PO BID 03/07/20 03/07/20 03/07/20 08:00 History Allergies Allergy/AdvReac Type Severity Reaction Status Date / Time cetirizine Allergy Unknown Verified 03/07/20 19:48 codeine Allergy Unknown Verified 03/07/20 19:48 hydromorphone [From Dilaudid] Allergy ADR-Confusion Verified 03/07/20 19:48 and mean naproxen Allergy Unknown Verified 03/07/20 19:48 Penicillins Allergy ALGY-Hives Verified 03/07/20 19:48 Sulfa (Sulfonamide Allergy Unknown Verified 03/07/20 19:48 Antibiotics) tramadol Allergy Unknown Verified 03/07/20 19:48 PFSH Acute PFSH: Medical History Asthma 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 Atrial fibrillation Atrial fibrillation CAD (coronary artery disease) -antiplatelets on hold for now in case of need for procedure -BB on hold due to bradycardia; on statin CHF (congestive heart failure) -no acute exacerbation currently -Echo as noted above Chronic anticoagulation COPD (chronic obstructive pulmonary disease) -no acute exacerbation -CXR noted -supplemental oxygen as needed; uses 3 L O2 qhs Diabetes GERD (gastroesophageal reflux disease) History of [place] (myocardial infarction) Hyperlipidemia -on statin Hypertension -normotensive; continue to monitor vitals PAD (peripheral artery disease) Post-herpetic polyneuropathy (~05/2019) SVT (supraventricular tachycardia) Systolic heart failure Surgical History History of hysterectomy Hx of CABG S/P CABG x 3 Family History Other CAD (coronary artery disease) Cancer Hypertension Social History Smoking and tobacco status: never smoked Second hand smoke exposure: No Smoking risk assessment/counseling performed?: No Alcohol intake: never Desire information about alcohol rehabilitation?: No Counseling given: No Desire information about substance/drug rehabilitation?: No Counseling given: No Adopted: No Caregiver/support person: No Lives independently: Yes Household members: family Housing: House Marital status: / Number of children: 4 Current occupational status: retired History of recent travel: No Current gender identity: Female Vitals/I&O/Wt Last Vital Signs Temp 97.4 F L 03/07/20 21:00 Pulse 42 L 03/07/20 22:46 Resp 16 03/07/20 22:46 BP 116/59 03/07/20 22:46 Pulse Ox 99 03/07/20 22:46 Weight last 48 hrs Weight 77.111 kg Physical Exam Const: COMMON NORMALS: no acute distress and patient oriented x3 GENERAL APPEARANCE: cooperative and comfortable HENMT: COMMON NORMALS: normocephalic HEAD & SCALP: normocephalic Eye: COMMON NORMALS: Equal, round and reactive pupils present and EOMs intact bilaterally GENERAL EYE: appearance normal, both eyes and all related structures PUPIL: Yes Equal, round and reactive pupils present Neck/C-Spine: COMMON NORMALS: full ROM, no lymphadenopathy, no JVD and Thyroid normal THYROID: Thyroid normal Lymph: LYMPHATIC: no lymphadenopathy noted Resp: COMMON NORMALS: normal respiratory effort, No retractions, No use of accessory muscles and clear to auscultation bilaterally AUSCULTATION: clear to auscultation bilaterally Cardio: COMMON NORMALS: no JVD, regular rate, regular rhythm, S1 normal heart sound present, S2 normal heart sound present, No gallops present (Cardio), No clicks present (Cardio) and No murmurs present (Cardio) RATE: regular rate RHYTHM: regular rhythm HEART SOUNDS: S1 normal heart sound present and S2 normal heart sound present GI: COMMON NORMALS: Normal to inspection, nondistended, normoactive bowel sounds present, Soft to palpation, non-tender and No hepatosplenomegaly present PALPATION: Yes Soft to palpation and Yes No hepatosplenomegaly present Extremity: COMMON NORMALS: normal to inspection, full ROM and no pedal edema Neuro: COMMON NORMALS: patient oriented x3, CN's II-XII intact bilaterally, moves all extremities and no focal motor deficits Psych: COMMON NORMALS: mental status grossly normal, Normal thought process present and cooperative THOUGHT PROCESS: Normal thought process present Data : 03/07/20 20:06 03/07/20 20:06 A&P Assessment and plan (1) Bradycardia: -Likely secondary to polypharmacy, interaction of verapamil and amiodarone -On her previous admission, she was noted to have bradycardia on metoprolol and amiodarone, metoprolol was stopped, amiodarone dose was decreased to 100 mg daily -Still has verapamil and her [facility] packs -There is a possibility that she could be having sinus node dysfunction -EKG shows sinus bradycardia, no AV block Plan: -Admit to cardiac stepdown unit -Continue telemetry monitoring -Hold amiodarone -PRN atropine -Serial EKGs, serial troponins, on statin, Plavix, Eliquis -Cardiology has been consulted -Full code -Eliquis for DVT prophylaxis Status: Acute (2) Polypharmacy: Status: Acute (3) Atrial fibrillation: -Hold amiodarone continue Eliquis 5 mg twice daily Status: Chronic Qualifiers: Atrial fibrillation type: unspecified Qualified Code(s): I48.91 - Unspecified atrial fibrillation (4) Systolic heart failure: Status: Acute Qualifiers: Heart failure chronicity: acute on chronic Qualified Code(s): I50.23 - Acute on chronic systolic (congestive) heart failure (5) Asthma 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: Status: Chronic (6) Hyperlipidemia: Status: Inactive Qualifiers: Hyperlipidemia type: unspecified Qualified Code(s): E78.5 - Hyperlipidemia, unspecified (7) COPD (chronic obstructive pulmonary disease): Status: Inactive Qualifiers: COPD type: unspecified COPD Qualified Code(s): J44.9 - Chronic obstructive pulmonary disease, unspecified (8) CHF (congestive heart failure): Status: Inactive Qualifiers: Heart failure type: systolic Heart failure chronicity: chronic Qualified Code(s): I50.22 - Chronic systolic (congestive) heart failure (9) CAD (coronary artery disease): Status: Inactive Qualifiers: Coronary Disease-Associated Artery/Lesion type: [place] artery [place] vs. transplanted heart: [place] heart Associated angina: angina presence unspecified Qualified Code(s): I25.10 - Atherosclerotic heart disease of [place] coronary artery without angina pectoris (10) KYLE (acute kidney injury): -Creatinine 1.6, hold IV hydration given history of heart failure, monitor creatinine, monitor urine output Status: Acute Attestations Medical Necessity Statement*: Patient requires hospitalization, outpatient with observation, for bradycardia Coding Level of Care Code Acute Scheduling Clerk for [facility] Fw Diagnoses Bradycardia R00.1 Polypharmacy Z79.899 Atrial fibrillation I48.91 Atrial fibrillation type: unspecified Systolic heart failure I50.23 Heart failure chronicity: acute on chronic Asthma 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 J45.909; Z79.51 Hyperlipidemia E78.5 Hyperlipidemia type: unspecified COPD (chronic obstructive pulmonary disease) J44.9 COPD type: unspecified COPD CHF (congestive heart failure) I50.22 Heart failure type: systolic Heart failure chronicity: chronic CAD (coronary artery disease) I25.10 Coronary Disease-Associated Artery/Lesion type: [place] artery [place] vs. transplanted heart: [place] heart Associated angina: angina presence unspecified KYLE (acute kidney injury) N17.9
[2020-03-08] VITALS (10 sets, daily range): BP systolic 101–190; BP diastolic 53–91; PULSE 45–102; RESP 16–19; TEMP 36.6–36.8; O2SAT 92–99
--- NOTE | 2020-03-08 01:03 | PC.NURSE ---
Patient received to floor at 03/07/20 at 2320. Patient able to ambulate (shuffle) with 2 assist to bed. Patient c/o mild dizziness. Patient reports using home O2 at 3L NC which was started on patient on admission. Patient denies pain. No distresses observed. Med Rec completed. Admission completed as documented.
[2020-03-08 03:44] LABS: Estmated Average Glucose 131; Hemoglobin A1C 6.2 % (4.0-6.0)
[2020-03-08 04:36] LABS: Basophils # 0.1 10^3/uL (0.0-0.1); Basophils % 0.5 %; Eosinophils % 0.4 %; Hematocrit 39.8 % (37.0-47.0); Hemoglobin 12.3 g/dL (11.5-15.3); Lymphocytes # 2.3 10^3/uL (0.8-4.8); Lymphocytes % 22.4 %; Mean Corpuscular HGB Conc 30.9 g/dL (30.0-36.0); Mean Corpuscular Hemoglobin 28.7 pg (28.0-34.0); Mean Platelet Volume 11.9 fL (7.4-10.4); Monocytes # 1.3 10^3/uL (0.2-0.9); Monocytes % 12.1 %; Neutrophils # 6.55 10^3/uL (1.8-7.7); Neutrophils % 63.7 %; Nucleated Red Blood Cells % 0 %; Platelet Count 177 10^3/cmm (130-400); Red Blood Count 4.28 10^6/uL (4.1-5.3); Red Cell Distribution Width 13.8 % (12.1-15.1); White Blood Count 10.3 10^3/uL (4.0-10.0)
[2020-03-08 05:04] LABS: Troponin 5 6HR 22.54 ng/L (0-10)
[2020-03-08 05:13] LABS: Alanine Aminotransferase 9 U/L (0-33); Albumin Level 4.3 g/dL (3.5-5.2); Alkaline Phosphatase 115 IU/L (35-105); Aspartate Amino Transferase 18 U/L (0-32); Blood Urea Nitrogen 25 mg/dL (8-23); Calcium 9.1 mg/dL (8.5-10.5); Carbon Dioxide 22 mmol/L (22-29); Chloride 105 mmol/L (98-107); Globulin 2.4 g/dL (1.3-4.6); Glucose 121 mg/dL (65-115); Magnesium 2.3 mg/dL (1.7-2.3); Osmolality Calculated 292 mOsm/kg (285-295); Phosphorus 5.7 mg/dL (2.5-4.5); Sodium 138 mmol/L (136-145); Thyroid Stimulating Hormone 7.09 uIU/mL (0.27-4.20); Total Bilirubin 0.4 mg/dL (0.15-1.2); Total Protein 6.7 g/dL (6.6-8.7)
[2020-03-08 05:17] LABS: Anion Gap 15.8 (5-19); Potassium 4.8 mmol/L (3.5-5.1)
--- NOTE | 2020-03-08 09:10 | PC.NURSE ---
Confusion, restlessness noted Pt is disoriented to time and day. She is up and about, looking for a basket. SHe pulled her IV. cath tip intact. notified doctor in person.
[2020-03-08 09:20] LABS: Glucose Point of Care 95 mg/dL (70-110)
[2020-03-08] MEDS: ipratropium-albuterol 3 mL Neb INHALATION ×2 (09:53→20:36)
[2020-03-08] MEDS: budesonide 0.5 mg/2 mL Neb INHALATION ×2 (09:53→20:36)
[2020-03-08] MEDS: montelukast sodium 10 mg Tablet PO (10:44)
[2020-03-08] MEDS: famotidine 20 mg Tablet 40 MG PO (10:45)
[2020-03-08] MEDS: duloxetine 30 mg Capsule PO ×2 (10:46→18:25)
[2020-03-08] MEDS: atorvastatin 40 mg Tablet 80 MG PO (10:47)
[2020-03-08] MEDS: magnesium lactate 84 mg Tablet PO (10:47)
[2020-03-08 11:37] LABS: Add Urine Microscopic? YES; Bilirubin Urine Neg (Negative); Blood Urine Neg (Negative); Glucose Urine UA Norm (Normal); Ketones Urine Negative (Negative); Leukocyte Esterase Urine Negative (Negative); Nitrate Urine Negative (Negative); Protein Urine 1+ (Negative); Specific Gravity, Urine 1.015 (1.005-1.030); Urine Appearance Clear (CLEAR); Urine Color Yellow (Yellow); Urobilinogen Urine Norm (Negative); pH Urine 5 (5-7)
[2020-03-08 11:43] LABS: WBC Urine RARE /hpf (0-5)
[2020-03-08 11:44] LABS: Bacteria Urine 1+ /hpf; Fine Granular Casts Urine 0-4 /lpf; Mucus Urine TRACE /hpf; Squamous Epithelial Cell Urine 0-4 /hpf (0-5)
[2020-03-08 11:45] LABS: Add Urine Culture? No
--- NOTE | 2020-03-08 13:50 | P.CONIM_ITS ---
Providers/Reason For Consult Consulting Physican/Specialty*: Dr. Davis, cardiology Reason for Consult*: Presyncope and bradycardia Attending Physician: Dylan Butcher MD Primary Care Provider: JIL Izaguirre History of Present Illness History of Present Illness Denia Price is a 85 year old female with past medical history significant for coronary artery disease, CHF with moderately depressed ejection fraction 36%, COPD and atrial fibrillation presented with A. fib with slow ventricular response heart rate into 30s but stable vital bettencourt. C presented with complaints of lightheadedness dizziness and feeling ill. This happened yesterday evening and was unable to climb stairs and sat down and called her daughter to bring her to the ER. It seems like patient has still been taking verapamil 240 mg daily, even though this has not been listed as one of her medications and all her previous visits. So it seems like she was taking amiodarone 100 mg and verapamil 240 mg daily. Both of these were held on admission. I have been asked to evaluate the patient and see if she would need a permanent pacemaker placement. When I saw her this morning, patient is not having any symptoms and her heart rate has improved running 60s to 70s after about midnight yesterday. Review of Systems Const: Denies: fever(s), chills, change in weight, fatigue or malaise Eyes: Denies: change in vision or blurry vision ENMT: Denies: nasal congestion or epistaxis Card: Reports: lightheadedness and pre-syncope; Denies: chest pain, palpitations or dyspnea on exertion Resp: Denies: dyspnea, productive cough, non-productive cough or wheezing GI: Denies: abdominal pain, nausea, vomiting, hematemesis, diarrhea, constipation, hematochezia or melena : Denies: flank pain, dysuria, urinary frequency or hematuria Musc: Denies: neck pain, back pain or extremity swelling Skin/Breast: Denies: rash Neuro: Denies: headache(s), dizziness or vertigo Psych: Denies: anxiety or depression Endo: Denies: polyuria or polydipsia Shay/Lymph: Denies: petechiae or purpura All/Imm: Denies: facial swelling or acute wheezing Meds/Allergies Home Medications and Allergies Home Medications Medication Instructions Recorded Confirmed Last Taken Type budesonide 0.5 mg/2 mL suspension 0.5 mg INHALATION BID 07/03/19 03/07/20 03/07/20 12:00 History for nebulization formoterol fumarate 20 mcg/2 mL 2 ml INHALATION BID 07/03/19 03/07/20 03/07/20 12:00 History solution for nebulization nitroglycerin 0.4 mg sublingual 0.4 mg SUBLINGUAL Q5M PRN 07/03/19 03/07/20 Unknown History tablet lidocaine 5 % topical patch 1 patch TOPICAL DAILY #30 each 08/06/19 03/07/20 Unknown Rx rosuvastatin 40 mg tablet 40 mg PO DAILY #90 tab 08/28/19 03/07/20 03/06/20 20:00 Rx magnesium L-lactate 84 mg 84 mg PO DAILY #30 tab 11/03/19 03/07/20 03/06/20 08:00 Rx tablet,extended release montelukast 10 mg tablet 10 mg PO DAILY #30 tab 01/08/20 03/07/20 03/07/20 08:00 Rx duloxetine 30 mg capsule,delayed 30 mg PO BID #60 cap 01/14/20 03/07/20 03/07/20 08:00 Rx release potassium chloride 20 mEq 20 meq PO DAILY #90 tab 01/14/20 03/07/20 03/07/20 08:00 Rx tablet,extended release topiramate 25 mg tablet 25 mg PO BID #60 tab 01/14/20 03/07/20 03/07/20 09:00 Rx famotidine 40 mg PO DAILY 01/28/20 03/07/20 03/07/20 08:00 History amiodarone 100 mg tablet 100 mg PO DAILY #90 tab 02/13/20 03/07/20 03/07/20 08:00 Rx apixaban [Eliquis] 5 mg PO DAILY 03/07/20 03/07/20 03/07/20 08:00 History clopidogrel [Plavix] 75 mg PO DAILY 03/07/20 03/07/20 03/07/20 08:00 History furosemide 40 mg PO 06,12 03/07/20 03/07/20 03/07/20 12:00 History metoprolol tartrate [Lopressor] 50 mg PO BID 03/07/20 03/07/20 03/07/20 08:00 History verapamil 240 mg PO QAM 03/07/20 03/08/20 03/07/20 08:00 History isosorbide mononitrate 30 mg PO DAILY 03/08/20 03/07/20 03/07/20 08:00 History Allergies Allergy/AdvReac Type Severity Reaction Status Date / Time cetirizine Allergy Unknown Verified 03/07/20 19:48 codeine Allergy Unknown Verified 03/07/20 19:48 hydromorphone [From Dilaudid] Allergy ADR-Confusion Verified 03/07/20 19:48 and mean naproxen Allergy Unknown Verified 03/07/20 19:48 Penicillins Allergy ALGY-Hives Verified 03/07/20 19:48 Sulfa (Sulfonamide Allergy Unknown Verified 03/07/20 19:48 Antibiotics) tramadol Allergy Unknown Verified 03/07/20 19:48 Current Medications Current Medications Generic Name Dose Route Start Last Admin Trade Name Freq PRN Reason Stop Dose Admin Albuterol/Ipratropium 3 ml 03/08/20 06:17 03/08/20 09:53 Duoneb INHALATION 3 ml Q4H PRN Administration SHORTNESS OF BREATH Atorvastatin Calcium 80 mg 03/08/20 09:00 03/08/20 10:47 Lipitor PO 80 mg DAILY MICHELLE Administration Budesonide 0.5 mg 03/08/20 08:00 03/08/20 09:53 Pulmicort INHALATION 0.5 mg BID.RESPIRATORY MICHELLE Administration Clopidogrel Bisulfate 75 mg 03/08/20 09:00 03/08/20 10:35 Plavix PO Not Given DAILY MICHELLE Duloxetine HCl 30 mg 03/08/20 09:00 03/08/20 10:46 Cymbalta PO 30 mg BID MICHELLE Administration Famotidine 40 mg 03/08/20 09:00 03/08/20 10:45 Pepcid Tab PO 40 mg DAILY MICHELLE Administration Furosemide 20 mg 03/08/20 09:00 03/08/20 12:37 Lasix PO Not Given DAILY MICHELLE Magnesium Lactate 84 mg 03/08/20 09:00 03/08/20 10:47 Mag-Tab Sr PO 84 mg DAILY MICHELLE Administration Montelukast Sodium 10 mg 03/08/20 09:00 03/08/20 10:44 Singulair PO 10 mg DAILY MICHELLE Administration Non-Formulary Medication 2 ml 03/08/20 09:00 03/08/20 10:36 Formoterol Fumarate [Perforomist] INHALATION Not Given BID [facility] Potassium Chloride 20 meq 03/08/20 09:00 03/08/20 12:37 Klor-Con 10 PO Not Given DAILY [facility] Topiramate 25 mg 03/08/20 09:00 03/08/20 10:36 Topamax PO Not Given BID MICHELLE PFSH Acute PFSH: Medical History Asthma 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 Atrial fibrillation Atrial fibrillation CAD (coronary artery disease) -antiplatelets on hold for now in case of need for procedure -BB on hold due to bradycardia; on statin CHF (congestive heart failure) -no acute exacerbation currently -Echo as noted above Chronic anticoagulation COPD (chronic obstructive pulmonary disease) -no acute exacerbation -CXR noted -supplemental oxygen as needed; uses 3 L O2 qhs Diabetes GERD (gastroesophageal reflux disease) History of NM (myocardial infarction) Hyperlipidemia -on statin Hypertension -normotensive; continue to monitor vitals PAD (peripheral artery disease) Post-herpetic polyneuropathy (~05/2019) SVT (supraventricular tachycardia) Systolic heart failure Surgical History History of hysterectomy Hx of CABG S/P CABG x 3 Family History Other CAD (coronary artery disease) Cancer Hypertension Social History Smoking and tobacco status: never smoked Second hand smoke exposure: No Smoking risk assessment/counseling performed?: No Alcohol intake: never Desire information about alcohol rehabilitation?: No Counseling given: No Desire information about substance/drug rehabilitation?: No Counseling given: No Adopted: No Caregiver/support person: No Lives independently: Yes Household members: family Housing: House Marital status: / Number of children: 4 Current occupational status: retired History of recent travel: No Current gender identity: Female Vitals/I&O/Wt Last Vital Signs Temp 98.2 F 03/08/20 12:00 Pulse 70 03/08/20 12:00 Resp 18 03/08/20 12:00 BP 155/77 03/08/20 12:00 Pulse Ox 98 03/08/20 12:00 03/07/20 03/08/20 03/08/20 22:59 06:59 14:59 Intake Total 240 / 240 Output Total 350 / 350 Balance 240 / 240 -350 / -350 Weight last 48 hrs Weight 170 lb Physical Exam Const: COMMON NORMALS: no acute distress, patient oriented x3 and alert GENERAL APPEARANCE: cooperative, comfortable, well kempt and well hydrated HENMT: COMMON NORMALS: normocephalic, atraumatic, hearing grossly normal bilaterally, external ears normal and Normal external nose present HEAD & SCALP: normocephalic and atraumatic NOSE: Normal external nose present EXTERNAL EAR: Yes external ears normal Eye: COMMON NORMALS: Equal, round and reactive pupils present, EOMs intact bilaterally, conjunctivae normal and no scleral icterus GENERAL EYE: appearance normal, both eyes and all related structures ALIGNMENT: Yes alignment normal PERIORBITAL: periorbital findings normal EYELID: eyelids normal CONJUNCTIVA: Yes conjunctivae normal SCLERA: sclerae normal PUPIL: Yes Equal, round and reactive pupils present Neck/C-Spine: COMMON NORMALS: no lymphadenopathy, supple, no JVD and Thyroid normal GENERAL: Yes normal visual inspection, Yes trachea midline and No Mass present (neck) THYROID: Thyroid normal CAROTIDS: Yes normal carotid upstroke CERVICAL SPINE: Yes cervical ROM normal Lymph: LYMPHATIC: no lymphadenopathy noted Chest: COMMONS NORMALS: normal inspection of the chest and normal palpation of entire chest wall CHEST: Yes Symmetrical chest wall rise, No mass, No tenderness, No Surgical scars present (Chest) and No rash BREAST/AXILLA INSPECTION: Yes normal inspection of the axillae Resp: COMMON NORMALS: clear to auscultation bilaterally and percussion normal EFFORT & INSPECTION: Yes able to speak in complete sentences and No respiratory distress AUSCULTATION: clear to auscultation bilaterally, no crackles, no rales, no rhonchi, no wheezes and vesicular breath sounds PERCUSSION: percussion normal Cardio: COMMON NORMALS: no JVD, regular rate, regular rhythm, S1 normal heart sound present, S2 normal heart sound present and Peripheral pulses 2+ throughout PALPATION: normal PMI RATE: regular rate RHYTHM: regular rhythm HEART SOUNDS: S1 normal heart sound present, S2 normal heart sound present, no gallops and no murmurs BRUITS: no carotid bruits PERIPHERAL PULSES: Peripheral pulses 2+ throughout, radial pulses present, posterior tibial pulses present and dorsalis pedis present GI: COMMON NORMALS: Soft to palpation AUSCULTATION: Yes normoactive bowel sounds PALPATION: Yes Soft to palpation, No Tenderness to palpation present (GI), No Guarding due to palpation present (GI), No Rigid due to palpation, No Pulsatile mass present and No Ascites present PERCUSSION: tympanic to percussion Extremity: GENERAL: No calf tenderness, No clubbing, No cyanosis, Yes edema and No pallor Neuro: COMMON NORMALS: patient oriented x3, CN's II-XII intact bilaterally, no focal motor deficits, no sensory deficits noted and gait normal SENSORIUM/ORIENTATION: Yes alert Psych: COMMON NORMALS: Normal thought process present and speech normal APPEARANCE: Yes well kempt SPEECH: Yes normal speech MOOD & AFFECT: Yes euthymic mood THOUGHT PROCESS: Normal thought process present THOUGHT CONTENT: Yes Normal thought content present Skin: HAIR: normal NAILS: normal and no clubbing Data Other Data: Attestation for Other Data: I personally reviewed and interpreted the following: Other data: # TTE (01/24/20) CONCLUSIONS 1. Normal left ventricular cavity size. Mildly increased left ventricular wall thickness. Moderately decreased left ventricular systolic function. Left ventricular ejection fraction is estimated at 36 %. Moderate global hypokinesis. 2. Mild pulmonary hypertension with pulmonary artery pressure estimated at 39 mm Hg. 3. Mild aortic valve regurgitation. 4. No prior similar studies to compare. # EKg Atrial fibrillation with slow ventricular response A&P Assessment and plan (1) Bradycardia: Seems like patient was taking verapamil along with amiodarone 100 mg daily. -Overnight amiodarone and verapamil were held and her heart rate has improved and is currently running in 60s. -No indication for permanent pacemaker placement. EKG from office showed sinus rhythm with PACs with heart rate of 69 bpm and left bundle branch block on 02/27/20. -I will plan to start her on amiodarone 50 mg daily based on her heart rate later in the day/tomorrow. -She will benefit from event monitor on discharge. Status: Acute (2) Polypharmacy: Status: Acute (3) Atrial fibrillation: Given worsening renal function, restart Eliquis at 2.5 mg twice a day Status: Chronic Qualifiers: Atrial fibrillation type: unspecified Qualified Code(s): I48.91 - Unspecified atrial fibrillation (4) Systolic heart failure: Well compensated. Given KYLE will hold off on Lasix and potassium. Advised to increase p.o. fluid intake. Status: Acute Qualifiers: Heart failure chronicity: acute on chronic Qualified Code(s): I50.23 - Acute on chronic systolic (congestive) heart failure (5) KYLE (acute kidney injury): Status: Acute Additional A&P Information History of CAD status post CABG x3 Hypertension Gastroesophageal reflux disease History of supraventricular tachycardia Hyperlipidemia COPD Thank you for allowing me to participate in patient's care. Please feel free to call with questions or concerns. Consult Attestations Medical Necessity Statement: For management of bradycardia and KYLE. Coding Level of Care Code Acute Food Safety Scientist for [facility] Fwd Exam Comprehensive Diagnoses Bradycardia R00.1 Polypharmacy Z79.899 Atrial fibrillation I48.91 Atrial fibrillation type: unspecified Systolic heart failure I50.23 Heart failure chronicity: acute on chronic KYLE (acute kidney injury) N17.9
[2020-03-08] MEDS: apixaban 5 mg Tablet 2.5 MG PO ×2 (13:58→18:26)
[2020-03-08] MEDS: clopidogrel 75 mg Tablet PO (13:59)
--- NOTE | 2020-03-08 14:09 | ECG_ITS ---
[facility] Test Date: 2020-03-08 Pat Name: Denia Price Department: Room: 112 Gender: Female Speeder Operator: : 1935 Requested By: Savanna Davis Order Number: [id number] Yulia MD: Savanna Davis M.D. Measurements Intervals [place] Rate: 66 P: 77 AK: 151 QRS: -9 QRSD: 146 T: 114 QT: 456 QTc: 480 Interpretive Statements SINUS RHYTHM LEFT BUNDLE BRANCH BLOCK [120+ ms QRS DURATION, 80+ ms Q/S IN V1/V2, 85+ ms R IN I/aVL/V5/V6] Compared to ECG 03/07/2020 22:05:45 Atrial fibrillation no longer present Electronically Signed On 03-08-2020 18:22:49 CDT by Savanna Davis M.D. [id number]
[2020-03-08] MEDS: topiramate 25 mg Tablet PO (18:25)
--- NOTE | 2020-03-08 21:05 | PM.PN ---
Subjective Subjective: Interval history: Patient deny any,no dizziness, sob,chest pain. HR has remained above 60 since stopping verapamil and amiodarone.Have held lasix given worseing KYLE. It seems like patient has still been taking verapamil 240 mg daily, even though this has not been listed as one of her medications and all her previous visits. So it seems like she was taking amiodarone 100 mg and verapamil 240 mg daily. Both of these were held on admission. Vitals and labs reviewed Medications: Reviewed: Yes Vitals/I&O/Wt Last Vital Signs Temp 98.2 F 03/08/20 20:00 Pulse 66 03/08/20 20:37 Resp 16 03/08/20 20:37 BP 156/91 03/08/20 20:00 Pulse Ox 97 03/08/20 20:37 03/08/20 03/08/20 03/08/20 06:59 14:59 22:59 Intake Total 240 / 240 340 / 340 Output Total 350 / 350 Balance 240 / 240 -10 / -10 Weight last 48 hrs Weight 77.111 kg Physical Exam Const: COMMON NORMALS: patient oriented x3 HENMT: COMMON NORMALS: normocephalic, atraumatic, hearing grossly normal bilaterally and external ears normal HEAD & SCALP: normocephalic and atraumatic EXTERNAL EAR: Yes external ears normal Eye: COMMON NORMALS: no scleral icterus GENERAL EYE: appearance normal, both eyes and all related structures Chest: COMMONS NORMALS: normal inspection of the chest and normal palpation of entire chest wall CHEST: Yes Symmetrical chest wall rise Resp: COMMON NORMALS: normal respiratory effort, No retractions, No use of accessory muscles and clear to auscultation bilaterally EFFORT & INSPECTION: Yes symmetric chest movement AUSCULTATION: clear to auscultation bilaterally Cardio: COMMON NORMALS: regular rate, regular rhythm, S1 normal heart sound present, S2 normal heart sound present, No gallops present (Cardio), No murmurs present (Cardio), No rub (Cardio) and Peripheral pulses 2+ throughout RATE: regular rate RHYTHM: regular rhythm HEART SOUNDS: S1 normal heart sound present and S2 normal heart sound present PERIPHERAL PULSES: Peripheral pulses 2+ throughout GI: COMMON NORMALS: Normal to inspection, nondistended, normoactive bowel sounds present, Soft to palpation, non-tender, No hepatosplenomegaly present and no masses AUSCULTATION: Yes normoactive bowel sounds PALPATION: Yes Soft to palpation and Yes No hepatosplenomegaly present RECTAL EXAM: deferred Extremity: NARRATIVE EXTREMITY EXAM: No calf tenderness, No clubbing, No cyanosis, Yes edema and No pallor Neuro: COMMON NORMALS: patient oriented x3 Data : 03/08/20 04:08 03/08/20 04:08 A&P Assessment and plan (1) Bradycardia: Bradycardia: Seems like patient was taking verapamil along with amiodarone 100 mg daily. -Overnight amiodarone and verapamil were held and her heart rate has improved and is currently running in 60s. -No indication for permanent pacemaker placement. EKG from office showed sinus rhythm with PACs with heart rate of 69 bpm and left bundle branch block on 02/27/20. -I will plan to start her on amiodarone 50 mg daily based on her heart rate later in the day/tomorrow. -She will benefit from event monitor on discharge. Status: Acute (2) KYLE (acute kidney injury): Baseline SCR is 1 : Current SCR is 1.9. Continue to hold lasix. Gentle hydration. Monitor SCR. Status: Acute (3) Atrial fibrillation: Status: Chronic Qualifiers: Atrial fibrillation type: unspecified Qualified Code(s): I48.91 - Unspecified atrial fibrillation (4) Diabetes: Status: Chronic Qualifiers: Diabetes mellitus type: type 2 Diabetes mellitus usp insulin use: without case management director use Diabetes mellitus complication status: with kidney complications Diabetes mellitus complication detail: with chronic kidney disease Chronic kidney disease stage: stage 2 (mild) Qualified Code(s): E11.22 - Type 2 diabetes mellitus with diabetic chronic kidney disease; N18.2 - Chronic kidney disease, stage 2 (mild) (5) Systolic heart failure: Status: Acute Qualifiers: Heart failure chronicity: acute on chronic Qualified Code(s): I50.23 - Acute on chronic systolic (congestive) heart failure (6) PAD (peripheral artery disease): Status: Acute Additional A&P Information Code Status :Full Code DVT PPX: Eliquis Attestations Medical Necessity Statement*: Patient needs to be in hospital for the management of Bradycardia and KYLE. Coding Level of Care Code Acute Net Solutions Architect for [facility] Fw Diagnoses Bradycardia R00.1 KYLE (acute kidney injury) N17.9 Atrial fibrillation I48.91 Atrial fibrillation type: unspecified Diabetes E11.22; N18.2 Diabetes mellitus type: type 2 Diabetes mellitus case management director insulin use: without case management director use Diabetes mellitus complication status: with kidney complications Diabetes mellitus complication detail: with chronic kidney disease Chronic kidney disease stage: stage 2 (mild) Systolic heart failure I50.23 Heart failure chronicity: acute on chronic PAD (peripheral artery disease) I73.9
--- NOTE | 2020-03-08 21:09 | PC.NURSE ---
Patient currently answers correctly to person, place, time, and situation. Patient however is confused due to statements that do not make sense. Bed alarm is set. Call light is within reach. Patient has been educated not to get up without assistance. Will monitor.
[2020-03-08] MEDS: haloperidol inj 5 mg/mL INJ 1 mL 2 MG IM (23:30)
[2020-03-09] VITALS (7 sets, daily range): BP systolic 139–162; BP diastolic 61–69; PULSE 69–83; RESP 13–18; TEMP 36.6–36.7; O2SAT 93–97
--- NOTE | 2020-03-09 00:01 | PC.NURSE ---
Patient became very agitated stating my puppies are out there, I know you're lying to me. Patient became aggressive stating I want out of here right now and you can't stop me. Security called stat and doctor Fadi notified of patient's behavior. Security and warehouse analyst came to patient's room. Dr. Aponte ordered 2 mg Haldol IM. Patient refused this stating get away from me with that. Patient called her daughter on her personal cell phone who did not answer patient on first attempt. Patient states to this nurse I know you walked out there and did something to keep me from calling her. Patient is very paranoid. Daughter answered phone on second attempt. Daughter was unable to calm patient down. Patient then called her brother, telling him come get me out of here now. Brother of patient was able to calm her down over the phone. Brother states to this nurse they gave her some kind of medication at the hospital in [place] that made her do this exact same thing over there. Daughter states that in [place] they gave the patient Dilaudid at the hospital in [place] which caused her to be like this. Patient is calm at this time. Bed alarm is set. Patient's telemetry leads were removed and unable to get midnight vital signs due to agitation. Dr. Aponte notified of this.
--- NOTE | 2020-03-09 01:43 | PC.NURSE ---
Dr. Aponte came to see patient Patient is currently resting with eyes closed. Will monitor. Bed alarm is still set.
--- NOTE | 2020-03-09 04:04 | PC.NURSE ---
Addendum entered by Rena Wilkins RN 03/09/20 04:05: left AC, not right AC Original Note: Patient pulled IV out by accident. Catheter was intact. New IV started in right AC.
--- NOTE | 2020-03-09 04:38 | PC.NURSE ---
Patient states I'm sorry about earlier. Patient seems to be alert at this time. Will monitor. Bed alarm is still set.
[2020-03-09 05:51] LABS: Basophils % 0.3 %; Eosinophils # 0.1 10^3/uL (0.0-0.8); Eosinophils % 1.2 %; Hematocrit 35.4 % (37.0-47.0); Hemoglobin 10.7 g/dL (11.5-15.3); Lymphocytes # 1.4 10^3/uL (0.8-4.8); Lymphocytes % 21.3 %; Mean Corpuscular HGB Conc 30.2 g/dL (30.0-36.0); Mean Corpuscular Hemoglobin 28.3 pg (28.0-34.0); Mean Corpuscular Volume 93.7 fL (81-99); Mean Platelet Volume 11.5 fL (7.4-10.4); Monocytes # 0.8 10^3/uL (0.2-0.9); Monocytes % 11.7 %; Neutrophils # 4.42 10^3/uL (1.8-7.7); Neutrophils % 65.2 %; Nucleated Red Blood Cells % 0 %; Platelet Count 141 10^3/cmm (130-400); Red Blood Count 3.78 10^6/uL (4.1-5.3); Red Cell Distribution Width 13.5 % (12.1-15.1); White Blood Count 6.8 10^3/uL (4.0-10.0)
[2020-03-09 06:39] LABS: Alanine Aminotransferase 7 U/L (0-33); Albumin Level 3.5 g/dL (3.5-5.2); Alkaline Phosphatase 97 IU/L (35-105); Anion Gap 13.8 (5-19); Aspartate Amino Transferase 15 U/L (0-32); Blood Urea Nitrogen 22 mg/dL (8-23); Calcium 8.5 mg/dL (8.5-10.5); Carbon Dioxide 21 mmol/L (22-29); Chloride 110 mmol/L (98-107); Globulin 2.8 g/dL (1.3-4.6); Glucose 103 mg/dL (65-115); Magnesium 2.4 mg/dL (1.7-2.3); Osmolality Calculated 296 mOsm/kg (285-295); Phosphorus 3.2 mg/dL (2.5-4.5); Potassium 3.8 mmol/L (3.5-5.1); Sodium 141 mmol/L (136-145); Total Bilirubin 0.4 mg/dL (0.15-1.2); Total Protein 6.3 g/dL (6.6-8.7)
[2020-03-09] MEDS: ipratropium-albuterol 3 mL Neb INHALATION (08:09)
[2020-03-09] MEDS: budesonide 0.5 mg/2 mL Neb INHALATION (08:09)
[2020-03-09] MEDS: duloxetine 30 mg Capsule PO (09:40)
[2020-03-09] MEDS: magnesium lactate 84 mg Tablet PO (09:40)
[2020-03-09] MEDS: amlodipine 5 mg Tablet 2.5 MG PO (09:40)
[2020-03-09] MEDS: famotidine 20 mg Tablet 40 MG PO (09:40)
[2020-03-09] MEDS: apixaban 5 mg Tablet PO (09:41)
[2020-03-09] MEDS: topiramate 25 mg Tablet PO (09:41)
[2020-03-09] MEDS: montelukast sodium 10 mg Tablet PO (09:41)
[2020-03-09] MEDS: clopidogrel 75 mg Tablet PO (09:41)
[2020-03-09] MEDS: amiodarone 200 mg Tablet 50 MG PO (09:43)
--- NOTE | 2020-03-09 10:28 | P.PN_ITS ---
Subjective Subjective: Interval history: She feels well and denies any complaints. HR 60- 70's on telemetry Medications: Reviewed: Yes Medication Review Details: Current Medications Albuterol/Ipratropium (Duoneb) 3 ml INHALATION Q4H PRN PRN Reason: SHORTNESS OF BREATH Last Admin: 03/09/20 08:09 Dose: 3 ml Documented by: Amiodarone HCl (Cordarone) 50 mg PO DAILY [facility] Last Admin: 03/09/20 09:43 Dose: 50 mg Documented by: Amlodipine Besylate (Norvasc) 2.5 mg PO DAILY [facility] Last Admin: 03/09/20 09:40 Dose: 2.5 mg Documented by: Apixaban (Eliquis) 5 mg PO BID [facility] Last Admin: 03/09/20 09:41 Dose: 5 mg Documented by: Atorvastatin Calcium (Lipitor) 80 mg PO BEDTIME [facility] Atropine Sulfate (Atropine Syr) 0.5 mg IVP Q5MIN PRN PRN Reason: for HR<30 Budesonide (Pulmicort) 0.5 mg INHALATION BID.RESPIRATORY [facility] Last Admin: 03/09/20 08:09 Dose: 0.5 mg Documented by: Clopidogrel Bisulfate (Plavix) 75 mg PO DAILY [facility] Last Admin: 03/09/20 09:41 Dose: 75 mg Documented by: Duloxetine HCl (Cymbalta) 30 mg PO BID [facility] Last Admin: 03/09/20 09:40 Dose: 30 mg Documented by: Famotidine (Pepcid Tab) 40 mg PO DAILY [facility] Last Admin: 03/09/20 09:40 Dose: 40 mg Documented by: Magnesium Lactate (Mag-Tab Sr) 84 mg PO DAILY [facility] Last Admin: 03/09/20 09:40 Dose: 84 mg Documented by: Montelukast Sodium (Singulair) 10 mg PO DAILY [facility] Last Admin: 03/09/20 09:41 Dose: 10 mg Documented by: Non-Formulary Medication (Formoterol Fumarate [Perforomist]) 2 ml INHALATION BID [facility] Last Admin: 03/09/20 09:44 Dose: Not Given Documented by: Ondansetron HCl (Zofran) 4 mg IVP Q8H PRN PRN Reason: vomiting, or N/V if npo Topiramate (Topamax) 25 mg PO BID [facility] Last Admin: 03/09/20 09:41 Dose: 25 mg Documented by: Vitals/I&O/Wt Last Vital Signs Temp 97.8 F 03/09/20 07:31 Pulse 81 03/09/20 08:15 Resp 16 03/09/20 08:15 BP 152/69 03/09/20 07:31 Pulse Ox 97 03/09/20 08:15 03/08/20 03/09/20 03/09/20 22:59 06:59 14:59 Intake Total 100 / 440 Output Total 250 / 600 450 / 1050 Balance -250 / -260 -350 / -610 Weight last 48 hrs Weight 170 lb Physical Exam Const: COMMON NORMALS: no acute distress, patient oriented x3 and alert GENERAL APPEARANCE: cooperative, comfortable, well kempt and well hydrated HENMT: COMMON NORMALS: normocephalic, atraumatic, hearing grossly normal bilaterally, external ears normal and Normal external nose present HEAD & SCALP: normocephalic and atraumatic NOSE: Normal external nose present EXTERNAL EAR: Yes external ears normal Eye: COMMON NORMALS: Equal, round and reactive pupils present, EOMs intact bilaterally, conjunctivae normal and no scleral icterus GENERAL EYE: appearance normal, both eyes and all related structures ALIGNMENT: Yes alignment normal PERIORBITAL: periorbital findings normal EYELID: eyelids normal CONJUNCTIVA: Yes conjunctivae normal SCLERA: sclerae normal PUPIL: Yes Equal, round and reactive pupils present Neck/C-Spine: COMMON NORMALS: no lymphadenopathy, supple, no JVD and Thyroid normal GENERAL: Yes normal visual inspection, Yes trachea midline and No Mass present (neck) THYROID: Thyroid normal CAROTIDS: Yes normal carotid upstroke CERVICAL SPINE: Yes cervical ROM normal Lymph: LYMPHATIC: no lymphadenopathy noted Chest: COMMONS NORMALS: normal inspection of the chest and normal palpation of entire chest wall CHEST: Yes Symmetrical chest wall rise, No mass, No tenderness and No rash Resp: COMMON NORMALS: clear to auscultation bilaterally EFFORT & INSPECTION: Yes able to speak in complete sentences and No respiratory distress AUSCULTATION: clear to auscultation bilaterally, no crackles, no rales, no rhonchi, no wheezes and vesicular breath sounds Cardio: COMMON NORMALS: no JVD, regular rate, regular rhythm, S1 normal heart sound present, S2 normal heart sound present and Peripheral pulses 2+ throughout PALPATION: normal PMI RATE: regular rate RHYTHM: regular rhythm HEART SOUNDS: S1 normal heart sound present, S2 normal heart sound present, no gallops and no murmurs BRUITS: no carotid bruits PERIPHERAL PULSES: Peripheral pulses 2+ throughout, radial pulses present, posterior tibial pulses present and dorsalis pedis present GI: COMMON NORMALS: Soft to palpation AUSCULTATION: Yes normoactive bowel sounds PALPATION: Yes Soft to palpation, No Tenderness to palpation present (GI), No Guarding due to palpation present (GI) and No Rigid due to palpation Extremity: GENERAL: No calf tenderness, No clubbing, No cyanosis, No edema and No pallor Neuro: COMMON NORMALS: patient oriented x3, CN's II-XII intact bilaterally and no focal motor deficits SENSORIUM/ORIENTATION: Yes alert Psych: COMMON NORMALS: speech normal APPEARANCE: Yes well kempt SPEECH: Yes normal speech MOOD & AFFECT: Yes euthymic mood Skin: HAIR: normal NAILS: normal and no clubbing Data : 03/09/20 05:30 03/09/20 05:30 A&P Assessment and plan (1) Bradycardia: Seems like patient was taking verapamil along with amiodarone 100 mg daily. Metopolol was stopped in previous visit (Verapamil not listed as her home medication). -Overnight amiodarone and verapamil were held and her heart rate has improved and is currently running in 60s. -No indication for permanent pacemaker placement. EKG showed sinus rhythm and left bundle branch block. -I will plan to start her on amiodarone 50 mg daily. -She will benefit from event monitor x 3 weeks on discharge given recurrent hospitalization. -f/u with Dr. Vargas in [facility] in 1 month. Status: Acute (2) Polypharmacy: Status: Acute (3) Atrial fibrillation: Increase Eliquis to 5 mg twice a day, restart amiodarone at 50 mg daily. -No beta otto and no verapamil. Status: Chronic Qualifiers: Atrial fibrillation type: unspecified Qualified Code(s): I48.91 - Unspecified atrial fibrillation (4) Systolic heart failure: Well compensated. Given KYLE Lasix and potassium held. Advised to increase p.o. fluid intake. -renal function has improved. -Not on BB, ACEI/ARB presently. -will need to restart ACEI/ARB as outpatient based on renal function in 1 week. -May send her home on lasix 20 mg daily. -BMP in 1 week Status: Acute Qualifiers: Heart failure chronicity: acute on chronic Qualified Code(s): I50.23 - Acute on chronic systolic (congestive) heart failure (5) KYLE (acute kidney injury): improving Status: Acute Additional A&P Information History of CAD status post CABG x3 : On plavix and statin; Given advanced age she would be better off being on ASA with Eliquis. I will leave that to the discretion of her primary public service administrator. No recent intervention. Hypertension : Amlodipine for the time being for BP Gastroesophageal reflux disease History of supraventricular tachycardia Hyperlipidemia COPD Thank you for allowing me to participate in patient's care. Please feel free to call with questions or concerns. Attestations Medical Necessity Statement*: Seems stable to be discharged home later today. Coding Level of Care Code Acute Custom Miller for [facility] Fwd Exam Comprehensive Diagnoses Bradycardia R00.1 Polypharmacy Z79.899 Atrial fibrillation I48.91 Atrial fibrillation type: unspecified Systolic heart failure I50.23 Heart failure chronicity: acute on chronic KYLE (acute kidney injury) N17.9
--- NOTE | 2020-03-09 10:53 | PC.NURSE ---
Dr. roman updated on patient condition. Patient HR maintained 80-90s while ambulating. Patient tolerated well.
--- NOTE | 2020-03-09 11:48 | P.DS_ITS ---
Discharge Providers Date of Admission: 03/07/20 21:51 Date of Discharge: March 09, 2020 Attending Provider at Admission: Wilfredo Aponte MD Attending Provider at Discharge: Mihcael Azar MD Consults: Cardiology: Dr. Davis Primary Care Provider: JIL Izaguirre Diagnoses at Discharge Discharge Diagnosis (1) Bradycardia: Status: Acute (2) Polypharmacy: Status: Acute (3) Atrial fibrillation: Status: Chronic Qualifiers: Atrial fibrillation type: unspecified Qualified Code(s): I48.91 - Unspecified atrial fibrillation (4) Systolic heart failure: Status: Acute Qualifiers: Heart failure chronicity: acute on chronic Qualified Code(s): I50.23 - Acute on chronic systolic (congestive) heart failure (5) KYLE (acute kidney injury): Status: Acute Reason for Visit Reason for Visit: BRADYCARDIA Hospital Course Discharge Summary: Denia Price is a 85 year old female with past medical history significant for coronary artery disease, CHF with moderately depressed ejection fraction 36%, COPD and atrial fibrillation presented with A. fib with slow ventricular response heart rate into 30s but stable vital bettencourt. C presented with complaints of lightheadedness dizziness and feeling ill. This happened yesterday evening and was unable to climb stairs and sat down and called her daughter to bring her to the ER. It seems like patient has still been taking verapamil 240 mg daily, even though this has not been listed as one of her medications and all her previous visits. So it seems like she was taking amiodarone 100 mg and verapamil 240 mg daily. Both of these were held on admi ssion. She was admitted for symptomatic bradycardia with telemetry. She responded well to the treatment and her heart rate need more stable. Her medications were changed and now she supposed to on amiodarone 50 mg daily, Eliquis 5 mg twice daily, aspirin 81 mg daily. Medications including verapamil, Lasix, Plavix and metoprolol have been stopped. Medications were discussed in detail with her and family. Her heart rate remained stable on ambulation and at rest. On admission her creatinine was 1.6 most likely because of cardiogenic shock from bradycardia. Her creatinine continue to improve on day of discharge was 1.3. She has been discharged in medically stable condition with advised to follow-up with cardiology in 1 week and with primary care provider in 2 weeks. She is also advised to repeat her CMP in 2 weeks. Physical Exam Const: COMMON NORMALS: no acute distress and patient oriented x3 GENERAL APPEARANCE: cooperative and comfortable HENMT: COMMON NORMALS: normocephalic, atraumatic, hearing grossly normal bilaterally and external ears normal HEAD & SCALP: normocephalic and atraumatic EXTERNAL EAR: Yes external ears normal Eye: COMMON NORMALS: Equal, round and reactive pupils present, EOMs intact bilaterally and no scleral icterus GENERAL EYE: appearance normal, both eyes and all related structures PUPIL: Yes Equal, round and reactive pupils present Neck/C-Spine: COMMON NORMALS: full ROM, no lymphadenopathy, no JVD and Thyroid normal THYROID: Thyroid normal Lymph: LYMPHATIC: no lymphadenopathy noted Chest: COMMONS NORMALS: normal inspection of the chest and normal palpation of entire chest wall CHEST: Yes Symmetrical chest wall rise Resp: COMMON NORMALS: normal respiratory effort, No retractions, No use of accessory muscles and clear to auscultation bilaterally EFFORT & INSPECTION: Yes symmetric chest movement AUSCULTATION: clear to auscultation bilaterally Cardio: COMMON NORMALS: no JVD, regular rate, regular rhythm, S1 normal heart sound present, S2 normal heart sound present, No gallops present (Cardio), No clicks present (Cardio), No murmurs present (Cardio), No rub (Cardio) and Peripheral pulses 2+ throughout RATE: regular rate RHYTHM: regular rhythm HEART SOUNDS: S1 normal heart sound present and S2 normal heart sound present PERIPHERAL PULSES: Peripheral pulses 2+ throughout GI: COMMON NORMALS: Normal to inspection, nondistended, normoactive bowel sounds present, Soft to palpation, non-tender, No hepatosplenomegaly present and no masses AUSCULTATION: Yes normoactive bowel sounds PALPATION: Yes Soft to palpation and Yes No hepatosplenomegaly present RECTAL EXAM: deferred Extremity: COMMON NORMALS: normal to inspection, full ROM, no clubbing, cyanosis or edema and no pedal edema NARRATIVE EXTREMITY EXAM: No calf tenderness, No clubbing, No cyanosis, Yes edema and No pallor Neuro: COMMON NORMALS: patient oriented x3, CN's II-XII intact bilaterally, moves all extremities and no focal motor deficits Psych: COMMON NORMALS: mental status grossly normal, Normal thought process present and cooperative THOUGHT PROCESS: Normal thought process present Discharge Data Data Completed and Pending: Pending at discharge Category Date Time Status Complete Blood Co unt w/Auto AM LABS Lab 03/10/20 04:00 Ordered Comprehensive Met abolic Panel AM LA BS Lab 03/10/20 04:00 Ordered Magnesium AM LABS Lab 03/10/20 04:00 Ordered Phosphorus AM LAB S Lab 03/10/20 04:00 Ordered Labs from last 24 hours 03/09/20 03/09/20 05:30 05:30 WBC 6.8 RBC 3.78 L Hgb 10.7 L Hct 35.4 L MCV 93.7 MCH 28.3 MCHC 30.2 RDW 13.5 Plt Count 141 MPV 11.5 H Neut % (Auto) 65.2 Lymph % (Auto) 21.3 [place] % (Auto) 11.7 Eos % (Auto) 1.2 Baso % (Auto) 0.3 Neut # (Auto) 4.42 Lymph # (Auto) 1.4 [place] # (Auto) 0.8 Eos # (Auto) 0.1 Baso # (Auto) 0.0 Nucleated RBC % (a uto) 0 Nucleated RBCs # 0.0 Sodium 141 Potassium 3.8 Chloride 110 H Carbon Dioxide 21 L Anion Gap 13.8 BUN 22 Creatinine 1.3 H GFR Calculation Not Reportable Glucose 103 Calculated Osmolal ity 296 H Calcium 8.5 Phosphorus 3.2 Magnesium 2.4 H Total Bilirubin 0.4 AST 15 ALT 7 Alkaline Phosphata se 97 Total Protein 6.3 L Albumin 3.5 Globulin 2.8 Vitals: Last Vital Signs Temp 97.9 F 03/09/20 11:13 Pulse 74 03/09/20 11:13 Resp 18 03/09/20 11:13 BP 139/61 03/09/20 11:13 Pulse Ox 95 03/09/20 11:13 Discharge Plan Discharge Patient Disposition: Home Condition: Stable Prescriptions: New Eliquis 5 mg Tablet 5 mg PO BID Qty: 60 RF: 0 aspirin 81 mg tablet,delayed release (DR/EC) 81 mg PO DAILY Qty: 20 RF: 0 Continued Lidoderm 5 % adhesive patch,medicated 1 patch TOPICAL DAILY Qty: 30 RF: 2 nitroglycerin [Nitrostat] 0.4 mg tablet, sublingual 0.4 mg SUBLINGUAL Q5M PRN (Reason: CHEST PAINS) RF: 0 Perforomist 20 mcg/2 mL solution for nebulization 2 ml INHALATION BID RF: 0 rosuvastatin 40 mg tablet 40 mg PO DAILY Qty: 90 RF: 3 magnesium L-lactate [Magtab] 84 mg tablet extended release 84 mg PO DAILY Qty: 30 RF: 5 montelukast [Singulair] 10 mg tablet 10 mg PO DAILY Qty: 30 RF: 2 duloxetine [Cymbalta] 30 mg capsule,delayed release(DR/EC) 30 mg PO BID Qty: 60 RF: 2 topiramate 25 mg tablet 25 mg PO BID Qty: 60 RF: 2 potassium chloride 20 mEq tablet extended release 20 meq PO DAILY Qty: 90 RF: 0 famotidine 40 mg tablet 40 mg PO DAILY RF: 0 isosorbide mononitrate 30 mg tablet extended release 24 hr 30 mg PO DAILY RF: 0 Pulmicort 0.5 mg/2 mL suspension for nebulization 0.5 mg INHALATION BID Qty: 14 RF: 0 Changed furosemide 40 mg Tablet 20 mg PO DAILY Qty: 0 RF: 0 amiodarone 100 mg tablet 50 mg PO DAILY Qty: 90 RF: 2 Discontinued clopidogrel [Plavix] 75 mg Tablet 75 mg PO DAILY RF: 0 metoprolol tartrate [Lopressor] 50 mg Tablet 50 mg PO BID RF: 0 Eliquis 5 mg Tablet 5 mg PO DAILY RF: 0 verapamil 240 mg Tablet Extended Release 240 mg PO QAM RF: 0 Discharge Orders: Discharge Order (Routine); Ordered 03/09/20 Ordered By: Michael Azar Referrals: Nicol Hopkins FNP-C [Primary Care Provider] - 03/23/20 10:00 am (You have a hospital followup with STANLEY Howard at [facility] on March 23 at 10:00am) Gypsy Ortiz FNP [Nurse Practitioner] - 4-7 days (You have a cardiology followup the STANLEY Herbert at [facility] on March 16 at 10:45) Patient Instructions: Atrial Fibrillation, Bradycardia, Dizziness, Aspirin (By mouth), Apixaban (By mouth), Acute Kidney Injury (DC), CHF Stoplight Activity Restrictions/Additional Instructions: Medications including Lopressor, Plavix, verapamil has been stopped. Dose of Eliquis have been increased to 5 mg twice daily. Aspirin has been administered of Plavix. Dose of amiodarone has been changed to 50 mg daily and Lasix has been changed to 20 mg daily. Please follow-up with manager sap within next 1 week. Please repeat CMP in 2 weeks and follow-up with a primary care provider. Discharge Date/Time: 03/09/20 13:50 Discharge Attestations Time Spent in Discharge Care*: greater than 30 min Specific Discharge Activities: Specific discharge activities: educating patient, discussing with pcp/other providers, discussing with caser in/social workers/dc planners, documenting/other paperwork and evaluating patient/reviewing data Status at Discharge: Cognitive status at discharge: mildly impaired cognition , Behavioral status at discharge: cooperative , Functional status at discharge: independent ambulation Overall status at discharge: patient is progressing back to baseline Quality Metrics Clinical Quality Measures During this hospital stay, did patient experience: None Coding Level of Care Code Acute City Marshal for [facility] Fwd Exam Comprehensive Diagnoses Bradycardia R00.1 Polypharmacy Z79.899 Atrial fibrillation I48.91 Atrial fibrillation type: unspecified Systolic heart failure I50.23 Heart failure chronicity: acute on chronic KYLE (acute kidney injury) N17.9
--- NOTE | 2020-03-09 13:50 | PC.NURSE ---
Discharge instructions given per physician's orders. Patient verbalized understanding of teaching and did not have any further questions. Discharge teaching also called to patient's daughter per Dr. Azar's verbal order, verbalized understanding no further questions. IV has been removed. Patient dressed. No further needs identified.
--- NOTE | 2020-03-09 14:47 | PC.RESP ---
PULMONARY REHAB INFORMATION SENT TO PATIENT.
== END 2020-03-09 13:50 | disposition home or self-care (01) ==
LOC: ER 20:03 → CSU 22:34
PROVIDERS: Internal Medicine; Admitting Provider Family Medicine; Emergency Provider Emergency Medicine; PCP Nurse Practitioner; Visit Provider Student in an Organized Health Care Education/Training Program
DX: R00.1 Bradycardia, unspecified (principal); Z79.899 Other long term (current) drug therapy; I48.91 Unspecified atrial fibrillation; I50.23 Acute on chronic systolic (congestive) heart failure; J45.909 Unspecified asthma, uncomplicated; Z79.01 Long term (current) use of anticoagulants; I25.10 Atherosclerotic heart disease of native coronary artery without angina pectoris; J44.9 Chronic obstructive pulmonary disease, unspecified; N17.9 Acute kidney failure, unspecified; I25.2 Old myocardial infarction; Z95.1 Presence of aortocoronary bypass graft; Z79.51 Long term (current) use of inhaled steroids; E11.22 Type 2 diabetes mellitus with diabetic chronic kidney disease; N18.2 Chronic kidney disease, stage 2 (mild); I73.9 Peripheral vascular disease, unspecified
CPT/HCPCS: 12345; 36415; 36416; 80053; 81001; 82962; 83036; 83735; 84100; 84443; 84484; 85025; 85610; 93005; 94640; 94664; 96360; 96372; 99283; 99285; G0378; J1630; J7626

== ENCOUNTER → 2020-03-16 12:11 | Outpatient (BNVA) | payer MEDICARE, SELFPAY | PROVIDERS: PCP Nurse Practitioner; Visit Provider Nurse Practitioner Family | DX: I48.91 Unspecified atrial fibrillation (principal); N17.9 Acute kidney failure, unspecified; R00.1 Bradycardia, unspecified | CPT/HCPCS: 80048 ==

== ENCOUNTER 2020-05-23 16:07 | Observation (INO) | payer MEDICARE, SELFPAY ==
[2020-05-23 16:14] VITALS: BP 103/70; PULSE 104; RESP 18; TEMP 36; O2SAT 93; BMI 30.3
--- NOTE | 2020-05-23 16:31 | XRR_ITS ---
PROCEDURE INFORMATION: Exam: XR Chest, 1 View Exam date and time: 05/23/2020 4:32 PM Age: 85 years old Clinical indication: Dyspnea; Additional info: SOB TECHNIQUE: Imaging protocol: XR of the chest Views: 1 view. COMPARISON: CR XR chest 1V portable [id number] 01/28/2020 10:22 PM FINDINGS: Lungs: There is mild prominence of the central pulmonary vasculature with increased linear and hazy opacities present in the mid and lower hemithoraces, findings that may represent pulmonary edema. Pleural space: The hemidiaphragms are obscured secondary to small bilateral pleural effusions. Heart/Mediastinum: Unremarkable. No cardiomegaly. Bones/joints: Unremarkable. Soft tissues: There are bilateral axillary and brachial artery stents. XR/XR chest 1V portable [id number] IMPRESSION: Mild prominence of the central pulmonary vasculature, increased linear and hazy opacities in the mid lower hemithoraces in bilateral pleural effusions, findings suggesting pulmonary edema. Superimposed bilateral basilar interstitial pneumonia cannot be entirely excluded.
--- NOTE | 2020-05-23 18:32 | ECG_ITS ---
[facility] Test Date: 2020-05-23 Pat Name: Denia Price Department: Room: Gender: Female Car Loader: : 1935 Requested By: Oma Guallpa Order Number: [id number] Yulia MD: Jah Chong M.D. Measurements Intervals [place] Rate: 113 P: [place]: QRS: 3 QRSD: 132 T: 85 QT: 367 QTc: 505 Interpretive Statements ATRIAL FIBRILLATION WITH RAPID VENTRICULAR RESPONSE LEFT BUNDLE BRANCH BLOCK [120+ ms QRS DURATION, 80+ ms Q/S IN V1/V2, 85+ ms R IN I/aVL/V5/V6] Compared to ECG 05/23/2020 21:54:34 No significant changes Electronically Signed On 05-24-2020 11:04:28 OTR OWNER OPERATOR by Jah Chong M.D. [email or web address]
--- NOTE | 2020-05-23 20:13 | ED_ITS ---
HPI - SOB/Dyspnea General: Chief Complaint: Shortness of Breath/Dyspnea Stated Complaint: SOB Time Seen by Provider: 05/23/20 20:11 Source: patient and family Mode of arrival: wheelchair Limitations: no limitations History of Present Illness: HPI Narrative: Mrs. Perrin is a very nice 85-year-old female who comes in complaining of increased shortness of breath for the past 2 weeks. She states one of her primary care providers made to medication changes to try to help with her generalized medical problems but this is caused her to become more short of breath and has not helped anything according to her. She denies any chest pain. States she chronically has leg swelling which is no different but no better. She denies any orthopnea but does have dyspnea on exertion. Patient states that her symptoms are not getting better but just progressively getting worse and have been so over these past 2 weeks. She denies fever, cough, chills or any other infectious type symptoms. Associated symptoms: Deny abdominal pain, chest congestion, chest pain, diaphoresis, dizziness, extremity pain, fever(s), hemoptysis, lightheadedness, nausea, orthopnea, palpitations, syncope or vomiting Review of Systems Const: Denies: fever(s), chills, body aches, fatigue, malaise or diaphoresis Eyes: Denies: change in vision, blurry vision, photophobia, eye discomfort, eye discharge, eye redness or yellow eyes ENMT: Denies: throat pain, odynophagia, hoarseness, swelling of lips/tongue, ear or mastoid pain, ear discharge, change in hearing or nasal discharge Card: Denies: chest pain, palpitations, irregular heart rhythm, edema, lightheadedness, syncope, pre-syncope, dyspnea on exertion or orthopnea Resp: Reports: dyspnea; Denies: productive cough, non-productive cough, wheezing, hemoptysis or chest congestion GI: Denies: abdominal pain, nausea, vomiting, hematemesis, coffee ground emesis, heartburn, diarrhea, constipation, GI cramping, hematochezia or melena : Denies: flank pain, dysuria, urinary frequency, urinary urgency or hematuria Musc: Denies: neck pain, back pain, extremity pain, extremity swelling, joint pain, joint swelling, joint redness, joint warmth or joint stiffness Skin/Breast: Denies: rash, pruritus, erythema, skin pain or skin tenderness Neuro: Denies: headache(s), numbness in extremities, weakness in extremities, sensory changes, lack of coordination, difficulty walking, dizziness, vertigo, confusion, Slurred speech present or seizure-like activity Shay/Lymph: Denies: easy bruising, easy bleeding, petechiae, purpura or enlarged lymph nodes All/Imm: Denies: urticaria, throat swelling, tongue swelling, facial swelling or acute wheezing PFSH ED PFSH: Medical History Asthma 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 Atrial fibrillation rate dependent CAD (coronary artery disease) -antiplatelets on hold for now in case of need for procedure; on statin and BB CHF (congestive heart failure) -no acute exacerbation currently -Echo as noted above Chronic anticoagulation COPD (chronic obstructive pulmonary disease) -no acute exacerbation -CXR noted -supplemental oxygen as needed; uses 3 L O2 qhs Diabetes GERD (gastroesophageal reflux disease) History of [place] (myocardial infarction) History of traumatic rupture of spleen Hyperlipidemia -on statin Hypertension -normotensive; continue to monitor vitals PAD (peripheral artery disease) Post-herpetic polyneuropathy (~05/2019) SVT (supraventricular tachycardia) Systolic heart failure Surgical History History of hysterectomy Hx of CABG S/P CABG x 3 Family History Other CAD (coronary artery disease) Cancer Hypertension Social History Smoking and tobacco status: never smoked Second hand smoke exposure: No Smoking risk assessment/counseling performed?: No Alcohol intake: never Desire information about alcohol rehabilitation?: No Counseling given: No Desire information about substance/drug rehabilitation?: No Counseling given: No Adopted: No Caregiver/support person: No Lives independently: Yes Household members: family Housing: House Marital status: / Number of children: 4 Current occupational status: retired History of recent travel: No Current gender identity: Female Physical Exam Const: COMMON NORMALS: no acute distress, patient oriented x3, no limitations and alert GENERAL APPEARANCE: cooperative HENMT: COMMON NORMALS: normocephalic, atraumatic, external ears normal, EAC's normal and Normal external nose present HEAD & SCALP: normal to inspection, normocephalic and atraumatic FACE & SINUS: normal facial exam and face symmetric NOSE: Normal external nose present and Normal nares present EXT ERNAL EAR: Yes external ears normal EXTERNAL AUDITORY CANAL: EAC's normal MOUTH: Normal oral and palatal mucosa present, lip normal and tongue normal Eye: COMMON NORMALS: Equal, round and reactive pupils present and conjunctivae normal GENERAL EYE: appearance normal, both eyes and all related structures ALIGNMENT: Yes alignment normal PERIORBITAL: periorbital findings normal EYELID: eyelids normal CONJUNCTIVA: Yes conjunctivae normal SCLERA: sclerae normal PUPIL: Yes Equal, round and reactive pupils present Neck/C-Spine: COMMON NORMALS: full ROM, no lymphadenopathy, supple, no meningeal signs and no JVD GENERAL: Yes normal visual inspection and Yes trachea midline Chest: COMMONS NORMALS: normal inspection of the chest and normal palpation of entire chest wall Resp: COMMON NORMALS: normal respiratory effort, No retractions, No use of accessory muscles and clear to auscultation bilaterally EFFORT & INSPECTION: Yes able to speak in complete sentences and Yes symmetric chest movement AUSCULTATION: clear to auscultation bilaterally, no crackles, no rales, no rhonchi and no wheezes Cardio: COMMON NORMALS: no JVD, regular rate, regular rhythm, S1 normal heart sound present and S2 normal heart sound present RATE: regular rate RHYTHM: regular rhythm HEART SOUNDS: S1 normal heart sound present, S2 normal heart sound present, no click, no gallops, no murmurs and no rubs GI: COMMON NORMALS: Soft to palpation and No hepatosplenomegaly present PALPATION: Yes Soft to palpation, No Tenderness to palpation present (GI), No Guarding due to palpation present (GI), No Rigid due to palpation, Yes No hepatosplenomegaly present, No Hernia present, No Palpable mass present and No Pulsatile mass present : COMMON NORMALS: Yes no CVA tenderness BLADDER/KIDNEY EXAM: Yes no CVA tenderness EXTERNAL FEMALE EXAM: No Hernia present Back/Pelvis: COMMON NORMALS: no CVA tenderness, thoracic and lumbar spine normal to inspection, no thoracic nor lumbar tenderness and thoraco-lumbar ROM normal Extremity: COMMON NORMALS: normal to inspection, full ROM, capillary refill normal, no joint enlargement, no clubbing, cyanosis or edema and no calf tenderness Neuro: COMMON NORMALS: patient oriented x3, CN's II-XII intact bilaterally, moves all extremities, no focal motor deficits and no sensory deficits noted SENSORIUM/ORIENTATION: Yes alert MENINGEAL SIGNS: Yes no meningeal signs SPEECH: speech normal Psych: COMMON NORMALS: mental status grossly normal, Normal thought process present, cooperative, normal affect, speech normal and activity/motor behavior normal SPEECH: Yes normal speech THOUGHT PROCESS: Normal thought process present Skin: COMMON NORMALS: no rashes or lesions noted, turgor normal, no jaundice, no petechiae and no mottling GENERAL SKIN EXAM: no rashes or lesions noted and turgor normal Course Vital Signs: Vital signs: Vital Signs Temperature 97.8 F 05/24/20 03:48 Pulse Rate 112 H 05/24/20 03:48 Respiratory Rate 20 H 05/24/20 03:48 Blood Pressure 148/91 05/24/20 03:48 Pulse Oximetry 97 05/24/20 03:48 MDM - SOB/Dyspnea MDM Narrative: Medical decision making narrative: Upon further history the patient symptoms have been coming on for quite some time. Her doctor, Dr. Vargas was worried about arrhythmia she does have a 21-day event monitor in her chart. Per review of this it appears as though the patient is having intermittent runs of A. fib with RVR. I believe this likely was causing her increased shortness of breath tonight. Patient's heart rates got up to as high as 150 here. Because of this she had to be placed on a Cardizem drip. Patient denies any chest pain presently. Her cardiac enzymes have trended down. I reviewed the case with Dr. Rich and he agrees to admit for further evaluation and care. Lab Data: Attestation: I reviewed the patient's lab results. Labs: Lab Results 05/23/20 05/23/20 05/23/20 Range/Units 20:50 20:50 20:50 WBC 9.2 (4.0-10.0) 10^3/ uL RBC 4.78 (4.1-5.3) 10^6/u L Hgb 13.4 (11.5-15.3) g/dL Hct 44.3 (37.0-47.0) % MCV 92.7 (81-99) fL MCH 28.0 (28.0-34.0) pg MCHC 30.2 (30.0-36.0) g/dL RDW 13.8 (12.1-15.1) % Plt Count 245 (130-400) 10^3/c mm MPV 11.6 H (7.4-10.4) fL Neut % (Auto) 73.1 % Lymph % (Auto) 15.1 % [place] % (Auto) 9.3 % Eos % (Auto) 1.4 % Baso % (Auto) 0.7 % Neut # (Auto) 6.71 (1.8-7.7) 10^3/u L Lymph # (Auto) 1.4 (0.8-4.8) 10^3/u L [place] # (Auto) 0.9 (0.2-0.9) 10^3/u L Eos # (Auto) 0.1 (0.0-0.8) 10^3/u L Baso # (Auto) 0.1 (0.0-0.1) 10^3/u L Nucleated RBC % (a uto) 0 % Nucleated RBCs # 0.0 /100WBC Specimen Type Sample Site ABG pH (7.35-7.45) ABG pCO2 (35-45) mmHg ABG pO2 (80.0-100.0) mmH g ABG HCO3 (22-26) mmol/L ABG Base Excess (-2.0-2.0) mmol/ L Shabbir Test Hematocrit (37-47) % O2 Delivery Device Network Engineer ID Sodium 141 (136-145) mmol/L Potassium 4.5 (3.5-5.1) mmol/L Chloride 105 (98-107) mmol/L Carbon Dioxide 27 (22-29) mmol/L Anion Gap 13.5 (5-19) BUN 18 (8-23) mg/dL Creatinine 1.0 H (0.5-0.9) mg/dL GFR Calculation Not Reportable Glucose 142 H (65-115) mg/dL Calculated Osmolal ity 296 H (285-295) mOsm/k g Calcium 9.7 (8.5-10.5) mg/dL Magnesium (1.7-2.3) mg/dL Total Bilirubin 0.7 (0.15-1.2) mg/dL AST 24 (0-32) U/L ALT 14 (0-33) U/L Alkaline Phosphata se 145 H (35-105) IU/L Troponin T Baselin e 26 H (0-10) ng/L Troponin T 120 Min [place] (0-10) ng/L Delta Troponin T (0-10) ABS# NT-Pro-B Natriuret Pep 3341 H (0-450) pg/mL Total Protein 7.1 (6.6-8.7) g/dL Albumin 4.3 (3.5-5.2) g/dL Globulin 2.8 (1.3-4.6) g/dL Procalcitonin (0-0.5) ng/mL TSH (0.27-4.20) uIU/ mL 05/23/20 05/23/20 05/23/20 Range/Units 20:50 20:50 21:50 WBC (4.0-10.0) 10^3/ uL RBC (4.1-5.3) 10^6/u L Hgb (11.5-15.3) g/dL Hct (37.0-47.0) % MCV (81-99) fL MCH (28.0-34.0) pg MCHC (30.0-36.0) g/dL RDW (12.1-15.1) % Plt Count (130-400) 10^3/c mm MPV (7.4-10.4) fL Neut % (Auto) % Lymph % (Auto) % [place] % (Auto) % Eos % (Auto) % Baso % (Auto) % Neut # (Auto) (1.8-7.7) 10^3/u L Lymph # (Auto) (0.8-4.8) 10^3/u L [place] # (Auto) (0.2-0.9) 10^3/u L Eos # (Auto) (0.0-0.8) 10^3/u L Baso # (Auto) (0.0-0.1) 10^3/u L Nucleated RBC % (a uto) % Nucleated RBCs # /100WBC Specimen Type Arterial Sample Site Radial, right ABG pH 7.36 (7.35-7.45) ABG pCO2 41.6 (35-45) mmHg ABG pO2 147.0 H (80.0-100.0) mmH g ABG HCO3 23.5 (22-26) mmol/L ABG Base Excess -1.9 (-2.0-2.0) mmol/ L Shabbir Test Pos Hematocrit 38.8 (37-47) % O2 Delivery Device Nc Network Engineer ID [place] Sodium (136-145) mmol/L Potassium (3.5-5.1) mmol/L Chloride (98-107) mmol/L Carbon Dioxide (22-29) mmol/L Anion Gap (5-19) BUN (8-23) mg/dL Creatinine (0.5-0.9) mg/dL GFR Calculation Glucose (65-115) mg/dL Calculated Osmolal ity (285-295) mOsm/k g Calcium (8.5-10.5) mg/dL Magnesium 2.3 (1.7-2.3) mg/dL Total Bilirubin (0.15-1.2) mg/dL AST (0-32) U/L ALT (0-33) U/L Alkaline Phosphata se (35-105) IU/L Troponin T Baselin e (0-10) ng/L Troponin T 120 Min [place] (0-10) ng/L Delta Troponin T (0-10) ABS# NT-Pro-B Natriuret Pep (0-450) pg/mL Total Protein (6.6-8.7) g/dL Albumin (3.5-5.2) g/dL Globulin (1.3-4.6) g/dL Procalcitonin 0.06 (0-0.5) ng/mL TSH 4.89 H (0.27-4.20) uIU/ mL 05/23/20 Range/Units 23:08 WBC (4.0-10.0) 10^3/ uL RBC (4.1-5.3) 10^6/u L Hgb (11.5-15.3) g/dL Hct (37.0-47.0) % MCV (81-99) fL MCH (28.0-34.0) pg MCHC (30.0-36.0) g/dL RDW (12.1-15.1) % Plt Count (130-400) 10^3/c mm MPV (7.4-10.4) fL Neut % (Auto) % Lymph % (Auto) % [place] % (Auto) % Eos % (Auto) % Baso % (Auto) % Neut # (Auto) (1.8-7.7) 10^3/u L Lymph # (Auto) (0.8-4.8) 10^3/u L [place] # (Auto) (0.2-0.9) 10^3/u L Eos # (Auto) (0.0-0.8) 10^3/u L Baso # (Auto) (0.0-0.1) 10^3/u L Nucleated RBC % (a uto) % Nucleated RBCs # /100WBC Specimen Type Sample Site ABG pH (7.35-7.45) ABG pCO2 (35-45) mmHg ABG pO2 (80.0-100.0) mmH g ABG HCO3 (22-26) mmol/L ABG Base Excess (-2.0-2.0) mmol/ L Shabbir Test Hematocrit (37-47) % O2 Delivery Device Network Engineer ID Sodium (136-145) mmol/L Potassium (3.5-5.1) mmol/L Chloride (98-107) mmol/L Carbon Dioxide (22-29) mmol/L Anion Gap (5-19) BUN (8-23) mg/dL Creatinine (0.5-0.9) mg/dL GFR Calculation Glucose (65-115) mg/dL Calculated Osmolal ity (285-295) mOsm/k g Calcium (8.5-10.5) mg/dL Magnesium (1.7-2.3) mg/dL Total Bilirubin (0.15-1.2) mg/dL AST (0-32) U/L ALT (0-33) U/L Alkaline Phosphata se (35-105) IU/L Troponin T Baselin e (0-10) ng/L Troponin T 120 Min [place] 22.84 H (0-10) ng/L Delta Troponin T -3.16 L (0-10) ABS# NT-Pro-B Natriuret Pep (0-450) pg/mL Total Protein (6.6-8.7) g/dL Albumin (3.5-5.2) g/dL Globulin (1.3-4.6) g/dL Procalcitonin (0-0.5) ng/mL TSH (0.27-4.20) uIU/ mL Imaging Data^: CXR: Attestation: I personally reviewed and interpreted this imaging study as follows: My impression: Cardiomegaly with mild pulmonary vascular congestion and bilateral pleural effusions. EKG Data^: EKG 1: Attestation: I personally reviewed and interpreted this EKG as follows: EKG Interpretation Date: 05/24/20 EKG interpretation time: 21:54 Interpretation: Atrial fibrillation with rapid ventricular spots 108 beats a minute, left bundle branch block morphology, unchanged from previous. EKG 2: Attestation: I personally reviewed and interpreted this EKG as follows: EKG Interpretation Date: 05/24/20 EKG interpretation time: 22:47 Interpretation: Atrial fibrillation with a rapid ventricular response 113 beats a minute, left bundle branch block morphology. Unchanged from previous. Discharge Plan Discharge Patient Disposition: Admitted As Inpatient Admit Provider: Yesenia Rich Coding Level of Care Code ED Quality Assurance Calibrator for Chg Fwd Exam Comprehensive
[2020-05-23 20:37] VITALS: BP 181/156; PULSE 115; RESP 23; O2SAT 98
[2020-05-23 21:03] LABS: Basophils # 0.1 10^3/uL (0.0-0.1); Basophils % 0.7 %; Eosinophils # 0.1 10^3/uL (0.0-0.8); Eosinophils % 1.4 %; Hematocrit 44.3 % (37.0-47.0); Hemoglobin 13.4 g/dL (11.5-15.3); Lymphocytes # 1.4 10^3/uL (0.8-4.8); Lymphocytes % 15.1 %; Mean Corpuscular HGB Conc 30.2 g/dL (30.0-36.0); Mean Corpuscular Volume 92.7 fL (81-99); Mean Platelet Volume 11.6 fL (7.4-10.4); Monocytes # 0.9 10^3/uL (0.2-0.9); Monocytes % 9.3 %; Neutrophils # 6.71 10^3/uL (1.8-7.7); Neutrophils % 73.1 %; Nucleated Red Blood Cells % 0 %; Platelet Count 245 10^3/cmm (130-400); Red Blood Count 4.78 10^6/uL (4.1-5.3); Red Cell Distribution Width 13.8 % (12.1-15.1); White Blood Count 9.2 10^3/uL (4.0-10.0)
[2020-05-23 21:19] LABS: Troponin(5th) Baseline 26 ng/L (0-10)
[2020-05-23 21:28] LABS: Alanine Aminotransferase 14 U/L (0-33); Albumin Level 4.3 g/dL (3.5-5.2); Alkaline Phosphatase 145 IU/L (35-105); Anion Gap 13.5 (5-19); Aspartate Amino Transferase 24 U/L (0-32); Blood Urea Nitrogen 18 mg/dL (8-23); Calcium 9.7 mg/dL (8.5-10.5); Carbon Dioxide 27 mmol/L (22-29); Chloride 105 mmol/L (98-107); Creatinine Clr Calc Pharmacy 39.0742; Globulin 2.8 g/dL (1.3-4.6); Glucose 142 mg/dL (65-115); NT Pro B Type Natriuretic Pept 3341 pg/mL (0-450); Osmolality Calculated 296 mOsm/kg (285-295); Potassium 4.5 mmol/L (3.5-5.1); Sodium 141 mmol/L (136-145); Total Bilirubin 0.7 mg/dL (0.15-1.2); Total Protein 7.1 g/dL (6.6-8.7)
[2020-05-23 22:03] LABS: ABG PCO2 41.6 mmHg (35-45); ABG PH Result 7.36 (7.35-7.45); Arterial Blood Gas Hematocrit 38.8 % (37-47); Base Excess ABG -1.9 mmol/L (-2.0-2.0); Blood Gas Allen Test Pos; Blood Gas Sample Site Radial, right; Blood Gas Sample Type Arterial; HCO3 ABG 23.5 mmol/L (22-26); Oxygen Device NC
[2020-05-23 22:04] VITALS: BP 181/156; PULSE 96; RESP 18; O2SAT 100
--- NOTE | 2020-05-23 22:32 | ECG_ITS ---
[facility] Test Date: 2020-05-23 Pat Name: Denia Price Department: Room: Gender: Female Pressure Testing Technician: : 1935 Requested By: Oma Guallpa Order Number: [id number] José Bender MD: Jah Chong M.D. Measurements Intervals [place] Rate: 108 P: [place]: QRS: -5 QRSD: 129 T: 68 QT: 371 QTc: 497 Interpretive Statements ATRIAL FIBRILLATION WITH RAPID VENTRICULAR RESPONSE LEFT BUNDLE BRANCH BLOCK [120+ ms QRS DURATION, 80+ ms Q/S IN V1/V2, 85+ ms R IN I/aVL/V5/V6] Compared to ECG 03/08/2020 14:49:46 Sinus rhythm no longer present Electronically Signed On 05-24-2020 11:04:44 PHOTOGEOLOGIST by Jah Chong M.D. [id number]
[2020-05-23 22:58] VITALS: BP 186/131; PULSE 123; RESP 19; O2SAT 95
[2020-05-23] MEDS: FUROsemide 10 mg/mL SDV 4mL 40 MG IVP (23:16)
[2020-05-23 23:18] VITALS: BP 186/131; PULSE 97; RESP 18; O2SAT 99
--- NOTE | 2020-05-23 23:22 | PM.HP ---
Providers/Chief Complaint Primary Care Provider: Jamaica Wray DO Chief Complaint: SOB History of Present Illness Denia Price is a 85 year old female presented today with worsening shortness of breath. She has history of atrial fibrillation on Eliquis, reduced ejection fraction heart failure, EF 36%, oxygen dependent COPD, was admitted in February for bradycardia currently under Holter surveillance, verapamil was discontinued, amiodarone dose was reduced to 50 mg and metoprolol to 12.5 mg, patient experienced hypotension to [place] that is why these medications were tried which seemed to help her, she follows up with heart care service. Patient is stating that for last 2 nights she has been having shortness of breath. She tried to increase her home O2 to 5 L, last night she felt a little better but kept having shortness of breath in the morning she mostly gets shortness of breath at night endorsing orthopnea PND, today she was going out for breakfast with her daughter she started having shortness of breath at that time daughter brought her to the ER. Diagnostics in the ER revealed CHF exacerbation, A. fib RVR she was started on Cardizem drip patient was not complaining of any chest pain. She denied any nausea, fever, cough, productive sputum dysuria or diarrhea. Chest x-ray consistent with pulmonary edema I ordered procalcitonin which unremarkable, she is not septic antibiotics were not administered however Levaquin first dose was given in the ER, I would avoid any QTC prolongation medication secondary to her amiodarone use Review of Systems Const: Reports: fatigue; Denies: fever(s), chills or body aches Eyes: Denies: change in vision ENMT: Denies: throat pain Card: Reports: irregular heart rhythm, edema, swelling of feet/ankles, dyspnea on exertion and orthopnea; Denies: chest pain Resp: Reports: dyspnea and non-productive cough GI: Denies: abdominal pain : Reports: urinary incontinence; Denies: flank pain Musc: Denies: neck pain Skin/Breast: Denies: rash Neuro: Denies: headache(s) Psych: Denies: anxiety Endo: Denies: polyuria Shay/Lymph: Denies: easy bruising All/Imm: Denies: urticaria Medications/Allergies Home Medications Medication Instructions Recorded Confirmed Last Taken Type formoterol fumarate 20 mcg/2 mL 2 ml INHALATION BID 0204/30/20 03/07/20 12:00 History solution for nebulization nitroglycerin 0.4 mg sublingual 0.4 mg SUBLINGUAL Q5M PRN 07/03/19 04/30/20 Unknown History tablet lidocaine 5 % topical patch 1 patch TOPICAL DAILY #30 each 08/06/19 04/30/20 Unknown Rx rosuvastatin 40 mg tablet 40 mg PO DAILY #90 tab 08/28/19 04/30/20 03/06/20 20:00 Rx magnesium L-lactate 84 mg 84 mg PO DAILY #30 tab 11/03/19 04/30/20 03/06/20 08:00 Rx tablet,extended release duloxetine 30 mg capsule,delayed 30 mg PO BID #60 cap 01/14/20 04/30/20 03/07/20 08:00 Rx release topiramate 25 mg tablet 25 mg PO BID #60 tab 01/14/20 04/30/20 03/07/20 09:00 Rx isosorbide mononitrate 30 mg PO DAILY 03/08/20 04/30/20 03/07/20 08:00 History budesonide [Pulmicort] 0.5 mg INHALATION BID #14 ml 03/09/20 04/30/20 Unknown Rx famotidine 40 mg tablet 40 mg PO DAILY #30 tab 03/26/20 04/27/20 Unknown Rx metoprolol succinate 25 mg 12.5 mg PO DAILY #90 tab 04/15/20 04/30/20 Unknown Rx tablet,extended release 24 hr furosemide 40 mg tablet 20 mg PO DAILY #60 tab 04/20/20 04/30/20 Unknown Rx apixaban 5 mg tablet 5 mg PO BID #180 tab 04/28/20 04/30/20 Unknown Rx aspirin 81 mg tablet,delayed 81 mg PO DAILY #90 tab 04/28/20 04/30/20 Unknown Rx release potassium chloride 20 mEq 20 meq PO DAILY #90 tab 04/29/20 04/30/20 Unknown Rx tablet,extended release mupirocin 2 % topical ointment 1 applic TOPICAL BID #22 g 04/30/20 04/30/20 Unknown Rx montelukast 10 mg tablet 10 mg PO DAILY #30 tab 05/01/20 Unknown Rx amiodarone 100 mg tablet 100 mg PO DAILY #90 tab 05/05/20 05/05/20 Unknown Rx Allergies Allergy/AdvReac Type Severity Reaction Status Date / Time cetirizine Allergy Unknown Verified 05/23/20 16:16 codeine Allergy Unknown Verified 05/23/20 16:16 hydromorphone [From Dilaudid] Allergy ADR-Confusion Verified 05/23/20 16:16 and mean naproxen Allergy Unknown Verified 05/23/20 16:16 Penicillins Allergy ALGY-Hives Verified 05/23/20 16:16 Sulfa (Sulfonamide Allergy Unknown Verified 05/23/20 16:16 Antibiotics) tramadol Allergy Unknown Verified 05/23/20 16:16 PFSH Acute PFSH: Medical History Asthma 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 Atrial fibrillation rate dependent CAD (coronary artery disease) -antiplatelets on hold for now in case of need for procedure; on statin and BB CHF (congestive heart failure) -no acute exacerbation currently -Echo as noted above Chronic anticoagulation COPD (chronic obstructive pulmonary disease) -no acute exacerbation -CXR noted -supplemental oxygen as needed; uses 3 L O2 qhs Diabetes GERD (gastroesophageal reflux disease) History of [place] (myocardial infarction) History of traumatic rupture of spleen Hyperlipidemia -on statin Hypertension -normotensive; continue to monitor vitals PAD (peripheral artery disease) Post-herpetic polyneuropathy (~05/2019) SVT (supraventricular tachycardia) Systolic heart failure Surgical History History of hysterectomy Hx of CABG S/P CABG x 3 Family History Other CAD (coronary artery disease) Cancer Hypertension Social History Smoking and tobacco status: never smoked Second hand smoke exposure: No Smoking risk assessment/counseling performed?: No Alcohol intake: never Desire information about alcohol rehabilitation?: No Counseling given: No Desire information about substance/drug rehabilitation?: No Counseling given: No Adopted: No Caregiver/support person: No Lives independently: Yes Household members: family Housing: House Marital status: / Number of children: 4 Current occupational status: retired History of recent travel: No Current gender identity: Female Vitals/I&O/Wt Last Vital Signs Temp 96.8 F L 05/23/20 16:14 Pulse 97 05/23/20 23:18 Resp 18 05/23/20 23:18 BP 186/131 05/23/20 23:18 Pulse Ox 99 05/23/20 23:18 Weight last 48 hrs Weight 75.296 kg Physical Exam Narrative: EXAM NARRATIVE: Very pleasant elderly female Currently saturating well on 5 L nasal cannula Current heart rate fluctuate between 100-1 30, systolic blood pressure 160s She is not complaining of active chest pain Clinically looks fluid overloaded Bilateral lower extremity 3+ pitting edema S1, S2 variable with active signs of heart failure Bilateral breath sounds with mild rhonchi at the bases Abdomen soft nontender EOMI, PERRLA GCS 15 no neurological deficit Appropriate mood and affect Data : 05/23/20 20:50 05/23/20 20:50 A&P Assessment and plan (1) Atrial fibrillation with RVR: Status: Acute (2) CHF exacerbation: Status: Acute Additional A&P Information CHF exacerbation secondary to tachyarrhythmia Ischemic cardiomyopathy EF 36% heart failure with ejection fraction with pulmonary hypertension No signs of ischemia or [place], EKG showing left bundle branch block with A. fib No active chest pain, troponin with negative delta, BNP 3300 Clinical signs of fluid overload I will start on Bumex 1 mg p.o. daily Bilateral pulmonary edema however left lower base aeration is better as compared to previous x-ray, No signs of pneumonia, procalcitonin unremarkable she is not septic, afebrile no leukocytosis I would not keep her on antibiotics for now A. fib with acute RVR She has been struggling with proper dosage for her AV pennie blocking agents, recently her amiodarone was decreased from 100 mg to 50 mg and metoprolol 12.5 mg due to bradycardia For now she is on Cardizem drip at 5, closely monitor on telemetry floor We will check her TSH and magnesium level potassium normal Continue Eliquis no active bleeding hemoglobin stable I do believe A. fib RVR is the reason of her active heart failure, I would not increase her amiodarone dose for now however I would increase her metoprolol dose to 25 mg daily, would not add digoxin at this point COPD without acute exacerbation currently saturating well on 5 L nasal cannula Cardiac diet Full code DVT prophylaxis not needed currently she is on Eliquis Attestations Medical Necessity Statement*: Yaima graves for A. fib RVR needs adjustment of medication for CHF exacerbation anticipating stay in the hospital cross more than 2 midnights Time Spent in Patient Care: (>than 50% of time spent in counselling and/or direct pt care on unit). 50mins Coding Level of Care Code Acute Calender Worker Helper for g Fwd Diagnoses Atrial fibrillation with RVR I48.91 CHF exacerbation I50.9
[2020-05-23 23:46] LABS: Troponin 5 2HR 22.84 ng/L (0-10)
[2020-05-23] MEDS: levoFLOXacin 750 mg Tablet PO (23:48)
[2020-05-23 23:53] LABS: Troponin 5 2HR Delta -3.16 ABS# (0-10)
[2020-05-23 23:59] VITALS: BP 168/96; PULSE 95; RESP 19; O2SAT 98
[2020-05-24] VITALS (14 sets, daily range): BP systolic 124–161; BP diastolic 69–100; PULSE 79–114; RESP 15–20; TEMP 36.6–36.8; O2SAT 94–100
[2020-05-24 00:02] LABS: Procalcitonin 0.06 ng/mL (0-0.5)
[2020-05-24 00:31] LABS: SARS Covid-2 Antigen Negative (Negative)
--- NOTE | 2020-05-24 00:35 | PC.NURSE ---
PT ARRIVED TO ROOM 103 VIA ED. PT VS BP 161/91, HR 97, RR 20. PT IS IN A-FIB WITH RVR AND IS ON A CARDIZEM GTT AT 5MG/HR. PT IS ALERT AND ORIENTATED. PT WAS ORIENTATED TO ROOM. WILL CONTINUE TO MONITOR.
[2020-05-24 02:39] LABS: Magnesium 2.3 mg/dL (1.7-2.3); Thyroid Stimulating Hormone 4.89 uIU/mL (0.27-4.20)
[2020-05-24] MEDS: ipratropium-albuterol 3 mL Neb INHALATION ×3 (02:52→21:25)
--- NOTE | 2020-05-24 04:16 | PC.NURSE ---
PT HAS GOTTEN UP SEVERAL TIMES TO USE THE BSC. PT HAS BEEN EDUCATED TO USE CALL LIGHT. PT STILL DOESN'T USE CALL LIGHT. BED ALARM IS SET. PT DENIES PAIN. WILL CONTINUE TO MONITOR.
[2020-05-24 04:44] LABS: Basophils % 0.2 %; Eosinophils # 0.1 10^3/uL (0.0-0.8); Eosinophils % 1.7 %; Hematocrit 40.2 % (37.0-47.0); Lymphocytes # 2.1 10^3/uL (0.8-4.8); Lymphocytes % 25.5 %; Mean Corpuscular HGB Conc 29.9 g/dL (30.0-36.0); Mean Corpuscular Hemoglobin 28.3 pg (28.0-34.0); Mean Corpuscular Volume 94.8 fL (81-99); Mean Platelet Volume 12.4 fL (7.4-10.4); Monocytes # 0.9 10^3/uL (0.2-0.9); Monocytes % 10.6 %; Neutrophils # 5.11 10^3/uL (1.8-7.7); Neutrophils % 61.5 %; Nucleated Red Blood Cells % 0 %; Platelet Count 176 10^3/cmm (130-400); Red Blood Count 4.24 10^6/uL (4.1-5.3); Red Cell Distribution Width 13.7 % (12.1-15.1); White Blood Count 8.3 10^3/uL (4.0-10.0)
[2020-05-24 05:14] LABS: Blood Urea Nitrogen 17 mg/dL (8-23); Calcium 8.9 mg/dL (8.5-10.5); Carbon Dioxide 28 mmol/L (22-29); Chloride 105 mmol/L (98-107); Glucose 112 mg/dL (65-115); Osmolality Calculated 302 mOsm/kg (285-295); Sodium 145 mmol/L (136-145)
[2020-05-24 05:21] LABS: Anion Gap 15.7 (5-19); Potassium 3.7 mmol/L (3.5-5.1)
[2020-05-24] MEDS: amiodarone 200 mg Tablet 50 MG PO (08:30)
[2020-05-24] MEDS: duloxetine 30 mg Capsule PO ×2 (08:30→17:52)
[2020-05-24] MEDS: montelukast sodium 10 mg Tablet PO (08:31)
[2020-05-24] MEDS: magnesium lactate 84 mg Tablet PO (08:31)
[2020-05-24] MEDS: topiramate 25 mg Tablet PO ×2 (08:31→17:52)
[2020-05-24] MEDS: bumetanide 1 mg Tablet PO (08:31)
[2020-05-24] MEDS: aspirin 81 mg EC Tablet PO (08:31)
[2020-05-24] MEDS: potassium chloride ER 20 mEq Tablet PO (08:31)
[2020-05-24] MEDS: atorvastatin 40 mg Tablet 80 MG PO (08:32)
[2020-05-24] MEDS: metoprolol succinate ER (24 HR) 25 mg Tablet PO (08:32)
[2020-05-24] MEDS: apixaban 5 mg Tablet PO ×2 (08:32→17:52)
--- NOTE | 2020-05-24 12:45 | PM.PN ---
Subjective Subjective: Interval history: Feels subjectively improved this morning. States dyspnea is better, however objectively still tachypneic on moving from bed to bedside commode. Has been titrated off Cardizem drip at this present time, heart rate is controlled between 80-100. 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 fib No active chest pain, troponin with negative delta, BNP 3300 Clinical signs of fluid overload Continue Bumex 1 mg p.o. daily Bilateral pulmonary edema however left lower base aeration is better as compared to previous x-ray, No signs of pneumonia, procalcitonin unremarkable she is not septic A. fib with acute RVR She has been struggling with proper dosage for her AV pennie blocking agents, Cardizem drip has been titrated off Continue amiodarone 50 mg p.o. daily and metoprolol 25 mg p.o. daily, currently rate controlled between 80-100. Continue Eliquis no active bleeding hemoglobin stable COPD, noted to be wheezing, will resume nebulization with budesonide and DuoNeb. Without acute exacerbation currently saturating well on 5 L nasal cannula Cardiac diet Full code DVT prophylaxis not needed currently she is on Eliquis Attestations Medical Necessity Statement*: Heart rate better controlled today, noted to be wheezing, added nebulization, closely monitor heart rate with titration of AV pennie agents Coding Level of Care Code Acute Sap Sd Analyst for Chg Fwd Diagnoses Atrial fibrillation with RVR I48.91 CHF exacerbation I50.9
--- NOTE | 2020-05-24 20:41 | PC.NURSE ---
PT IS ABLE TO ANSWER QUESTIONS APPROPRIATELY, BUT THEN GOES OFF TOPIC. PT GOT MONTH AND DAY OF BIRTHDAY CORRECT BUT NOT THE YEAR. PT STATES THAT HER SON HAD AN IV JUST LIKE HERS AND THAT HIS SPLIT HIS ARM DOWN THE CENTER SO SHE IS WORRIED THAT HERS WOULD DO THE SAME. PT IS WORRIED BECAUSE THE PRINTER FLOOR COVERING ASSISTANT STATED THAT HER ARMS HAVE SUN SPOTS ON THEM AND SHE DOESN'T KNOW WHAT THAT MEANS. OTHER [place] PT WAS NICE AND COOPERATIVE. PT DENIES ANY PAIN. WILL CONTINUE TO MONITOR.
[2020-05-24 20:58] LABS: Bilirubin Urine Neg (Negative); Blood Urine Neg (Negative); Glucose Urine UA Norm (Normal); Ketones Urine Negative (Negative); Leukocyte Esterase Urine Negative (Negative); Nitrate Urine Negative (Negative); Protein Urine Neg (Negative); RBC Urine 0-4 /hpf (0-2); Specific Gravity, Urine 1.015 (1.005-1.030); Urine Appearance SL Hazy (CLEAR); Urine Color Yellow (Yellow); Urobilinogen Urine Norm (Negative); pH Urine 5 (5-7)
[2020-05-24 20:59] LABS: Add Urine Culture? No; Bacteria Urine TRACE /hpf; Hyaline Casts Urine 0-4 /lpf; Mucus Urine TRACE /hpf; Squamous Epithelial Cell Urine 0-4 /hpf (0-5)
[2020-05-24] MEDS: budesonide 0.5 mg/2 mL Neb 0.25 MG INHALATION (21:25)
[2020-05-25] VITALS (10 sets, daily range): BP systolic 98–138; BP diastolic 57–85; PULSE 84–103; RESP 16–23; TEMP 36.7; O2SAT 86–99
[2020-05-25 03:10] LABS: Basophils % 0.4 %; Eosinophils # 0.2 10^3/uL (0.0-0.8); Eosinophils % 2.3 %; Hematocrit 38.3 % (37.0-47.0); Hemoglobin 11.6 g/dL (11.5-15.3); Lymphocytes # 1.5 10^3/uL (0.8-4.8); Lymphocytes % 20.7 %; Mean Corpuscular HGB Conc 30.3 g/dL (30.0-36.0); Mean Corpuscular Hemoglobin 28.2 pg (28.0-34.0); Mean Corpuscular Volume 93.2 fL (81-99); Mean Platelet Volume 11.5 fL (7.4-10.4); Monocytes % 13.4 %; Neutrophils # 4.69 10^3/uL (1.8-7.7); Neutrophils % 62.9 %; Nucleated Red Blood Cells % 0 %; Platelet Count 210 10^3/cmm (130-400); Red Blood Count 4.11 10^6/uL (4.1-5.3); Red Cell Distribution Width 13.9 % (12.1-15.1); White Blood Count 7.5 10^3/uL (4.0-10.0)
[2020-05-25] MEDS: ipratropium-albuterol 3 mL Neb INHALATION ×2 (03:35→09:12)
[2020-05-25 03:43] LABS: Alanine Aminotransferase 10 U/L (0-33); Albumin Level 3.4 g/dL (3.5-5.2); Alkaline Phosphatase 114 IU/L (35-105); Anion Gap 13.4 (5-19); Aspartate Amino Transferase 16 U/L (0-32); Blood Urea Nitrogen 17 mg/dL (8-23); Calcium 9.1 mg/dL (8.5-10.5); Carbon Dioxide 27 mmol/L (22-29); Chloride 105 mmol/L (98-107); Globulin 2.8 g/dL (1.3-4.6); Glucose 136 mg/dL (65-115); Osmolality Calculated 298 mOsm/kg (285-295); Potassium 3.4 mmol/L (3.5-5.1); Sodium 142 mmol/L (136-145); Total Bilirubin 0.5 mg/dL (0.15-1.2); Total Protein 6.2 g/dL (6.6-8.7)
--- NOTE | 2020-05-25 06:03 | PC.NURSE ---
PT HAD AN UNEVENTFUL NIGHT. PT IS RESTING IN BED. PT DENIES PAIN. WILL CONTINUE TO MONITOR.
--- NOTE | 2020-05-25 07:11 | XR_ITS ---
WS: [id number] Exam: XR chest 1V portable [id number] Date/Time of Exam: 05/25/2020 7:30 AM Reason For Exam: follow up effusion, edema Comparison 05/23/2020. Mild cardiac enlargement with pulmonary vascular congestion. Bibasal pleural effusions are noted. Ple ural effusion the left is slightly improved but no other significant change. No pneumothorax. Signs o f previous CABG surgery. Bilateral axillary artery stents are noted. XR/XR chest 1V portable [id number] IMPRESSION: 1. Cardiac enlargement with signs of congestive heart failure and bilateral ple ural effusions. Effusion on the left shows some improvement but no other signif icant change in the overall appearance the chest.
--- NOTE | 2020-05-25 08:00 | PC.NURSE ---
patient resting in bed at this time. all needs within reach. patient alert and orientated X3, but when asked the month replied March no April. when asked the year she said, 2009.
[2020-05-25] MEDS: budesonide 0.5 mg/2 mL Neb 0.25 MG INHALATION (09:12)
[2020-05-25] MEDS: bumetanide 1 mg Tablet PO (09:16)
[2020-05-25] MEDS: montelukast sodium 10 mg Tablet PO (09:16)
[2020-05-25] MEDS: aspirin 81 mg EC Tablet PO (09:16)
[2020-05-25] MEDS: apixaban 5 mg Tablet PO (09:16)
[2020-05-25] MEDS: atorvastatin 40 mg Tablet 80 MG PO (09:16)
[2020-05-25] MEDS: metoprolol succinate ER (24 HR) 25 mg Tablet PO (09:16)
[2020-05-25] MEDS: topiramate 25 mg Tablet PO (09:16)
[2020-05-25] MEDS: magnesium lactate 84 mg Tablet PO (09:16)
[2020-05-25] MEDS: potassium chloride ER 20 mEq Tablet PO (09:17)
[2020-05-25] MEDS: amiodarone 200 mg Tablet 50 MG PO (09:17)
[2020-05-25] MEDS: duloxetine 30 mg Capsule PO (09:17)
--- NOTE | 2020-05-25 10:24 | PM.DCS ---
Discharge Providers Date of Admission: 05/23/20 23:26 Date of Discharge: May 25, 2020 Attending Provider at Admission: Yesenia Rich MD Attending Provider at Discharge: Cherie Kelsey MD Primary Care Provider: [place] Wray DO Diagnoses at Discharge Discharge Diagnosis (1) Atrial fibrillation with RVR: Status: Acute (2) CHF exacerbation: Status: Acute Reason for Visit Reason for Visit: SOB Hospital Course Hospital Course Denia Price is a 85 year old female presented today with worsening shortness of breath. She has history of atrial fibrillation on Eliquis, reduced ejection fraction heart failure, EF 36%, oxygen dependent COPD, was admitted in February and has been working with cardiology as an outpatient to titrate her doses of amiodarone and metoprolol as previously she has had episodes of symptomatic bradycardia. She presented currently on May 23, 2020 after developing shortness of breath and palpitations and was found to be in A. fib with RVR for which she was started on Cardizem drip. Chest x-ray did show evidence of pulmonary edema. There was a question of possible infiltrate, however patient did not have a white count, she was afebrile and her procalcitonin was negative, therefore she is she was not started on any antibiotics and has done well overall. For control of her atrial fibrillation she was initially started on Cardizem infusion for about 12 hours, then able to be titrated off. Amiodarone is being continued at 100 mg p.o. daily which is her recent dosing, this has been confirmed with the daughter. Her metoprolol was increased from 12.5 mg p.o. daily to 25 mg p.o. daily. With this increase in her beta-blockers her heart rate is currently controlled between 80 to 100 bpm. She received diuresis with p.o. Bumex while being inpatient and is being discharged on the same. She is advised to stop her Lasix with the initiation of Bumex. Change in her dosages and medications was discussed with her outpatient magazine keeper Dr. Vargas and patient is advised to follow-up with him in the office in about 7 to 10 days. 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 Discharge Data Data Completed and Pending: Completed Studies During Hospitalization Category Date Time Status XR chest 1V anitha ble [id number] Routine Exams 05/25/20 07:11 Completed XR chest 1V anitha ble [id number] Stat Exams 05/23/20 16:31 Completed Labs from last 24 hours 05/25/20 05/25/20 05/24/20 02:36 02:36 15:35 WBC 7.5 RBC 4.11 Hgb 11.6 Hct 38.3 MCV 93.2 MCH 28.2 MCHC 30.3 RDW 13.9 Plt Count 210 MPV 11.5 H Neut % (Auto) 62.9 Lymph % (Auto) 20.7 [place] % (Auto) 13.4 Eos % (Auto) 2.3 Baso % (Auto) 0.4 Neut # (Auto) 4.69 Lymph # (Auto) 1.5 [place] # (Auto) 1.0 H Eos # (Auto) 0.2 Baso # (Auto) 0.0 Nucleated RBC % (a uto) 0 Nucleated RBCs # 0.0 Sodium 142 Potassium 3.4 L Chloride 105 Carbon Dioxide 27 Anion Gap 13.4 BUN 17 Creatinine 0.8 GFR Calculation Not Reportable Glucose 136 H Calculated Osmolal ity 298 H Calcium 9.1 Total Bilirubin 0.5 AST 16 ALT 10 Alkaline Phosphata se 114 H Total Protein 6.2 L Albumin 3.4 L Globulin 2.8 Urine Color Yellow Urine Appearance Sl hazy Urine pH 5 Ur Specific Gravit y 1.015 Urine Protein Neg Urine Glucose (UA) Norm Urine Ketones Negative Urine Blood Neg Urine Nitrate Negative Urine Bilirubin Neg Urine Urobilinogen Norm Ur Leukocyte Purnima ase Negative Urine RBC 0-4 H Urine WBC 5-10 H Ur Squamous Epith Cells 0-4 H Amorphous Sediment Not Reportable Urine Bacteria Trace Hyaline Casts 0-4 H Urine Mucus Trace Vitals: Last Vital Signs Temp 98.1 F 05/25/20 04:00 Pulse 86 05/25/20 09:10 Resp 16 05/25/20 09:10 BP 125/85 05/25/20 08:00 Pulse Ox 99 05/25/20 09:10 Discharge Plan Discharge Patient Disposition: Home Condition: Stable Prescriptions: New bumetanide 1 mg Tablet 1 mg PO DAILY 30 Days Qty: 30 RF: 0 Continued Lidoderm 5 % adhesive patch,medicated 1 patch TOPICAL DAILY Qty: 30 RF: 2 mupirocin 2 % ointment 1 applic topical BID Qty: 22 RF: 1 amiodarone 100 mg tablet 100 mg PO DAILY Qty: 90 RF: 2 nitroglycerin [Nitrostat] 0.4 mg tablet, sublingual 0.4 mg SUBLINGUAL Q5M PRN (Reason: Chest Pain) RF: 0 Perforomist 20 mcg/2 mL solution for nebulization 2 ml INHALATION BID@08,20 RF: 0 rosuvastatin 40 mg tablet 40 mg PO DAILY Qty: 90 RF: 3 magnesium L-lactate [Magtab] 84 mg tablet extended release 84 mg PO DAILY Qty: 30 RF: 5 duloxetine [Cymbalta] 30 mg capsule,delayed release(DR/EC) 30 mg PO BID Qty: 60 RF: 2 topiramate 25 mg tablet 25 mg PO BID Qty: 60 RF: 2 famotidine 40 mg tablet 40 mg PO DAILY Qty: 30 RF: 5 aspirin 81 mg tablet,delayed release (DR/EC) 81 mg PO DAILY Qty: 90 RF: 3 Eliquis 5 mg tablet 5 mg PO BID Qty: 180 RF: 3 potassium chloride 20 mEq tablet extended release 20 meq PO DAILY Qty: 90 RF: 0 montelukast [Singulair] 10 mg tablet 10 mg PO DAILY Qty: 30 RF: 2 metoprolol succinate 25 mg Tablet Extended Release 24 Hr 25 mg PO DAILY@09 RF: 0 isosorbide mononitrate 30 mg tablet extended release 24 hr 30 mg PO DAILY@0800 RF: 0 budesonide [Pulmicort] 0.5 mg/2 mL suspension for nebulization 0.5 mg INHALATION BID Qty: 14 RF: 0 Discontinued furosemide 40 mg tablet 20 mg PO DAILY Qty: 60 RF: 2 Discharge Orders: Discharge Order (Routine); Ordered 05/25/20 Ordered By: Cherie Kelsey Other Ambulatory Orders: DME: Oxygen (Order) Location: None Selected Ordered By: Cherie Kelsey Referrals: Watson Vargas MD [Physician] - 06/02/20 10:30 am (You have a cardiology followup with Dr. Vargas at [facility] on June 02 at 10:30am) Patient Instructions: Bumetanide (By mouth), Heart Failure (DC), Coronary Artery Disease (DC), Atrial Fibrillation (DC), Using Oxygen at Home (DC), Gastroesophageal Reflux Disease (DC), CHF Stoplight Discharge Attestations Time Spent in Discharge Care*: greater than 30 min Specific Discharge Activities: educating patient, educating and/or supporting family/caregiver, discussing with pcp/other providers, documenting/other paperwork and evaluating patient/reviewing data Status at Discharge: Cognitive status at discharge: mildly impaired cognition, Behavioral status at discharge: cooperative, Quality Metrics Clinical Quality Measures During this hospital stay, did patient experience: None Coding Level of Care Code Acute Route Sales Delivery Drivers Supervisor for Chg Fwd Diagnoses Atrial fibrillation with RVR I48.91 CHF exacerbation I50.9
--- NOTE | 2020-05-25 14:28 | PC.NURSE ---
discharge instructions given to patient and daughter. both verbalized an understanding. all questions answered at this time. they both understood that they were waiting on the oxygen to be delivered.
--- NOTE | 2020-05-25 16:15 | PC.NURSE ---
oxygen delivered. patient ambulated to wheelchair and was taken to exit where private vehicle picked her up.
--- NOTE | 2020-05-25 16:58 | PC.RESP ---
Pulmonary Rehab information sent to patient.
== END 2020-05-25 16:10 | disposition home or self-care (01) ==
LOC: ER 20:11 → CSU 05-24 00:01
PROVIDERS: Nurse Practitioner Family; Admitting Provider Internal Medicine; Emergency Provider Emergency Medicine; PCP Family Medicine; Visit Provider Student in an Organized Health Care Education/Training Program
DX: I48.91 Unspecified atrial fibrillation (principal); I11.0 Hypertensive heart disease with heart failure; I50.20 Unspecified systolic (congestive) heart failure; J44.1 Chronic obstructive pulmonary disease with (acute) exacerbation; Z99.81 Dependence on supplemental oxygen; Z79.82 Long term (current) use of aspirin; I25.10 Atherosclerotic heart disease of native coronary artery without angina pectoris; E11.9 Type 2 diabetes mellitus without complications; I25.2 Old myocardial infarction; E78.5 Hyperlipidemia, unspecified; Z95.1 Presence of aortocoronary bypass graft
CPT/HCPCS: 12345; 36415; 36600; 71045; 80048; 80053; 81001; 82803; 83735; 83880; 84145; 84443; 84484; 85025; 87426; 93005; 94640; 96365; 96366; 96375; 99283; 99285; G0378; J1940; J3490; J7626

== ENCOUNTER → 2020-06-02 11:27 | Outpatient (BNVA) | payer MEDICARE, SELFPAY | PROVIDERS: PCP Family Medicine; Visit Provider Internal Medicine Cardiovascular Disease | DX: R06.02 Shortness of breath (principal); R07.9 Chest pain, unspecified; I25.10 Atherosclerotic heart disease of native coronary artery without angina pectoris; I50.43 Acute on chronic combined systolic (congestive) and diastolic (congestive) heart failure | CPT/HCPCS: 80048; 83880 ==

== ENCOUNTER → 2020-08-11 14:36 | Outpatient (BNVA) | payer MEDICARE, SELFPAY | PROVIDERS: PCP Nurse Practitioner; Visit Provider Nurse Practitioner | DX: E11.22 Type 2 diabetes mellitus with diabetic chronic kidney disease (principal); N18.2 Chronic kidney disease, stage 2 (mild); B02.23 Postherpetic polyneuropathy; K21.9 Gastro-esophageal reflux disease without esophagitis; J45.909 Unspecified asthma, uncomplicated; R41.3 Other amnesia; E78.5 Hyperlipidemia, unspecified; I12.9 Hypertensive chronic kidney disease with stage 1 through stage 4 chronic kidney disease, or unspecified chronic kidney disease | CPT/HCPCS: 80053; 80061; 82607; 83036; 84443; 85025 ==

== ENCOUNTER 2020-09-07 07:11 | Outpatient (CLI) | payer MEDICARE, SELFPAY ==
[2020-09-07 07:24] VITALS: BMI 24.7
--- NOTE | 2020-09-07 07:41 | SUR.PREOP ---
STRESS CANCEL Patient had caffiene this morning prior to arrival. Unable to complete due to caffeine intake. Rescheduled. Gave patient updated list/instruction sheet. Scheduling to call and set new appointment date/time. Discharged in stable condition.
== END 2020-09-07 07:12 | disposition home or self-care (01) ==
LOC: CDL 07:14
PROVIDERS: PCP Nurse Practitioner; Visit Provider Internal Medicine Cardiovascular Disease
DX: I25.10 Atherosclerotic heart disease of native coronary artery without angina pectoris; I50.23 Acute on chronic systolic (congestive) heart failure; E78.5 Hyperlipidemia, unspecified; E11.22 Type 2 diabetes mellitus with diabetic chronic kidney disease; N18.2 Chronic kidney disease, stage 2 (mild)
CPT/HCPCS: 80048; 83880

== ENCOUNTER → 2020-09-23 12:21 | Outpatient (BNVA) | payer MEDICARE, SELFPAY | PROVIDERS: PCP Nurse Practitioner; Visit Provider Nurse Practitioner | DX: L29.9 Pruritus, unspecified (principal); I25.10 Atherosclerotic heart disease of native coronary artery without angina pectoris; I50.43 Acute on chronic combined systolic (congestive) and diastolic (congestive) heart failure; E11.22 Type 2 diabetes mellitus with diabetic chronic kidney disease; E78.5 Hyperlipidemia, unspecified; N18.2 Chronic kidney disease, stage 2 (mild); I48.91 Unspecified atrial fibrillation | CPT/HCPCS: 80048; 83880 ==

== ENCOUNTER 2020-09-29 07:36 | Outpatient (CLI) | payer MEDICARE, SELFPAY ==
[2020-09-29 07:57] VITALS: BMI 24.7
--- NOTE | 2020-09-29 07:58 | ECG_ITS ---
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 Interpretive Statements NAME OF STUDY: LEXISCAN SESTAMIBI STRESS TEST INDICATION: Congestive Heart Failure PROCEDURE: At the baseline, the EKG revealed atrial fibrillation with a controlled ventricular response rate of 90 bpm. The baseline blood pressure was 114/70 mm Hg with a heart rate of 83 beats/min. Lexiscan was infused over a period of 20 seconds. A total of 0.4 milligrams of Lexiscan was infused. The stress phase was continued for a total of 5 minutes. Heart rate at the end of the stress phase was 77 with a blood pressure 105/69. The EKG at the peak infusion revealed no significant changes. Sestamibi was injected 20 seconds after the Lexiscan infusion. Blood pressure at the end of the recovery phase was 121/69 with a heart rate of 80 per minute. CONCLUSION: 1. No significant EKG changes with the LexiScan infusion 2. No LexiScan induced chest pain or cardiac arrhythmia 3. Normal blood pressure and heart rate response 4. Sestamibi/sestamibi perfusion scan pending; see separate report. Electronically Signed On 09-30-2020 18:27:19 CDT by Watson Vargas M.D. [id number]
--- NOTE | 2020-09-29 07:58 | NMCV_ITS ---
NM rubin perf SPECT r/s* [id number] Denia Price Age: 85 Gender: F : 1935 Exam Date: 09/29/2020 08:48 Ordering Phys: Watson Vargas MD ([email or web address]) Technologist: FLAKO Llanos Exam Location: [facility] Indications: SHORTNESS OF BREATH STRESS TEST Please see separate stress test report in [facility] for full findings IMAGE PROTOCOL Rest/Stress 1 Lexiscan Day Radiopharmaceutical Dose (mCi) Administration Site Administered by Rest: Tc-99m 10.8 IV FLAKO Llanos Sestamibi Stress:Tc-99m 32.4 IV FLAKO Jean Sestamibi Rest: 29-Sep-2020 60 Discovery 630 Stress: 29-Sep-2020 30 Discovery 630 0.4mg Lexiscan. Supine position only as patient was unable to lay prone. SPECT RESULTS Technical Quality: Excellent Raw Data Analysis: Normal Image Corrections: No attenuation or motion correction applied Summed Stress Score: 0 Summed Rest Score: 3 Summed Difference Score: 0 PERFUSION FINDINGS Patchy areas of decreased tracer uptake was noted in the anteroseptal and apical septal regions. No significant reversibility was noted in these regions FUNCTIONAL RESULTS (calculated via Gated SPECT) Stress Image LV EF (%): 51 Stress EDV (mL):78 TID: 1.04 Stress ESV (mL):38 FUNCTIONAL FINDINGS: Segmental wall motion analysis revealed diffuse hypokinesia of the septum IMPRESSIONS 1. Myocardial perfusion may revealing patchy areas of persistent decreased tracer uptake in the anteroseptal and septal regions, suggestive of myocardial scarring versus attrition artifact. 2. Normal LV ejection fraction 51%. 3. LV wall motion abnormalities as mentioned above. 4. Normal LV volume No significant coronary ischemia, based on the above findings Dr Watson Vargas MD [facility] (Electronically Signed) Final Date: 29 Sep 2020 19:39 S
--- NOTE | 2020-09-29 09:21 | SUR.PREOP ---
Patient reports no pain or discomfort prior to the start of the procedure.
[2020-09-29] MEDS: regadenoson 0.4 Mg/5 ml Syringe IVP (09:32)
[2020-09-29 09:48] VITALS: BP 121/69; PULSE 84
== END 2020-09-29 07:37 | disposition home or self-care (01) ==
LOC: CDL 07:38
PROVIDERS: PCP Nurse Practitioner; Visit Provider Internal Medicine Cardiovascular Disease
DX: I50.9 Heart failure, unspecified (principal); R06.02 Shortness of breath
CPT/HCPCS: 78452; 93017; A9500; J2785

== ENCOUNTER → 2021-01-12 12:10 | Outpatient (BNVA) | payer MEDICARE, SELFPAY | PROVIDERS: PCP Nurse Practitioner; Visit Provider Nurse Practitioner | DX: E11.22 Type 2 diabetes mellitus with diabetic chronic kidney disease (principal); N18.2 Chronic kidney disease, stage 2 (mild); Z20.822 Contact with and (suspected) exposure to COVID-19; E55.9 Vitamin D deficiency, unspecified; B02.23 Postherpetic polyneuropathy; J45.909 Unspecified asthma, uncomplicated; I10 Essential (primary) hypertension; K21.9 Gastro-esophageal reflux disease without esophagitis; Z79.51 Long term (current) use of inhaled steroids | CPT/HCPCS: 80053; 80061; 82306; 83036; 84443; 85025; 87635 ==

== ENCOUNTER → 2021-04-08 11:56 | Outpatient (BNVA) | payer MEDICARE, SELFPAY | PROVIDERS: PCP Nurse Practitioner; Visit Provider Nurse Practitioner | DX: J45.909 Unspecified asthma, uncomplicated (principal); Z79.51 Long term (current) use of inhaled steroids; K21.9 Gastro-esophageal reflux disease without esophagitis; I10 Essential (primary) hypertension; R63.0 Anorexia; E78.5 Hyperlipidemia, unspecified | CPT/HCPCS: 80053; 82607; 84443; 85025 ==